=== PATIENT | male | born 1970 | race Caucasian/White ===

== ENCOUNTER 2016-04-27 19:44 | Emergency (ER) | payer BC, MEDICARE ==
[~2016-04-27] VITALS: Ht 175.3 cm; Wt 149.5 kg
[~2016-04-27 19:44] MED LIST: ABILIFY2 MG PO; ABILIFY5 MG PO; ALLEGRA ALLERG180 MG PO; AMARYL4 MG PO; AMLOPIDINE PO; ASPI81CT PO; ASPIR-LOW81 MG PO; ASPIRIN 32325 MG/TAB PO; ASPIRIN E.C. 8181 MG PO; BACTRIM DS 8001 TAB PO; BUSPAR 15MG TAB15 MG PO; BUSPAR DIVIDOSE15 MG PO; BUSPAR10 MG PO; CARAFATE 1GM1 G PO; CARDI-OMEGA1000 MG PO; CARTIA XT180 MG PO; CELEXA 20MG20 MG/TAB PO; CEPHALEXIN500 M1 PO; CIPRO 500MG TA500 MG PO; CLOPIDOGREL PO; COLACE 100100 MG/CAP PO; COZAAR 50MG50 MG/TAB PO; COZAAR100 MG PO; CYMBALTA 30MG30 MG PO; CYMBALTA 60MG60 MG PO; DEPO-TESTOS100 MG/ML IM; DITROPAN 5MG TAB5 MG PO; DOXYCYCLINE 10100 MG PO; EFFIENT10 MG PO; FARXIGA5 PO; FLEXERIL10 MG PO; FLUOXETINE PO; FORTAMET500 MG PO; GABAPENTIN400 M1 PO; GEMFIBROZIL600 MG PO; GLUCOPHAGE1000 MG PO; GLUCOPHAGE500 MG PO; HUMULIN N 10100 U/ML SC; HUMULIN R 10100 U/ML SC; HUMULIN R U-100 U/ML IJ; HUMULIN SC; IMDUR 30MG30 MG/TAB PO; IMDUR 60MG60 MG/TAB PO; INSULIN 70/3100 U/ML SQ; INSULIN HUMA100 U/ML IJ; INSULIN N (N100 U/ML SC; INSULIN STAN U SQ; INVOKAMET1; INVOKAMET4; ISOSORBIDE30 MG PO; JANUVIA 100MG100 MG PO; K-DUR 2020 MEQ PO; LAMICTAL 100MG100 MG PO; LAMICTAL 25MG T25 MG PO; LAMICTAL ODT50 MG PO; LAMICTAL200 MG PO; LANTUS100 U/ML SC; LANTUS100 U/ML SQ; LASIX 20MG TABL20 MG PO; LASIX 40MG TABL40 MG PO; LASIX40 MG PO; LEVAQUIN 5500 MG/TA1 PO; LEVEMIR SQ; LEVEMIR100 U/ML SC; LIPITOR 80MG80 MG PO; LIPITOR80 MG PO; LISINOPRIL10 MG PO; LISINOPRIL5 MG PO; LOPRESSOR 550 MG/TAB PO; LORTAB 7.5/5001 TAB PO; LYRICA 100MG C100 M1 PO; MELATONIN0.3 MG PO; METOPROLOL SUCC25 MG PO; METRONIDAZOLE500 MG PO; MOTRIN800 MG PO; MULTIPLE VITAMI1 CAP PO; MYRBETR25MG PO; NEURONTIN400 MG PO; NITRO-DUR0.4 MG/PAT TD; NITROQUICK0.4 MG SL; NITROSTAT0.4 MG/TAB SL; NORCO 325 MG-51 TAB PO; NORCO 325 MG-7.1 TAB PO; NORVASC 5MG5 MG/TAB PO; NORVASC5 MG PO; NOVOLIN N100 U/ML SC; NOVOLIN R100 U/ML; NOVOLIN R100 U/ML SC; NOVOLIN R100 U/ML SQ; NOVOLOG 100U100 U/ML SQ; NOVOLOG FLEX100 U/ML SC; NOVOLOG FLEX100 U/ML SQ; NOVOLOG100 U/ML SC; OMEPRAZOLE40 MG PO; OXYCODONE5 MG PO; PERCOCET 325 MG1 TA2 PO; PLAVIX 75MG TAB75 MG PO; PRAVASTATIN SOD80 MG PO; PRILOSEC 20MG20 MG PO; PROTONIX 40MG T40 MG PO; PROTONIX20 MG PO; PROZAC 20MG20 MG PO; PROZAC40 MG PO; RANITIDINE HYD300 MG PO; RISPERDAL 0.5M0.5 MG PO; ROXICODONE 55 MG/TAB PO; ST. JOSEPH81 M2 PO; SYNJARDY 5-1,01 EACH PO; TAZTIA180; TESSALON PERLE200 MG PO; TOPCARE ASPIRI325 MG PO; TOPROL XL25 MG PO; TOUJEO300 U/ML SQ; TRAZODO50 MG PO; TYLENOL 500MG500 MG PO; VANCOMYCIN 11 G/VIA1 IV; VICODIN 5/5001 UDTAB PO; ZANTAC 150150 MG PO; ZANTAC 150MG T150 MG PO; ZESTRIL10 MG PO; ZITHROMAX Z PA250 MG PO; ZOFRAN 4MG T4 MG/TAB PO; [UNRECOGNIZED DRUG - OTHER] SQ; fish oil PO
[2016-04-27 19:48] VITALS: TEMP 100.2
[2016-04-27 20:49] LABS: BASO % 0.3 % (0.0-2.0); EOS # 0.1 (0.0-0.7); GRAN # 8.9 (1.4-6.5); GRAN % 71.1 % (42.2-75.2); HEMATOCRIT 47.3 % (42.0-52.0); HEMOGLOBIN 16.1 g/dl (13.5-18.0); LYMPH # 2.1 (1.2-3.4); LYMPH % 16.7 % (20.0-51.0); MEAN CELL VOLUME 80 fl (80.0-100.0); MEAN CORPUSCULAR HEMOGLOBIN 27 pg (27.0-31.0); MEAN CORPUSCULAR HGB CONC 34 g/dl (33.0-37.0); MEAN PLATELET VOLUME 9.5 fl (7.4-10.4); MONO # 1.3 (0.1-0.6); MONO % 10.4 % (1.7-9.3); PLATELET COUNT 217 K/mm3 (130-400); RED BLOOD COUNT 5.89 M/mm3 (4.20-5.60); REDCELL DISTRIBUTION WIDTH-CV 16.4 % (11.5-14.5); WHITE BLOOD COUNT 12.6 K/mm3 (4.8-10.8)
[2016-04-27 20:58] LABS: ADJUSTED CALCIUM 9.9 mg/dL (8.4-10.2); ALBUMIN 4.4 gm/dL (3.5-5.0); BILIRUBIN,TOTAL 1.1 mg/dL (0.0-1.0); CALCIUM 10.2 mg/dL (8.4-10.2); CREATININE, serum 0.96 mg/dL (0.66-1.25); POTASSIUM 4.1 mmol/L (3.4-5.0); TOTAL PROTEIN 8.4 gm/dL (6.4-8.2)
[2016-04-27 21:00] LABS: PH 5 (5-8); SQUAMOUS EPITHELIAL None Seen /hpf; URINE APPEARANCE Clear; URINE BACTERIA None Seen /hpf; URINE BILIRUBIN Negative (NEGATIVE); URINE BLOOD Negative (NEGATIVE); URINE COLOR Straw; URINE GLUCOSE 3+ (NEGATIVE); URINE KETONE Negative (NEGATIVE); URINE RBC None Seen /hpf; URINE UROBILINOGEN Negative (NEGATIVE); URINE WBC 0-2 /hpf
[2016-04-27] MEDS ORDERED: NORCO 325 MG-51 TAB PO (21:53)
[2016-04-27 22:20] VITALS: BP 137/73; PULSE 74
== END 2016-04-27 22:20 | disposition home or self-care (01) ==
LOC: COL.ER 19:44
PROVIDERS: Family Medicine
DX: R10.11 Right upper quadrant pain (principal); R91.1 Solitary pulmonary nodule
CPT/HCPCS: J2270; J2405; J7030; Q9967

== ENCOUNTER → 2016-06-19 | Outpatient (CLI) | payer BC, MEDICARE ==
[~2016-06-19] MED LIST changes: +IMODIUM 2MG CAPS2 MG PO; +LYRICA 150MG C150 MG PO; +MELATONIN3 M1 PO; +MULTI VITAMINS1 TAB PO; +NOVOLOG 100U100 U/M1 SQ; +REXULTI1 MG PO; +SYNJARDY 12.5-1 EACH PO; +TRULICITY1.5 MG/0.5 SQ; +VITAMIN D 1001000 IU PO
== END ==
LOC: BHSO 09:26
DX: F31.81 Bipolar II disorder (principal)

== ENCOUNTER → 2016-07-29 | Outpatient (CLI) | payer BC, MEDICARE | LOC: BHSO 15:27 | DX: F33.1 Major depressive disorder, recurrent, moderate (principal) ==

== ENCOUNTER → 2016-08-29 | Outpatient (CLI) | payer BC, MEDICARE | LOC: BHSO 11:28 | DX: F41.1 Generalized anxiety disorder (principal) ==

== ENCOUNTER 2016-09-22 13:01 | Day surgery (SDC) | payer BC, MEDICARE ==
[~2016-09-22] VITALS: Ht 175.3 cm; Wt 151.9 kg
[~2016-09-22 13:01] MED LIST changes: -IMODIUM 2MG CAPS2 MG PO; -LYRICA 150MG C150 MG PO; -MELATONIN3 M1 PO; -MULTI VITAMINS1 TAB PO; -NOVOLOG 100U100 U/M1 SQ; -REXULTI1 MG PO; -SYNJARDY 12.5-1 EACH PO; -TRULICITY1.5 MG/0.5 SQ; -VITAMIN D 1001000 IU PO
[2016-09-22 13:56] VITALS: BP 115/67; PULSE 64; TEMP 98.6
[2016-09-22] MEDS ORDERED: REXULTI1 MG PO (14:05)
[2016-09-22] MEDS ORDERED: LASIX 20MG TABL20 MG PO (14:06)
[2016-09-22] MEDS ORDERED: SYNJARDY 12.5-1 EACH PO (14:07)
[2016-09-22] MEDS ORDERED: VITAMIN D 1001000 IU PO (14:11)
[2016-09-22] MEDS ORDERED: IMODIUM 2MG CAPS2 MG PO (14:11)
[2016-09-22] MEDS ORDERED: MELATONIN3 M1 PO (14:12)
[2016-09-22] MEDS ORDERED: MULTI VITAMINS1 TAB PO (14:13)
[2016-09-22 14:37] VITALS: BP 101/71; PULSE 67; TEMP 98.8
[2016-09-22 14:52] VITALS: BP 120/71; PULSE 65
[2016-09-22 15:07] VITALS: BP 124/75; PULSE 63
[2016-09-22 15:22] VITALS: BP 132/78; PULSE 64
[2016-09-22 16:13] VITALS: BP 107/70; PULSE 62
== END 2016-09-22 15:40 | disposition home or self-care (01) ==
LOC: SDCO 13:01
DX: K21.0 Gastro-esophageal reflux disease with esophagitis (principal); K29.30 Chronic superficial gastritis without bleeding; R13.10 Dysphagia, unspecified; I50.9 Heart failure, unspecified; I38 Endocarditis, valve unspecified; G47.33 Obstructive sleep apnea (adult) (pediatric); I27.2 Other secondary pulmonary hypertension; I25.119 Atherosclerotic heart disease of native coronary artery with unspecified angina pectoris; K58.0 Irritable bowel syndrome with diarrhea; Z86.14 Personal history of Methicillin resistant Staphylococcus aureus infection; E10.43 Type 1 diabetes mellitus with diabetic autonomic (poly)neuropathy; E10.40 Type 1 diabetes mellitus with diabetic neuropathy, unspecified; K31.84 Gastroparesis; Z79.4 Long term (current) use of insulin; I10 Essential (primary) hypertension; I73.9 Peripheral vascular disease, unspecified; F31.9 Bipolar disorder, unspecified; F32.9 Major depressive disorder, single episode, unspecified; K76.0 Fatty (change of) liver, not elsewhere classified; J45.909 Unspecified asthma, uncomplicated; Z89.512 Acquired absence of left leg below knee; Z89.511 Acquired absence of right leg below knee; Z89.431 Acquired absence of right foot; Z95.1 Presence of aortocoronary bypass graft
CPT/HCPCS: J2704

== ENCOUNTER 2016-10-25 10:10 | Emergency (ER) | payer BC, MEDICARE ==
[~2016-10-25] VITALS: Ht 175.3 cm; Wt 149.1 kg
[~2016-10-25 10:10] MED LIST changes: +IMODIUM 2MG CAPS2 MG PO; +MELATONIN3 M1 PO; +MULTI VITAMINS1 TAB PO; +REXULTI1 MG PO; +SYNJARDY 12.5-1 EACH PO; +VITAMIN D 1001000 IU PO
[2016-10-25 10:13] VITALS: TEMP 98.1
[2016-10-25 10:57] LABS: BASO % 0.2 % (0.0-2.0); EOS # 0.2 (0.0-0.7); EOS % 2.5 % (0-4.0); GRAN # 5.6 (1.4-6.5); GRAN % 63.6 % (42.2-75.2); HEMATOCRIT 50.2 % (42.0-52.0); LYMPH % 23.2 % (20.0-51.0); MEAN CELL VOLUME 83 fl (80.0-100.0); MEAN CORPUSCULAR HEMOGLOBIN 28 pg (27.0-31.0); MEAN CORPUSCULAR HGB CONC 34 g/dl (33.0-37.0); MEAN PLATELET VOLUME 9.6 fl (7.4-10.4); MONO # 0.9 (0.1-0.6); MONO % 9.9 % (1.7-9.3); PLATELET COUNT 180 K/mm3 (130-400); RED BLOOD COUNT 6.04 M/mm3 (4.20-5.60); REDCELL DISTRIBUTION WIDTH-CV 16.5 % (11.5-14.5); WHITE BLOOD COUNT 8.8 K/mm3 (4.8-10.8)
[2016-10-25 11:09] LABS: ADJUSTED CALCIUM 9.2 mg/dL (8.4-10.2); ALBUMIN 4.5 gm/dL (3.5-5.0); BILIRUBIN,TOTAL 0.9 mg/dL (0.0-1.0); CALCIUM 9.6 mg/dL (8.4-10.2); CREATININE, serum 1.07 mg/dL (0.66-1.25); TOTAL PROTEIN 8.4 gm/dL (6.4-8.2)
[2016-10-25] MEDS ORDERED: NOVOLOG 100U100 U/M1 SQ (11:35)
[2016-10-25] MEDS ORDERED: TRULICITY1.5 MG/0.5 SQ (11:40)
[2016-10-25] MEDS ORDERED: LYRICA 150MG C150 MG PO (11:40)
[2016-10-25 12:27] LABS: PH 5 (5-8); SQUAMOUS EPITHELIAL 0-2 /hpf; URINE APPEARANCE Clear; URINE BACTERIA None Seen /hpf; URINE BILIRUBIN Negative (NEGATIVE); URINE BLOOD Negative (NEGATIVE); URINE COLOR Yellow; URINE GLUCOSE 3+ (NEGATIVE); URINE KETONE Negative (NEGATIVE); URINE RBC 0-2 /hpf; URINE UROBILINOGEN Negative (NEGATIVE); URINE WBC 0-2 /hpf
[2016-10-25 13:10] VITALS: BP 137/87; PULSE 79
== END 2016-10-25 13:11 | disposition home or self-care (01) ==
LOC: COL.ER 10:10
PROVIDERS: Emergency Medicine
DX: K52.9 Noninfective gastroenteritis and colitis, unspecified (principal); E11.43 Type 2 diabetes mellitus with diabetic autonomic (poly)neuropathy; K31.84 Gastroparesis; I25.10 Atherosclerotic heart disease of native coronary artery without angina pectoris; I25.2 Old myocardial infarction; I10 Essential (primary) hypertension; Z95.1 Presence of aortocoronary bypass graft; Z89.512 Acquired absence of left leg below knee; Z89.511 Acquired absence of right leg below knee; Z79.4 Long term (current) use of insulin; E66.01 Morbid (severe) obesity due to excess calories; Z68.42 Body mass index [BMI] 45.0-49.9, adult
CPT/HCPCS: J2405; J3010; J7030; Q9967

== ENCOUNTER → 2016-11-07 | Outpatient (CLI) | payer MEDICARE, BC ==
[~2016-11-07] MED LIST changes: +LYRICA 150MG C150 MG PO; +NOVOLOG 100U100 U/M1 SQ; +TRULICITY1.5 MG/0.5 SQ
== END ==
LOC: BHSO 13:39
DX: F33.1 Major depressive disorder, recurrent, moderate (principal)

== ENCOUNTER → 2016-12-18 | Outpatient (CLI) | payer MEDICARE, BC | LOC: WCC 08:33 | DX: E11.621 Type 2 diabetes mellitus with foot ulcer (principal); L97.519 Non-pressure chronic ulcer of other part of right foot with unspecified severity; L84 Corns and callosities; Z89.512 Acquired absence of left leg below knee; Z89.511 Acquired absence of right leg below knee | CPT/HCPCS: 17717; 27510; A6197; A6212; G0463 ==

== ENCOUNTER → 2016-12-25 | Outpatient (CLI) | payer MEDICARE, BC | LOC: WCC 09:44 | DX: L89.899 Pressure ulcer of other site, unspecified stage (principal); E11.9 Type 2 diabetes mellitus without complications; Z89.512 Acquired absence of left leg below knee; Z89.511 Acquired absence of right leg below knee | CPT/HCPCS: 17717; 27510; A6197; A6212; G0463 ==

== ENCOUNTER → 2016-12-30 | Outpatient (CLI) | payer MEDICARE, BC | LOC: BHSO 12:44 | DX: F31.73 Bipolar disorder, in partial remission, most recent episode manic (principal) ==

== ENCOUNTER → 2016-12-31 | Outpatient (CLI) | payer MEDICARE, BC | LOC: WCC 11:40 | DX: T87.89 Other complications of amputation stump (principal); L89.899 Pressure ulcer of other site, unspecified stage; Z89.512 Acquired absence of left leg below knee; Z89.511 Acquired absence of right leg below knee; E11.9 Type 2 diabetes mellitus without complications | CPT/HCPCS: 17717; 27510; A6197; A6212 ==

== ENCOUNTER → 2017-01-05 | Outpatient (CLI) | payer MEDICARE, BC | LOC: WCC 08:26 | DX: L89.899 Pressure ulcer of other site, unspecified stage (principal); Z89.512 Acquired absence of left leg below knee; Z89.511 Acquired absence of right leg below knee | CPT/HCPCS: 17717; A6212; G0463 ==

== ENCOUNTER → 2017-01-19 | Outpatient (CLI) | payer MEDICARE, BC | LOC: WCC 08:38 | DX: T87.89 Other complications of amputation stump (principal) | CPT/HCPCS: G0463 ==

== ENCOUNTER 2017-01-29 20:25 | Emergency (ER) | payer MEDICARE, BC ==
[~2017-01-29] VITALS: Ht 175.3 cm; Wt 147.7 kg
[2017-01-29 20:27] VITALS: BP 173/83; TEMP 98.4
[2017-01-29 21:18] LABS: BASO % 0.3 % (0.0-2.0); EOS # 0.2 (0.0-0.7); EOS % 1.8 % (0-4.0); GRAN # 6.3 (1.4-6.5); GRAN % 63.8 % (42.2-75.2); HEMATOCRIT 48.5 % (42.0-52.0); HEMOGLOBIN 16.1 g/dl (13.5-18.0); LYMPH # 2.1 (1.2-3.4); LYMPH % 21.1 % (20.0-51.0); MEAN CELL VOLUME 87 fl (80.0-100.0); MEAN CORPUSCULAR HEMOGLOBIN 29 pg (27.0-31.0); MEAN CORPUSCULAR HGB CONC 33 g/dl (33.0-37.0); MEAN PLATELET VOLUME 9.8 fl (7.4-10.4); MONO # 1.3 (0.1-0.6); MONO % 12.7 % (1.7-9.3); PLATELET COUNT 194 K/mm3 (130-400); REDCELL DISTRIBUTION WIDTH-CV 15.4 % (11.5-14.5); WHITE BLOOD COUNT 9.8 K/mm3 (4.8-10.8)
[2017-01-29 21:32] LABS: ADJUSTED CALCIUM 9.2 mg/dL (8.4-10.2); ALBUMIN 4.5 gm/dL (3.5-5.0); BILIRUBIN,TOTAL 1.2 mg/dL (0.0-1.0); C-REACTIVE PROTEIN 2.1 mg/dL (0.0-0.9); CALCIUM 9.6 mg/dL (8.4-10.2); CREATININE, serum 1.05 mg/dL (0.66-1.25); POTASSIUM 4.2 mmol/L (3.4-5.0); TOTAL PROTEIN 8.1 gm/dL (6.4-8.2)
[2017-01-29 21:33] LABS: PH 7 (5-8); SQUAMOUS EPITHELIAL None Seen /hpf; URINE APPEARANCE Clear; URINE BACTERIA None Seen /hpf; URINE BILIRUBIN Negative (NEGATIVE); URINE BLOOD Negative (NEGATIVE); URINE COLOR Straw; URINE GLUCOSE 3+ (NEGATIVE); URINE KETONE Negative (NEGATIVE); URINE RBC 0-2 /hpf; URINE UROBILINOGEN Negative (NEGATIVE); URINE WBC 0-2 /hpf
[2017-01-29] MEDS ORDERED: MYRBETR50MG PO (22:28)
[2017-01-29 23:45] VITALS: PULSE 88
== END 2017-01-29 23:45 | disposition home or self-care (01) ==
LOC: COL.ER 20:25
PROVIDERS: Physician Assistant
DX: R10.31 Right lower quadrant pain (principal); E11.51 Type 2 diabetes mellitus with diabetic peripheral angiopathy without gangrene; I11.0 Hypertensive heart disease with heart failure; I50.9 Heart failure, unspecified; I25.10 Atherosclerotic heart disease of native coronary artery without angina pectoris; E78.5 Hyperlipidemia, unspecified; Z79.4 Long term (current) use of insulin; Z79.02 Long term (current) use of antithrombotics/antiplatelets; Z95.1 Presence of aortocoronary bypass graft; Z90.49 Acquired absence of other specified parts of digestive tract; Z89.512 Acquired absence of left leg below knee; Z89.511 Acquired absence of right leg below knee
CPT/HCPCS: J1170; J2550; J7030; Q9967

== ENCOUNTER 2017-03-09 11:39 | Inpatient (IN) | payer MEDICARE, BC ==
[2017-03-09] VITALS (153 sets, daily range): BP systolic 101–123; BP diastolic 56–73; PULSE 58–70; TEMP 97.4–98.1; O2SAT 92–100
[~2017-03-09] VITALS: Ht 175.3 cm; Wt 142.7 kg
[~2017-03-09 11:39] MED LIST changes: +MYRBETR50MG PO
[2017-03-09] MEDS ORDERED: ASPIRIN 32325 MG/TAB PO (12:00)
[2017-03-09 12:19] LABS: BASO % 0.4 % (0.0-2.0); EOS # 0.1 (0.0-0.7); EOS % 1.3 % (0-4.0); GRAN # 4.6 (1.4-6.5); HEMATOCRIT 49.4 % (42.0-52.0); HEMOGLOBIN 16.4 g/dl (13.5-18.0); MEAN CELL VOLUME 87 fl (80.0-100.0); MEAN CORPUSCULAR HEMOGLOBIN 29 pg (27.0-31.0); MEAN CORPUSCULAR HGB CONC 33 g/dl (33.0-37.0); MONO # 0.6 (0.1-0.6); MONO % 8.5 % (1.7-9.3); PLATELET COUNT 205 K/mm3 (130-400); RED BLOOD COUNT 5.68 M/mm3 (4.20-5.60); WHITE BLOOD COUNT 7.5 K/mm3 (4.8-10.8)
[2017-03-09 12:24] LABS: PROTHROMBIN TIME 10.5 SECONDS (9.7-12.8)
[2017-03-09 13:14] LABS: ALANINE AMINOTRANSFERASE 45 U/L (21-72); ALBUMIN 4.5 gm/dL (3.5-5.0); ALKALINE PHOSPHATASE 107 U/L (50-136); ANION GAP 13 mmol/L (7-16); BILIRUBIN,TOTAL 0.7 mg/dL (0.0-1.0); BLOOD UREA NITROGEN 18 mg/dL (9-20); CALCIUM 9.4 mg/dL (8.4-10.2); CARBON DIOXIDE 23 mmol/L (22-30); CHLORIDE 105 mmol/L (98-107); CREATINE KINASE 134 U/L (55-170); CREATININE, serum 1.04 mg/dL (0.66-1.25); GLUCOSE 185 mg/dL (74-106); LIPASE 101 U/L (23-300); POTASSIUM 4.1 mmol/L (3.4-5.0); SODIUM 141 mmol/L (137-145); TOTAL PROTEIN 7.6 gm/dL (6.4-8.2)
[2017-03-09 14:00] LABS: B-TYPE NATRIURETIC PEPTIDE 115 pg/mL (0-125)
[2017-03-09 14:01] LABS: TROPONIN-I < 0.012 ng/mL (0.000-0.034)
[2017-03-09] MEDS ORDERED: BELSOMRA10 MG PO (18:04)
[2017-03-10] VITALS (741 sets, daily range): BP systolic 94–134; BP diastolic 54–75; PULSE 56–84; TEMP 97.1–97.9; O2SAT 90–100
[2017-03-11] VITALS (403 sets, daily range): BP systolic 95–134; BP diastolic 65–75; PULSE 60–63; TEMP 97.6–98; O2SAT 93–99
[2017-03-11 05:48] LABS: HEMATOCRIT 48.4 % (42.0-52.0); HEMOGLOBIN 15.8 g/dl (13.5-18.0); MEAN CELL VOLUME 88 fl (80.0-100.0); MEAN CORPUSCULAR HEMOGLOBIN 29 pg (27.0-31.0); MEAN CORPUSCULAR HGB CONC 33 g/dl (33.0-37.0); MEAN PLATELET VOLUME 9.2 fl (7.4-10.4); PLATELET COUNT 182 K/mm3 (130-400); WHITE BLOOD COUNT 7.2 K/mm3 (4.8-10.8)
[2017-03-11 06:03] LABS: CREATININE, serum 0.94 mg/dL (0.66-1.25); POTASSIUM 3.8 mmol/L (3.4-5.0)
[2017-03-11] MEDS ORDERED: ASPIRIN 81M81 MG/TA2 PO (09:38)
[2017-03-11] MEDS ORDERED: BRILINTA90 MG PO (09:40)
[2017-03-11] MEDS ORDERED: PROAIR HFA0.09 MG/AC IH (09:42)
== END 2017-03-11 11:44 | disposition home or self-care (01) | DRG 247 ==
LOC: COL.ER 11:39 → ICU 14:32
PROVIDERS: Emergency Medicine; Internal Medicine
PROC: 027035Z Dilation of Coronary Artery, One Artery with Two Drug-eluting Intraluminal Devices, Percutaneous Approach (ICD-10-PCS; principal; 2017-03-10)
PROC: B2111ZZ Fluoroscopy of Multiple Coronary Arteries using Low Osmolar Contrast (ICD-10-PCS; 2017-03-10)
PROC: B2151ZZ Fluoroscopy of Left Heart using Low Osmolar Contrast (ICD-10-PCS; 2017-03-10)
DX: I25.110 Atherosclerotic heart disease of native coronary artery with unstable angina pectoris (principal); Z68.42 Body mass index [BMI] 45.0-49.9, adult; I50.32 Chronic diastolic (congestive) heart failure; I25.82 Chronic total occlusion of coronary artery; I11.0 Hypertensive heart disease with heart failure; E11.42 Type 2 diabetes mellitus with diabetic polyneuropathy; E11.319 Type 2 diabetes mellitus with unspecified diabetic retinopathy without macular edema; Z79.4 Long term (current) use of insulin; Z95.1 Presence of aortocoronary bypass graft; Z89.512 Acquired absence of left leg below knee; Z89.511 Acquired absence of right leg below knee; Z95.5 Presence of coronary angioplasty implant and graft; E66.01 Morbid (severe) obesity due to excess calories; I27.20 Pulmonary hypertension, unspecified; J45.909 Unspecified asthma, uncomplicated
CPT/HCPCS: 99232-AI; 99239; C1725; C1760; C1769; C1874; C1887; C1894; C9600; G0378; J0583; J1650; J1815; J2250; J3010; J7030; Q9967

== ENCOUNTER 2017-03-14 22:00 | Emergency (ER) | payer MEDICARE, BC ==
[~2017-03-14] VITALS: Ht 175.3 cm; Wt 145.5 kg
[~2017-03-14 22:00] MED LIST changes: +ASPIRIN 81M81 MG/TA2 PO; +BELSOMRA10 MG PO; +BRILINTA90 MG PO; +PROAIR HFA0.09 MG/AC IH
[2017-03-14 22:05] VITALS: TEMP 99.6
[2017-03-14 23:00] LABS: BASO % 0.2 % (0.0-2.0); EOS # 0.1 (0.0-0.7); GRAN # 7.4 (1.4-6.5); GRAN % 68.5 % (42.2-75.2); HEMATOCRIT 48.9 % (42.0-52.0); HEMOGLOBIN 16.4 g/dl (13.5-18.0); LYMPH # 1.9 (1.2-3.4); LYMPH % 17.2 % (20.0-51.0); MEAN CELL VOLUME 86 fl (80.0-100.0); MEAN CORPUSCULAR HEMOGLOBIN 29 pg (27.0-31.0); MEAN CORPUSCULAR HGB CONC 34 g/dl (33.0-37.0); MEAN PLATELET VOLUME 9.7 fl (7.4-10.4); MONO # 1.4 (0.1-0.6); MONO % 12.6 % (1.7-9.3); PLATELET COUNT 202 K/mm3 (130-400); RED BLOOD COUNT 5.69 M/mm3 (4.20-5.60); WHITE BLOOD COUNT 10.8 K/mm3 (4.8-10.8)
[2017-03-14 23:09] LABS: ADJUSTED CALCIUM 9.5 mg/dL (8.4-10.2); ALBUMIN 4.4 gm/dL (3.5-5.0); BILIRUBIN,TOTAL 1.3 mg/dL (0.0-1.0); CALCIUM 9.8 mg/dL (8.4-10.2); CREATININE, serum 0.98 mg/dL (0.66-1.25); POTASSIUM 3.6 mmol/L (3.4-5.0); TOTAL PROTEIN 8.1 gm/dL (6.4-8.2)
[2017-03-14 23:26] LABS: TROPONIN-I 0.012 ng/mL (0.000-0.034)
[2017-03-14 23:38] LABS: COLLECTION METHOD CLEAN CATCH
[2017-03-14 23:42] LABS: INFLUENZA A NEGATIVE; INFLUENZA B NEGATIVE
[2017-03-14 23:45] LABS: MUCOUS Present /lpf; PH 5 (5-8); SQUAMOUS EPITHELIAL None Seen /hpf; URINE APPEARANCE Clear; URINE BACTERIA None Seen /hpf; URINE BILIRUBIN Negative (NEGATIVE); URINE BLOOD 2+ (NEGATIVE); URINE COLOR Yellow; URINE GLUCOSE 3+ (NEGATIVE); URINE KETONE Negative (NEGATIVE); URINE LEUKOCYTE ESTERASE Negative (NEGATIVE); URINE PROTEIN(semi-quant) Negative (NEGATIVE); URINE RBC 0-2 /hpf; URINE UROBILINOGEN Negative (NEGATIVE); URINE WBC None Seen /hpf
[2017-03-15 03:30] VITALS: PULSE 86
[2017-03-15 03:48] VITALS: BP 118/60
[2017-03-15] MEDS ORDERED: ASPIRIN 32325 MG/TAB PO (04:08)
== END 2017-03-15 03:48 | disposition home or self-care (01) ==
LOC: COL.ER 22:00
PROVIDERS: Emergency Medicine
DX: R06.00 Dyspnea, unspecified (principal); I11.0 Hypertensive heart disease with heart failure; I50.9 Heart failure, unspecified; I25.10 Atherosclerotic heart disease of native coronary artery without angina pectoris; F31.9 Bipolar disorder, unspecified; I27.20 Pulmonary hypertension, unspecified; E11.51 Type 2 diabetes mellitus with diabetic peripheral angiopathy without gangrene; E78.5 Hyperlipidemia, unspecified; Z95.5 Presence of coronary angioplasty implant and graft; Z89.512 Acquired absence of left leg below knee; Z79.82 Long term (current) use of aspirin; Z79.4 Long term (current) use of insulin
CPT/HCPCS: J7050; Q9967

== ENCOUNTER 2017-03-19 12:10 | Inpatient (IN) | payer MEDICARE, BC ==
[~2017-03-19] VITALS: Ht 175.3 cm; Wt 141.7 kg
[2017-03-19] MEDS ORDERED: ASPIRIN 81M81 MG/TA2 PO (12:32)
[2017-03-19 13:13] LABS: BASO % 0.3 % (0.0-2.0); EOS # 0.1 (0.0-0.7); EOS % 0.7 % (0-4.0); GRAN # 8.6 (1.4-6.5); GRAN % 74.5 % (42.2-75.2); HEMATOCRIT 46.8 % (42.0-52.0); HEMOGLOBIN 15.7 g/dl (13.5-18.0); LYMPH # 1.3 (1.2-3.4); LYMPH % 11.2 % (20.0-51.0); MEAN CELL VOLUME 86 fl (80.0-100.0); MEAN CORPUSCULAR HEMOGLOBIN 29 pg (27.0-31.0); MEAN CORPUSCULAR HGB CONC 34 g/dl (33.0-37.0); MEAN PLATELET VOLUME 9.1 fl (7.4-10.4); MONO # 1.4 (0.1-0.6); MONO % 12.3 % (1.7-9.3); PLATELET COUNT 274 K/mm3 (130-400); RED BLOOD COUNT 5.46 M/mm3 (4.20-5.60); WHITE BLOOD COUNT 11.5 K/mm3 (4.8-10.8)
[2017-03-19 13:24] LABS: ADJUSTED CALCIUM 10.2 mg/dL (8.4-10.2); ALBUMIN 4.5 gm/dL (3.5-5.0); BILIRUBIN,TOTAL 1.1 mg/dL (0.0-1.0); CALCIUM 10.6 mg/dL (8.4-10.2); CREATININE, serum 0.89 mg/dL (0.66-1.25); POTASSIUM 4.3 mmol/L (3.4-5.0); TOTAL PROTEIN 8.8 gm/dL (6.4-8.2)
[2017-03-19 14:39] VITALS: BP 147/73; PULSE 98; TEMP 98.3
[2017-03-19 17:00] VITALS: BP 162/78; PULSE 98; TEMP 98.4
[2017-03-19 20:28] VITALS: BP 161/66; PULSE 95; TEMP 98.9
[2017-03-19 23:42] VITALS: BP 141/81; PULSE 72; TEMP 98.4
[2017-03-20 04:11] VITALS: BP 133/69; PULSE 65; TEMP 97.1
[2017-03-20 06:26] LABS: BASO % 0.3 % (0.0-2.0); EOS # 0.2 (0.0-0.7); EOS % 2.1 % (0-4.0); GRAN # 6.4 (1.4-6.5); GRAN % 68.6 % (42.2-75.2); HEMATOCRIT 41.6 % (42.0-52.0); LYMPH # 1.4 (1.2-3.4); LYMPH % 15.1 % (20.0-51.0); MEAN CELL VOLUME 87 fl (80.0-100.0); MEAN CORPUSCULAR HEMOGLOBIN 29 pg (27.0-31.0); MEAN CORPUSCULAR HGB CONC 33 g/dl (33.0-37.0); MONO # 1.2 (0.1-0.6); MONO % 13.1 % (1.7-9.3); PLATELET COUNT 263 K/mm3 (130-400); WHITE BLOOD COUNT 9.3 K/mm3 (4.8-10.8)
[2017-03-20 06:35] LABS: HEMOGLOBIN 13.7 g/dl (13.5-18.0)
[2017-03-20 06:36] LABS: CALCIUM 9.1 mg/dL (8.4-10.2); CREATININE, serum 0.79 mg/dL (0.66-1.25); MAGNESIUM 1.9 mg/dL (1.6-2.3); POTASSIUM 3.6 mmol/L (3.4-5.0)
[2017-03-20 07:35] VITALS: BP 146/79; PULSE 67; TEMP 97.7
[2017-03-20 12:18] VITALS: BP 152/74; PULSE 70; TEMP 96.6
[2017-03-20 16:14] VITALS: BP 156/71; PULSE 73; TEMP 98.3
[2017-03-20 19:27] VITALS: BP 149/76; PULSE 78; TEMP 98.2
[2017-03-21 00:44] VITALS: BP 137/72; PULSE 68; TEMP 97.1
[2017-03-21 05:00] VITALS: BP 140/74; PULSE 63; TEMP 97
[2017-03-21 07:18] LABS: BASO # 0.1 (0.0-0.2); BASO % 0.6 % (0.0-2.0); EOS # 0.2 (0.0-0.7); GRAN # 6.6 (1.4-6.5); GRAN % 68.1 % (42.2-75.2); HEMATOCRIT 42.5 % (42.0-52.0); LYMPH # 1.7 (1.2-3.4); LYMPH % 17.3 % (20.0-51.0); MEAN CELL VOLUME 85 fl (80.0-100.0); MEAN CORPUSCULAR HEMOGLOBIN 28 pg (27.0-31.0); MEAN CORPUSCULAR HGB CONC 33 g/dl (33.0-37.0); MEAN PLATELET VOLUME 9.1 fl (7.4-10.4); MONO # 1.1 (0.1-0.6); MONO % 10.8 % (1.7-9.3); PLATELET COUNT 299 K/mm3 (130-400); RED BLOOD COUNT 4.98 M/mm3 (4.20-5.60); WHITE BLOOD COUNT 9.7 K/mm3 (4.8-10.8)
[2017-03-21 07:38] LABS: CREATININE, serum 0.77 mg/dL (0.66-1.25); POTASSIUM 3.5 mmol/L (3.4-5.0)
[2017-03-21 08:33] VITALS: BP 136/74; PULSE 69; TEMP 98.1
[2017-03-21 12:05] VITALS: BP 133/74; PULSE 64; TEMP 97.9
[2017-03-21 15:41] VITALS: BP 129/64; PULSE 65; TEMP 97.7
[2017-03-21 19:47] VITALS: BP 137/69; PULSE 72; TEMP 99
[2017-03-22 00:21] VITALS: BP 124/72; PULSE 65; TEMP 98.2
[2017-03-22 03:15] VITALS: BP 112/60; PULSE 62; TEMP 97.2
[2017-03-22 06:44] LABS: HEMATOCRIT 41.6 % (42.0-52.0); HEMOGLOBIN 13.8 g/dl (13.5-18.0); MEAN CELL VOLUME 85 fl (80.0-100.0); MEAN CORPUSCULAR HEMOGLOBIN 28 pg (27.0-31.0); MEAN CORPUSCULAR HGB CONC 33 g/dl (33.0-37.0); MEAN PLATELET VOLUME 9.2 fl (7.4-10.4); PLATELET COUNT 323 K/mm3 (130-400); RED BLOOD COUNT 4.89 M/mm3 (4.20-5.60); WHITE BLOOD COUNT 9.9 K/mm3 (4.8-10.8)
[2017-03-22 06:45] LABS: ADD PATHOLOGY DIFF REVIEW NO
[2017-03-22 07:09] LABS: BAND 15 % (0-10); EOSINOPHIL 1 % (0-4); LYMPHOCYTE 23 % (20.0-51.0); NEUTROPHILS 60 % (42.0-75.2); PLATELET ESTIMATE NORMAL (NORMAL); TOTAL CELLS COUNTED 100
[2017-03-22 07:10] LABS: MICROCYTOSIS 1+
[2017-03-22 08:05] VITALS: BP 113/69; PULSE 61; TEMP 97.3
[2017-03-22 11:42] VITALS: BP 111/58; PULSE 60; TEMP 96.9
[2017-03-22 15:18] VITALS: BP 110/52; PULSE 59; TEMP 97.6
[2017-03-22 20:24] VITALS: BP 131/71; PULSE 63; TEMP 97.6
[2017-03-23] VITALS (7 sets, daily range): BP systolic 104–144; BP diastolic 48–96; PULSE 55–70; TEMP 97.3–98.9
[2017-03-24 05:27] VITALS: BP 118/72; PULSE 50; TEMP 97.9
[2017-03-24 06:36] LABS: HEMATOCRIT 44.5 % (42.0-52.0); HEMOGLOBIN 14.2 g/dl (13.5-18.0); MEAN CELL VOLUME 87 fl (80.0-100.0); MEAN CORPUSCULAR HEMOGLOBIN 28 pg (27.0-31.0); MEAN CORPUSCULAR HGB CONC 32 g/dl (33.0-37.0); PLATELET COUNT 357 K/mm3 (130-400); RED BLOOD COUNT 5.09 M/mm3 (4.20-5.60); WHITE BLOOD COUNT 8.5 K/mm3 (4.8-10.8)
[2017-03-24 06:42] LABS: ADD PATHOLOGY DIFF REVIEW NO
[2017-03-24 06:57] LABS: CALCIUM 9.3 mg/dL (8.4-10.2); CREATININE, serum 0.86 mg/dL (0.66-1.25); MAGNESIUM 1.9 mg/dL (1.6-2.3); PHOSPHOROUS 4.6 mg/dL (2.5-4.5); POTASSIUM 3.6 mmol/L (3.4-5.0)
[2017-03-24 07:47] VITALS: BP 105/61; PULSE 48; TEMP 97.6
[2017-03-24 08:09] LABS: BAND 30 % (0-10); LYMPHOCYTE 32 % (20.0-51.0); METAMYELOCYTE 1 % (0-0); NEUTROPHILS 34 % (42.0-75.2); TOTAL CELLS COUNTED 100
[2017-03-24 08:11] LABS: PLATELET ESTIMATE NORMAL (NORMAL)
[2017-03-24] MEDS ORDERED: CEPHALEXIN500 M1 PO (08:28)
[2017-03-24 11:17] VITALS: BP 115/57; PULSE 60; TEMP 97.7
[2017-03-24 16:01] VITALS: BP 126/57; PULSE 55; TEMP 98
[2017-03-24 21:09] VITALS: BP 131/60; PULSE 59; TEMP 98
[2017-03-25 01:01] VITALS: BP 102/57; PULSE 55; TEMP 97.5
[2017-03-25 04:41] VITALS: BP 109/59; PULSE 55; TEMP 97.5
[2017-03-25 07:03] VITALS: BP 122/58; PULSE 58; TEMP 97.5
[2017-03-25 11:12] VITALS: BP 130/70; PULSE 59; TEMP 97.6
== END 2017-03-25 17:33 | disposition home or self-care (01) | DRG 862 ==
LOC: COL.ER 12:10 → MEDICAL 12:50
PROVIDERS: Nurse Practitioner; Nurse Practitioner Family; Physician Assistant
PROC: 0J9C3ZZ Drainage of Pelvic Region Subcutaneous Tissue and Fascia, Percutaneous Approach (ICD-10-PCS; principal; 2017-03-23)
DX: T81.4XXA Infection following a procedure, initial encounter (principal); A40.1 Sepsis due to streptococcus, group B; L02.818 Cutaneous abscess of other sites; E87.2 Acidosis; Z68.42 Body mass index [BMI] 45.0-49.9, adult; I50.32 Chronic diastolic (congestive) heart failure; E11.65 Type 2 diabetes mellitus with hyperglycemia; I25.10 Atherosclerotic heart disease of native coronary artery without angina pectoris; I11.0 Hypertensive heart disease with heart failure; E11.319 Type 2 diabetes mellitus with unspecified diabetic retinopathy without macular edema; E11.42 Type 2 diabetes mellitus with diabetic polyneuropathy; Z79.4 Long term (current) use of insulin; Z95.1 Presence of aortocoronary bypass graft; Z95.5 Presence of coronary angioplasty implant and graft; Z89.512 Acquired absence of left leg below knee; Z89.511 Acquired absence of right leg below knee; E66.01 Morbid (severe) obesity due to excess calories; F31.9 Bipolar disorder, unspecified; B95.1 Streptococcus, group B, as the cause of diseases classified elsewhere; B96.1 Klebsiella pneumoniae [K. pneumoniae] as the cause of diseases classified elsewhere
CPT/HCPCS: OP; 99223-AI; 99231-AI; 99232-AI; 99239; A9284; G0378; J0696; J1650; J1815; J2270; J2550; J3370; J7030; J7040

== ENCOUNTER → 2017-03-31 | Outpatient (CLI) | payer MEDICARE, BC | LOC: BHSO 09:35 | DX: F41.1 Generalized anxiety disorder (principal) ==

== ENCOUNTER → 2017-04-09 | Outpatient (CLI) | payer MEDICARE, BC ==
[~2017-04-09] VITALS: Ht 176.5 cm; Wt 152.0 kg
[~2017-04-09] MED LIST changes: +HUMALOG PEN100 U/ML SQ
[2017-04-09 11:13] VITALS: BP 130/56; PULSE 72
== END ==
LOC: LIGHT 09:39
DX: E11.9 Type 2 diabetes mellitus without complications (principal); I10 Essential (primary) hypertension; E66.01 Morbid (severe) obesity due to excess calories; Z68.42 Body mass index [BMI] 45.0-49.9, adult; Z71.3 Dietary counseling and surveillance; E78.5 Hyperlipidemia, unspecified
CPT/HCPCS: G0463

== ENCOUNTER → 2017-05-14 | Outpatient (CLI) | payer MEDICARE, BC ==
[~2017-05-14] VITALS: Ht 176.5 cm; Wt 153.3 kg
[2017-05-14 11:24] VITALS: BP 132/80; PULSE 68
== END ==
LOC: LIGHT 10:48
DX: E11.9 Type 2 diabetes mellitus without complications (principal); Z79.4 Long term (current) use of insulin; I10 Essential (primary) hypertension; E66.01 Morbid (severe) obesity due to excess calories; Z71.3 Dietary counseling and surveillance; E78.5 Hyperlipidemia, unspecified
CPT/HCPCS: G0463

== ENCOUNTER → 2017-05-18 | Outpatient (CLI) | payer MEDICARE, BC | LOC: LIGHT 05-04 14:09 | DX: Z01.89 Encounter for other specified special examinations (principal) ==

== ENCOUNTER 2017-05-30 06:36 | Emergency (ER) | payer BC, MEDICARE ==
[~2017-05-30] VITALS: Ht 175 cm; Wt 154.5 kg
[2017-05-30 06:43] VITALS: TEMP 99.3
[2017-05-30] MEDS ORDERED: NORCO 325 MG-51 TAB PO (08:07)
[2017-05-30] MEDS ORDERED: FLEXERIL 1010 MG/TAB PO (08:07)
[2017-05-30 08:17] LABS: COLLECTION METHOD CLEAN CATCH
[2017-05-30 08:27] LABS: PH 5 (5-8); URINE APPEARANCE Cloudy; URINE BILIRUBIN Negative (NEGATIVE); URINE BLOOD Negative (NEGATIVE); URINE COLOR Yellow; URINE GLUCOSE Negative (NEGATIVE); URINE KETONE Negative (NEGATIVE); URINE LEUKOCYTE ESTERASE Negative (NEGATIVE); URINE NITRATE Negative (NEGATIVE); URINE PROTEIN(semi-quant) 2+ (NEGATIVE); URINE UROBILINOGEN >=4.0 mg/dL (NEGATIVE)
[2017-05-30 08:28] LABS: MUCOUS Present /lpf; URINE BACTERIA None Seen /hpf; URINE RBC 0-2 /hpf
[2017-05-30 09:03] VITALS: BP 144/77; PULSE 74
== END 2017-05-30 09:04 | disposition home or self-care (01) ==
LOC: COL.ER 06:36
PROVIDERS: Physician Assistant
DX: M54.32 Sciatica, left side (principal); I10 Essential (primary) hypertension; E11.42 Type 2 diabetes mellitus with diabetic polyneuropathy; I25.10 Atherosclerotic heart disease of native coronary artery without angina pectoris; E78.5 Hyperlipidemia, unspecified; E66.01 Morbid (severe) obesity due to excess calories; Z79.4 Long term (current) use of insulin; Z79.82 Long term (current) use of aspirin
CPT/HCPCS: J2270; J2360; J2550

== ENCOUNTER → 2017-06-11 | Outpatient (CLI) | payer BC, MEDICARE ==
[~2017-06-11] VITALS: Ht 175.3 cm; Wt 152.2 kg
[~2017-06-11] MED LIST changes: +FLEXERIL 1010 MG/TAB PO
[2017-06-11 13:49] VITALS: BP 160/80; PULSE 80
== END ==
LOC: LIGHT 09:13
DX: E11.9 Type 2 diabetes mellitus without complications (principal); I10 Essential (primary) hypertension; E66.01 Morbid (severe) obesity due to excess calories; Z68.42 Body mass index [BMI] 45.0-49.9, adult; Z71.3 Dietary counseling and surveillance; E78.5 Hyperlipidemia, unspecified; Z79.4 Long term (current) use of insulin
CPT/HCPCS: G0463

== ENCOUNTER 2017-06-26 15:46 | Outpatient (RCR) | payer BC, MEDICARE | END 2017-06-28 | disposition home or self-care (01) | LOC: COL.CR | DX: Z48.812 Encounter for surgical aftercare following surgery on the circulatory system (principal); Z95.5 Presence of coronary angioplasty implant and graft; I25.10 Atherosclerotic heart disease of native coronary artery without angina pectoris ==

== ENCOUNTER 2017-06-29 15:25 | Outpatient (RCR) | payer BC | END 2017-09-27 | disposition home or self-care (01) | LOC: COL.CR | DX: Z48.812 Encounter for surgical aftercare following surgery on the circulatory system (principal); Z95.5 Presence of coronary angioplasty implant and graft; I25.10 Atherosclerotic heart disease of native coronary artery without angina pectoris ==

== ENCOUNTER → 2017-07-16 | Outpatient (CLI) | payer BC, MEDICARE ==
[~2017-07-16] VITALS: Ht 175.3 cm; Wt 154.7 kg
[2017-07-16 14:34] VITALS: BP 126/60; PULSE 76
== END ==
LOC: LIGHT 13:15
DX: E11.9 Type 2 diabetes mellitus without complications (principal); Z79.4 Long term (current) use of insulin; I10 Essential (primary) hypertension; E66.01 Morbid (severe) obesity due to excess calories; Z68.43 Body mass index [BMI] 50.0-59.9, adult; Z71.3 Dietary counseling and surveillance; E78.5 Hyperlipidemia, unspecified
CPT/HCPCS: G0463

== ENCOUNTER → 2017-08-05 | Outpatient (CLI) | payer BC, MEDICARE | LOC: LIGHT 09:58 | DX: Z01.818 Encounter for other preprocedural examination (principal) ==

== ENCOUNTER → 2017-08-17 | Outpatient (CLI) | payer BC, MEDICARE ==
[~2017-08-17] VITALS: Ht 175.3 cm; Wt 157.4 kg
[2017-08-17 13:46] VITALS: BP 105/50; PULSE 68
== END ==
LOC: LIGHT 11:11
DX: E11.9 Type 2 diabetes mellitus without complications (principal); Z79.4 Long term (current) use of insulin; I10 Essential (primary) hypertension; E66.01 Morbid (severe) obesity due to excess calories; Z68.43 Body mass index [BMI] 50.0-59.9, adult; Z71.3 Dietary counseling and surveillance; E78.5 Hyperlipidemia, unspecified
CPT/HCPCS: G0463

== ENCOUNTER 2017-09-01 06:37 | Day surgery (SDC) | payer BC, MEDICARE ==
[~2017-09-01] VITALS: Ht 175.3 cm; Wt 156.7 kg
[2017-09-01 06:50] VITALS: BP 155/91; PULSE 71; TEMP 98.4
[2017-09-01 08:08] VITALS: BP 155/87; PULSE 77; TEMP 98.3
[2017-09-01 08:23] VITALS: BP 137/92; PULSE 68
[2017-09-01 08:38] VITALS: BP 146/77; PULSE 63
[2017-09-01 08:53] VITALS: BP 126/65; PULSE 61
== END 2017-09-01 09:13 | disposition home or self-care (01) ==
LOC: SDCO 06:37
DX: K21.0 Gastro-esophageal reflux disease with esophagitis (principal); Z01.818 Encounter for other preprocedural examination; K31.89 Other diseases of stomach and duodenum; E11.40 Type 2 diabetes mellitus with diabetic neuropathy, unspecified; Z79.4 Long term (current) use of insulin; G47.00 Insomnia, unspecified; I25.10 Atherosclerotic heart disease of native coronary artery without angina pectoris; I10 Essential (primary) hypertension; I27.20 Pulmonary hypertension, unspecified; Z95.1 Presence of aortocoronary bypass graft; Z95.5 Presence of coronary angioplasty implant and graft; Z89.512 Acquired absence of left leg below knee; Z89.511 Acquired absence of right leg below knee; E66.01 Morbid (severe) obesity due to excess calories; Z68.42 Body mass index [BMI] 45.0-49.9, adult; Z90.49 Acquired absence of other specified parts of digestive tract; Z79.82 Long term (current) use of aspirin; Z88.8 Allergy status to other drugs, medicaments and biological substances
CPT/HCPCS: OP; J2250; J3010; J7042

== ENCOUNTER → 2017-09-08 | Outpatient (CLI) | payer BC, MEDICARE | LOC: COL.RAD 07:51 | DX: K21.9 Gastro-esophageal reflux disease without esophagitis (principal); K31.89 Other diseases of stomach and duodenum; E11.8 Type 2 diabetes mellitus with unspecified complications; E66.01 Morbid (severe) obesity due to excess calories | CPT/HCPCS: A9541 ==

== ENCOUNTER → 2017-09-17 | Outpatient (CLI) | payer BC, MEDICARE | LOC: BHSO 08:34 | DX: Z01.818 Encounter for other preprocedural examination (principal) ==

== ENCOUNTER → 2017-09-17 | Outpatient (CLI) | payer BC, MEDICARE ==
[~2017-09-17] VITALS: Ht 175.3 cm; Wt 158.1 kg
[2017-09-17 13:49] VITALS: BP 130/50; PULSE 72
== END ==
LOC: LIGHT 13:35
DX: E11.9 Type 2 diabetes mellitus without complications (principal); I10 Essential (primary) hypertension; E66.01 Morbid (severe) obesity due to excess calories; Z68.43 Body mass index [BMI] 50.0-59.9, adult; Z71.3 Dietary counseling and surveillance; E78.5 Hyperlipidemia, unspecified
CPT/HCPCS: G0463

== ENCOUNTER → 2017-10-06 | Outpatient (CLI) | payer BC, MEDICARE | LOC: LIGHT 10:04 | DX: Z01.818 Encounter for other preprocedural examination (principal) ==

== ENCOUNTER 2017-10-07 08:30 | Inpatient (IN) | payer BC, MEDICARE ==
[~2017-10-07] VITALS: Ht 175.3 cm; Wt 151.4 kg
[2017-10-14] VITALS (9 sets, daily range): BP systolic 98–136; BP diastolic 48–73; PULSE 55–80; TEMP 98.1–98.4
[2017-10-15 03:55] VITALS: BP 119/62; PULSE 66; TEMP 97.4
[2017-10-15 08:12] VITALS: BP 126/60; PULSE 67; TEMP 97.9
[2017-10-15 11:00] VITALS: BP 111/58; PULSE 65; TEMP 97.7
[2017-10-15 15:36] VITALS: BP 107/59; PULSE 60; TEMP 97.7
[2017-10-15] MEDS ORDERED: TOUJEO300 U/ML SQ (18:45)
== END 2017-10-15 19:40 | disposition home or self-care (01) | DRG 620 ==
LOC: SURG 10-14 10:19 → INPTSU 10-14 10:19 → SURG 10-14 12:30
PROVIDERS: Surgery
PROC: 0DB64Z3 Excision of Stomach, Percutaneous Endoscopic Approach, Vertical (ICD-10-PCS; principal; 2017-10-14 12:30)
DX: E66.01 Morbid (severe) obesity due to excess calories (principal); F31.81 Bipolar II disorder; Z68.42 Body mass index [BMI] 45.0-49.9, adult; I25.10 Atherosclerotic heart disease of native coronary artery without angina pectoris; I10 Essential (primary) hypertension; I27.20 Pulmonary hypertension, unspecified; E11.42 Type 2 diabetes mellitus with diabetic polyneuropathy; Z79.4 Long term (current) use of insulin; Z95.1 Presence of aortocoronary bypass graft; Z89.512 Acquired absence of left leg below knee; Z89.511 Acquired absence of right leg below knee
CPT/HCPCS: A9284; J1100; J1815; J2405; J2704; J3010; J7030

== ENCOUNTER → 2017-10-08 | Outpatient (CLI) | payer BC, MEDICARE | LOC: LIGHT 10:36 | DX: Z01.818 Encounter for other preprocedural examination (principal); E66.01 Morbid (severe) obesity due to excess calories ==

== ENCOUNTER → 2017-10-26 | Outpatient (CLI) | payer BC, MEDICARE ==
[~2017-10-26] VITALS: Ht 175.3 cm; Wt 144.9 kg
[2017-10-26 13:38] VITALS: BP 114/70; PULSE 68
== END ==
LOC: LIGHT 13:30
DX: E11.9 Type 2 diabetes mellitus without complications (principal); Z79.4 Long term (current) use of insulin; I10 Essential (primary) hypertension; E66.01 Morbid (severe) obesity due to excess calories; Z68.42 Body mass index [BMI] 45.0-49.9, adult; Z71.3 Dietary counseling and surveillance; Z98.84 Bariatric surgery status

== ENCOUNTER → 2017-11-06 | Outpatient (CLI) | payer BC, MEDICARE | LOC: BHSO 10:56 | DX: F33.42 Major depressive disorder, recurrent, in full remission (principal) | CPT/HCPCS: G0463 ==

== ENCOUNTER → 2017-11-23 | Outpatient (CLI) | payer BC, MEDICARE ==
[~2017-11-23] VITALS: Ht 175.3 cm; Wt 141.1 kg
[2017-11-23 15:39] VITALS: BP 118/64; PULSE 65
== END ==
LOC: LIGHT 14:10
DX: E11.9 Type 2 diabetes mellitus without complications (principal); I10 Essential (primary) hypertension; E66.01 Morbid (severe) obesity due to excess calories; Z68.42 Body mass index [BMI] 45.0-49.9, adult; Z09 Encounter for follow-up examination after completed treatment for conditions other than malignant neoplasm

== ENCOUNTER → 2018-01-04 | Outpatient (CLI) | payer BC, MEDICARE ==
[~2018-01-04] VITALS: Ht 175.3 cm; Wt 137.4 kg
[2018-01-04 13:13] VITALS: BP 110/56; PULSE 76
== END ==
LOC: LIGHT 11:48
DX: E11.9 Type 2 diabetes mellitus without complications (principal); I10 Essential (primary) hypertension; Z98.84 Bariatric surgery status; E66.01 Morbid (severe) obesity due to excess calories; Z68.41 Body mass index [BMI] 40.0-44.9, adult; Z71.3 Dietary counseling and surveillance

== ENCOUNTER → 2018-03-29 | Outpatient (CLI) | payer BC, MEDICARE ==
[~2018-03-29] VITALS: Ht 175.3 cm; Wt 132.4 kg
[2018-03-29 13:13] VITALS: BP 108/54; PULSE 64
== END ==
LOC: LIGHT 13:02
DX: E11.65 Type 2 diabetes mellitus with hyperglycemia (principal); I10 Essential (primary) hypertension; Z98.84 Bariatric surgery status; E66.01 Morbid (severe) obesity due to excess calories; Z71.3 Dietary counseling and surveillance
CPT/HCPCS: G0463

== ENCOUNTER → 2018-04-15 | Outpatient (CLI) | payer BC, MEDICARE ==
[~2018-04-15] VITALS: Ht 175.3 cm; Wt 132.7 kg
[~2018-04-15] MED LIST changes: +FASTIN30 MG PO
[2018-04-15 11:14] VITALS: BP 112/70; PULSE 64
== END ==
LOC: LIGHT 10:19
DX: E11.65 Type 2 diabetes mellitus with hyperglycemia (principal); I10 Essential (primary) hypertension; E66.01 Morbid (severe) obesity due to excess calories; Z68.41 Body mass index [BMI] 40.0-44.9, adult; Z71.3 Dietary counseling and surveillance
CPT/HCPCS: G0463

== ENCOUNTER → 2018-05-17 | Outpatient (CLI) | payer BC, MEDICARE | LOC: BHSO 09:24 | DX: F33.42 Major depressive disorder, recurrent, in full remission (principal) | CPT/HCPCS: G0463 ==

== ENCOUNTER → 2018-05-20 | Outpatient (CLI) | payer BC, MEDICARE ==
[~2018-05-20] VITALS: Ht 175.3 cm; Wt 129.7 kg
[2018-05-20 15:11] VITALS: BP 134/70; PULSE 60
== END ==
LOC: LIGHT 11:43
DX: E11.65 Type 2 diabetes mellitus with hyperglycemia (principal); I10 Essential (primary) hypertension; Z98.84 Bariatric surgery status; E66.01 Morbid (severe) obesity due to excess calories; Z68.41 Body mass index [BMI] 40.0-44.9, adult; Z71.3 Dietary counseling and surveillance
CPT/HCPCS: G0463

== ENCOUNTER → 2018-06-24 | Outpatient (CLI) | payer BC, MEDICARE ==
[~2018-06-24] VITALS: Ht 175.3 cm; Wt 130.6 kg
[2018-06-24 14:56] VITALS: BP 126/74; PULSE 76
== END ==
LOC: LIGHT 11:22
DX: E11.65 Type 2 diabetes mellitus with hyperglycemia (principal); I10 Essential (primary) hypertension; Z98.84 Bariatric surgery status; E66.01 Morbid (severe) obesity due to excess calories; Z68.41 Body mass index [BMI] 40.0-44.9, adult; Z71.3 Dietary counseling and surveillance
CPT/HCPCS: G0463

== ENCOUNTER → 2018-08-26 | Outpatient (CLI) | payer BC, MEDICARE ==
[~2018-08-26] VITALS: Ht 175.3 cm; Wt 130.9 kg
[~2018-08-26] MED LIST changes: +TOPAMAX50 MG PO
[2018-08-26 11:04] VITALS: BP 114/70; PULSE 68
== END ==
LOC: LIGHT 07-22 14:43
DX: E11.65 Type 2 diabetes mellitus with hyperglycemia (principal); I10 Essential (primary) hypertension; Z98.84 Bariatric surgery status; E66.01 Morbid (severe) obesity due to excess calories; Z68.41 Body mass index [BMI] 40.0-44.9, adult; Z71.3 Dietary counseling and surveillance

== ENCOUNTER → 2018-09-16 | Outpatient (CLI) | payer BC, MEDICARE ==
[~2018-09-16] VITALS: Ht 175.3 cm; Wt 130.9 kg
[~2018-09-16] MED LIST changes: +ADIPEX-P37.5 MG PO; -FASTIN30 MG PO; +TOPAMAX 25MG25 M1 PO; -TOPAMAX50 MG PO
[2018-09-16 08:34] VITALS: BP 100/66; PULSE 67
== END ==
LOC: LIGHT 08:03
DX: E11.65 Type 2 diabetes mellitus with hyperglycemia (principal); I10 Essential (primary) hypertension; Z98.84 Bariatric surgery status; E66.01 Morbid (severe) obesity due to excess calories; Z68.41 Body mass index [BMI] 40.0-44.9, adult; Z71.3 Dietary counseling and surveillance
CPT/HCPCS: G0463

== ENCOUNTER → 2018-09-27 | Outpatient (CLI) | payer BC, MEDICARE | LOC: BHSO 08:41 | DX: F33.1 Major depressive disorder, recurrent, moderate (principal) ==

== ENCOUNTER → 2018-10-07 | Outpatient (CLI) | payer BC, MEDICARE | LOC: BHSO 08:47 | DX: F33.0 Major depressive disorder, recurrent, mild (principal) ==

== ENCOUNTER → 2018-10-27 | Outpatient (CLI) | payer BC, MEDICARE | LOC: BHSO 08:33 | DX: F41.1 Generalized anxiety disorder (principal) ==

== ENCOUNTER → 2018-10-28 | Outpatient (CLI) | payer BC, MEDICARE ==
[~2018-10-28] VITALS: Ht 175.3 cm; Wt 131.1 kg
[2018-10-28 16:21] VITALS: BP 126/60; PULSE 72
== END ==
LOC: LIGHT 15:00
DX: E11.65 Type 2 diabetes mellitus with hyperglycemia (principal); I10 Essential (primary) hypertension; Z98.84 Bariatric surgery status; E66.01 Morbid (severe) obesity due to excess calories; Z68.41 Body mass index [BMI] 40.0-44.9, adult; Z71.3 Dietary counseling and surveillance
CPT/HCPCS: G0463

== ENCOUNTER → 2018-11-01 | Outpatient (CLI) | payer BC, MEDICARE | LOC: BHSO 09:11 | DX: F33.42 Major depressive disorder, recurrent, in full remission (principal) | CPT/HCPCS: G0463 ==

== ENCOUNTER → 2018-11-11 | Outpatient (CLI) | payer BC, MEDICARE | LOC: ZCOL.LAB 11:29 | DX: T87.89 Other complications of amputation stump (principal); L02.611 Cutaneous abscess of right foot ==

== ENCOUNTER → 2018-11-16 | Outpatient (CLI) | payer BC, MEDICARE | LOC: BHSO 08:38 | DX: F33.1 Major depressive disorder, recurrent, moderate (principal) ==

== ENCOUNTER → 2018-11-25 | Outpatient (CLI) | payer BC, MEDICARE | LOC: BHSO 09:46 | DX: F41.1 Generalized anxiety disorder (principal) ==

== ENCOUNTER → 2018-12-01 | Outpatient (CLI) | payer BC, MEDICARE | LOC: ZCOL.LAB 10:15 | DX: Z01.812 Encounter for preprocedural laboratory examination (principal); Z86.14 Personal history of Methicillin resistant Staphylococcus aureus infection ==

== ENCOUNTER → 2018-12-14 | Outpatient (CLI) | payer BC, MEDICARE ==
[~2018-12-14] MED LIST changes: -TOPAMAX 25MG25 M1 PO; +TOPAMAX50 MG
== END ==
LOC: BHSO 08:54
DX: F41.1 Generalized anxiety disorder (principal)

== ENCOUNTER → 2019-01-13 | Outpatient (CLI) | payer BC, MEDICARE ==
[~2019-01-13] MED LIST changes: +ALLEGRA 180MG180 MG PO; +ISOSORBIDE MON120 MG PO; -TOPAMAX50 MG; +TOPAMAX50 MG PO; +WELLBUTRIN XL300 M1 PO
[2019-01-13 14:54] VITALS: BP 96/54; PULSE 60
== END ==
LOC: LIGHT 10:57
DX: E11.65 Type 2 diabetes mellitus with hyperglycemia (principal); I10 Essential (primary) hypertension; Z98.84 Bariatric surgery status; E66.01 Morbid (severe) obesity due to excess calories; Z71.3 Dietary counseling and surveillance
CPT/HCPCS: G0463

== ENCOUNTER 2019-01-25 16:00 | Inpatient (IN) | payer BC, MEDICARE ==
[~2019-01-25] VITALS: Ht 175.3 cm; Wt 128.8 kg
[2019-01-25 18:04] VITALS: BP 119/62; PULSE 66; TEMP 98.3
[2019-01-25 18:10] LABS: BASO % 0.3 % (0.0-2.0); EOS # 0.2 (0.0-0.7); EOS % 1.5 % (0-4.0); GRAN # 7.9 (1.4-6.5); GRAN % 68.1 % (42.2-75.2); HEMATOCRIT 42.8 % (42.0-52.0); HEMOGLOBIN 13.8 g/dl (13.5-18.0); LYMPH # 2.5 (1.2-3.4); LYMPH % 21.2 % (20.0-51.0); MEAN CELL VOLUME 84 fl (80.0-100.0); MEAN CORPUSCULAR HEMOGLOBIN 27 pg (27.0-31.0); MEAN CORPUSCULAR HGB CONC 32 g/dl (33.0-37.0); MEAN PLATELET VOLUME 9.3 fl (7.4-10.4); MONO % 8.6 % (1.7-9.3); PLATELET COUNT 216 K/mm3 (130-400); RED BLOOD COUNT 5.07 M/mm3 (4.20-5.60); REDCELL DISTRIBUTION WIDTH-CV 16.1 % (11.5-14.5)
[2019-01-25 18:52] LABS: INR 0.9 (0.8-3.0); PROTHROMBIN TIME 10.2 SECONDS (9.7-12.8)
[2019-01-25 18:54] LABS: ALBUMIN 4.1 gm/dL (3.5-5.0); BILIRUBIN,TOTAL 0.3 mg/dL (0.0-1.0); CALCIUM 9.2 mg/dL (8.4-10.2); CREATININE, serum 1.07 (0.66-1.25); TOTAL PROTEIN 7.5 gm/dL (6.4-8.2)
--- NOTE | 2019-01-25 19:00 | NUR ---
REPORT GIVEN TO PAULINE SHAFFER.
--- NOTE | 2019-01-25 19:23 | NUR ---
Vancomycin Initial Dosing Pharmacy Note Ordering provider: Juan Alberto Womack MD Indication/duration: Wound dehiscence with malordorous drainage, 7 days Relevant comorbidities: Right BKA 3 weeks ago, h/o MRSA skin wound infections LABS: WBC 11.6, SCr 1.07, CrCl~99, GFR 73 Recommendation: Will give loading dose of Vancomycin 2 gm IV x1, then Vancomcyin 1.5 gm IV q8h. Pharmacy will continue to monitor and order Vancomycin trough on 01/27/19. Loading dose: 2 grams Maintenance dose: 1.5 grams every 8 hours Trough goal: 15-20 ug/mL
[2019-01-25 20:00] VITALS: BP 126/65; PULSE 79; TEMP 98.5
--- NOTE | 2019-01-25 22:38 | NUR ---
PATIENT DOING WELL TONIGHT. HAS MILD PAIN, WAS GIVEN NORCO PO PRN. DRESSING TO R BKA WOUND CHANGED. WOUND CULTURE SWABBED AND SENT TO LAB. SEE ASSESSMENT. STARTED ON CONTACT PRECAUTIONS FOR HX OF MRSA, CULTURES HAVE NOT COME BACK YET. PATIENT TEACHING REGARDNG BEING NPO AT MIDNIGHT. NO FURTHER NEEDS AT THIS TIME. WILL CONTINUE TO MONITOR.
[2019-01-25 23:46] VITALS: BP 119/57; PULSE 79; TEMP 97.8
[2019-01-26] VITALS (11 sets, daily range): BP systolic 95–130; BP diastolic 53–72; PULSE 66–78; TEMP 97.7–98.5
[2019-01-26 03:50] LABS: COLLECTION METHOD CLEAN CATCH
[2019-01-26 03:55] LABS: PH 6 (5-8); SQUAMOUS EPITHELIAL None Seen /hpf; URINE APPEARANCE Clear; URINE BACTERIA None Seen /hpf; URINE BILIRUBIN Negative (NEGATIVE); URINE BLOOD Negative (NEGATIVE); URINE COLOR Yellow; URINE GLUCOSE 3+ (NEGATIVE); URINE KETONE Negative (NEGATIVE); URINE LEUKOCYTE ESTERASE Negative (NEGATIVE); URINE NITRATE Negative (NEGATIVE); URINE PROTEIN(semi-quant) Negative (NEGATIVE); URINE RBC 0-2 /hpf; URINE UROBILINOGEN >=4.0 mg/dL (NEGATIVE)
[2019-01-26 06:20] LABS: BASO % 0.3 % (0.0-2.0); EOS # 0.1 (0.0-0.7); EOS % 0.5 % (0-4.0); GRAN # 7.5 (1.4-6.5); GRAN % 71.7 % (42.2-75.2); HEMATOCRIT 40.7 % (42.0-52.0); HEMOGLOBIN 13.2 g/dl (13.5-18.0); LYMPH # 1.6 (1.2-3.4); LYMPH % 15.6 % (20.0-51.0); MEAN CELL VOLUME 84 fl (80.0-100.0); MEAN CORPUSCULAR HEMOGLOBIN 27 pg (27.0-31.0); MEAN CORPUSCULAR HGB CONC 32 g/dl (33.0-37.0); MEAN PLATELET VOLUME 9.3 fl (7.4-10.4); MONO # 1.2 (0.1-0.6); MONO % 11.5 % (1.7-9.3); PLATELET COUNT 191 K/mm3 (130-400); RED BLOOD COUNT 4.86 M/mm3 (4.20-5.60); REDCELL DISTRIBUTION WIDTH-CV 15.9 % (11.5-14.5)
[2019-01-26 06:30] LABS: CALCIUM 8.9 mg/dL (8.4-10.2); CREATININE, serum 0.88 (0.66-1.25); POTASSIUM 3.9 mmol/L (3.4-5.0)
--- NOTE | 2019-01-26 10:03 | NUR ---
SILVERIO met with the patient to discuss a discharge plan. The patient lives in [place] with his , Deion and their son. The patient has a wheelchair, knee scooter and CPAP. Patient receives CPAP supplies from [facility]. The patient's PCP is Dr. Yun and patient receives medications from [facility] with no difficulties. The patient does not have advanced directives in the EMR but reports he has them completed and designate Deion and patient's sister, Monserrat Mendez. The patient plans to return home upon discharge with Deion providing transportation. There are no additional needs at this time.
--- NOTE | 2019-01-26 13:00 | NUR ---
Changed patients dressing to right stump. There was brown/pink drainage to gauze and bedpad. Erlin to incision intact, some reddness to center of incision to right BKA. Removed gauze and ABD pad. Placed a pack of 4x4's to incision with a gauze roll to keep in place. Patient has been doing well this am. No other changes at this time. Call light within reach.
--- NOTE | 2019-01-26 13:40 | NUR ---
Patient is going to surgery at this time. Consent on the chart.
--- NOTE | 2019-01-26 17:00 | NUR ---
Patient is back from surgery. Seems to be doing ok. He is having increased pain to right BKA. Dressing is C/D/I. Patient denies nausea. Discussed pain medications ordered and how often he can have them. No other changes at this time. Call light within reach.
--- NOTE | 2019-01-26 20:11 | NUR ---
PT RESTING IN BED. A&O. FRIEND AT BEDSIDE. O2 1L NC. FRIEND BROUGHT PTS CPAP FROM HOME. PT DENEIS PAIN AT THIS TIME.
--- NOTE | 2019-01-26 23:11 | NUR ---
BLOODY DRG NOTED THROUGH RLE DRESSING. REINFORCED WITH SONIA MOORE AND MARIA.
[2019-01-27] VITALS (11 sets, daily range): BP systolic 96–132; BP diastolic 52–65; PULSE 63–79; TEMP 97.7–98.6
--- NOTE | 2019-01-27 | NUR ---
PT MADE NPO AT MIDNIGHT.
[2019-01-27 07:10] LABS: BASO % 0.2 % (0.0-2.0); EOS # 0.1 (0.0-0.7); EOS % 1.7 % (0-4.0); GRAN # 5.4 (1.4-6.5); GRAN % 65.1 % (42.2-75.2); HEMOGLOBIN 11.5 g/dl (13.5-18.0); LYMPH # 1.8 (1.2-3.4); LYMPH % 21.6 % (20.0-51.0); MEAN CELL VOLUME 85 fl (80.0-100.0); MEAN CORPUSCULAR HEMOGLOBIN 27 pg (27.0-31.0); MEAN CORPUSCULAR HGB CONC 32 g/dl (33.0-37.0); MEAN PLATELET VOLUME 9.5 fl (7.4-10.4); MONO # 0.9 (0.1-0.6); MONO % 10.8 % (1.7-9.3); PLATELET COUNT 183 K/mm3 (130-400); RED BLOOD COUNT 4.26 M/mm3 (4.20-5.60); REDCELL DISTRIBUTION WIDTH-CV 16.5 % (11.5-14.5)
[2019-01-27 07:13] LABS: HEMATOCRIT 36.3 % (42.0-52.0)
[2019-01-27 07:18] LABS: CALCIUM 8.4 mg/dL (8.4-10.2); CREATININE, serum 0.98 (0.66-1.25)
--- NOTE | 2019-01-27 07:21 | NUR ---
PT USED CPAP ALL NIGHT. SEE MAR FOR PAIN MED GIVEN. RT STUMP DRSG SEEPING ALITTLE MORE THIS AM. SHIFT REPORT GIVEN TO ANTONIA EVANS.
--- NOTE | 2019-01-27 07:22 | NUR ---
TOOK SIPS H20 WITH MEDS IN THE NIGHT.
--- NOTE | 2019-01-27 10:54 | NUR ---
Initial visit; David thanked Design Assembler for looking in on him and offering encouragement and God's blessings. Design Assembler will keep patient in her prayers.
--- NOTE | 2019-01-27 11:00 | NUR ---
Changed to disposable pad under patients right BKA. He continues to have a lot of drainage from incision. Dressing intact. Did not reinforce dressing at this time because patient stated the gauze was getting heavy. Patient is alert and oriented. Patient has been controlled with norco. Patient now has a PICC line. No other changes at this time. Call light within rech.
--- NOTE | 2019-01-27 14:15 | NUR ---
Patient is going down for surgery. Chart with patient. Consent on chart.
--- NOTE | 2019-01-27 18:44 | NUR ---
Patient sitting up in bed. Call light within reach. He has no complaints. Pain 4 on 0-10 scale. and son visiting. Dinner tray reciieved at 5:40.
--- NOTE | 2019-01-27 19:00 | NUR ---
Patient has been doing ok since surgery. Having increased pain. He stated his right BKA site is burning. He ate supper and tolerated it without nausea. No other changes at this time. Call light within reach.
--- NOTE | 2019-01-27 20:00 | NUR ---
PATIENT IN BED, HAS CPAP ON. IS ALERT AND ORIENTED X4. REPORTS NORCO HAS HELPED PAIN. RT PICC WITH IVF INFUSING WITHOUT REDNESS OR SWELLING. RT STUMP TERESA D/I.
[2019-01-28] VITALS (7 sets, daily range): BP systolic 104–116; BP diastolic 54–65; PULSE 63–67; TEMP 97.4–98.1
--- NOTE | 2019-01-28 00:04 | NUR ---
NORCO GIVEN FOR RT STUMP PAIN 11/27.
--- NOTE | 2019-01-28 01:40 | NUR ---
PATIENT REPORTS SEVERE PAIN TO RT STUMP/KNEE AREA RATING 8/10. MEDICATED WITH OXYCODONE 10MG PO NOW.
--- NOTE | 2019-01-28 04:15 | NUR ---
IV VANCO INFUSING WITHOUT PROBLEM, MEDICATED WITH NORCO FOR PAIN.
--- NOTE | 2019-01-28 05:42 | NUR ---
PT REPORTS BETTER PAIN RELIEF WITH OXYCODONE. MEDICATED AT THIS TIME WITH 10MG PO.
[2019-01-28 06:36] LABS: BASO % 0.3 % (0.0-2.0); EOS # 0.2 (0.0-0.7); EOS % 2.2 % (0-4.0); GRAN # 4.6 (1.4-6.5); GRAN % 60.4 % (42.2-75.2); HEMOGLOBIN 10.2 g/dl (13.5-18.0); LYMPH % 26.1 % (20.0-51.0); MEAN CELL VOLUME 88 fl (80.0-100.0); MEAN CORPUSCULAR HEMOGLOBIN 27 pg (27.0-31.0); MEAN CORPUSCULAR HGB CONC 31 g/dl (33.0-37.0); MEAN PLATELET VOLUME 9.8 fl (7.4-10.4); MONO # 0.8 (0.1-0.6); MONO % 10.5 % (1.7-9.3); PLATELET COUNT 174 K/mm3 (130-400); RED BLOOD COUNT 3.76 M/mm3 (4.20-5.60); REDCELL DISTRIBUTION WIDTH-CV 16.6 % (11.5-14.5)
[2019-01-28 06:52] LABS: CREATININE, serum 0.89 (0.66-1.25); POTASSIUM 3.9 mmol/L (3.4-5.0)
--- NOTE | 2019-01-28 07:00 | NUR ---
Report received from PAULINE Ahn. Pt in bed resting, feelign well, deneis needs, current pain is 4/10. Will continue to monitor.
--- NOTE | 2019-01-28 08:31 | NUR ---
Assessment charted. Pt feeling well. R BKA elevated on pillows, large occlusive dressing in place is CDI. L popliteal pulse felt. PICC to JASS. Pt eating breakfast, tolerating PO well. Pain remains 4/10 to RLE. Denies needs, will continue to monitor.
--- NOTE | 2019-01-28 17:43 | NUR ---
Pt resting in bed, bed bath provided. Feeling well, spouse at bedside. PRN pain meds provided over shift as needed. RLE elevated on pillows. No drainage noted on dressing. Denies needs, will continue to monitor and give bedside shift report to nightshift nurse who will resume care.
--- NOTE | 2019-01-28 18:28 | NUR ---
Pt sitting comfortably in bed. His is visiting. Call light with in reach. He has no complaints. Pain 4 on a 0-10 scale. Just recieved a salad for dinner.
--- NOTE | 2019-01-28 22:35 | NUR ---
Report received from PAULINE Cisneros. Patient resting in bed. Assessment complete. Lungs CTA. Wound on right leg wrapped. Patient denies pain at this time. Blood sugar was 170, so both levemir and novolog given. Patient denies any further needs at this time. Call light within reach.
--- NOTE | 2019-01-28 22:40 | NUR ---
Patient requests PRN roxicodone at this time.
[2019-01-29 00:09] VITALS: BP 121/60; PULSE 68; TEMP 98
[2019-01-29 04:14] VITALS: BP 107/60; PULSE 63; TEMP 97.7
--- NOTE | 2019-01-29 06:03 | NUR ---
Patient had uneventful night. Resting in bed. IV antibiotics infusing. Rosa given PRn for pain. No further needs at this time. Call light within reach.
[2019-01-29 06:23] LABS: BASO % 0.4 % (0.0-2.0); EOS # 0.2 (0.0-0.7); EOS % 2.7 % (0-4.0); GRAN # 3.3 (1.4-6.5); GRAN % 57.4 % (42.2-75.2); LYMPH # 1.7 (1.2-3.4); LYMPH % 29.3 % (20.0-51.0); MEAN CELL VOLUME 88 fl (80.0-100.0); MEAN CORPUSCULAR HGB CONC 30 g/dl (33.0-37.0); MEAN PLATELET VOLUME 9.4 fl (7.4-10.4); MONO # 0.6 (0.1-0.6); MONO % 9.7 % (1.7-9.3); PLATELET COUNT 146 K/mm3 (130-400); RED BLOOD COUNT 3.07 M/mm3 (4.20-5.60); REDCELL DISTRIBUTION WIDTH-CV 16.4 % (11.5-14.5)
[2019-01-29 06:36] LABS: HEMATOCRIT 26.9 % (42.0-52.0); HEMOGLOBIN 8.1 g/dl (13.5-18.0); MEAN CORPUSCULAR HEMOGLOBIN 26 pg (27.0-31.0)
--- NOTE | 2019-01-29 07:08 | NUR ---
Report given to PAULINE Dumont
[2019-01-29 07:22] VITALS: BP 112/61; PULSE 59; TEMP 97.9
[2019-01-29 07:27] LABS: CALCIUM 8.3 mg/dL (8.4-10.2); CREATININE, serum 0.83 (0.66-1.25); POTASSIUM 3.9 mmol/L (3.4-5.0)
--- NOTE | 2019-01-29 08:30 | NUR ---
Patient in bed resting. Alert and oriented x 3. Shift assessment complete. Right BKA with dionicio wrap, CDI. Denies pain at this time. Patient eating breakfast. Family at bedside. PICC to right upper arm without complications. Denies further needs at this time.
[2019-01-29 12:38] VITALS: BP 119/65; PULSE 67; TEMP 97.8
[2019-01-29 16:31] VITALS: BP 123/59; PULSE 62; TEMP 98.2
--- NOTE | 2019-01-29 19:07 | NUR ---
REPORT GIVEN TO PAULINE JOHNSON.
[2019-01-29 19:36] VITALS: BP 130/70; PULSE 70; TEMP 98
--- NOTE | 2019-01-29 21:10 | NUR ---
Assessment completed. Rating pain 7/10 to right knee area, describes as throbbing. Administered pain medication as ordered. Dressing to right knee CDI. Patient denies further needs at this time.
--- NOTE | 2019-01-29 22:31 | NUR ---
Rating pain 4/10 and feels the pain medication helped. Discussed with the patient NPO at NC for proedure in the morning. Patient verbalizes understanding and denies further needs at this time.
[2019-01-30] VITALS (13 sets, daily range): BP systolic 106–141; BP diastolic 56–71; PULSE 60–73; TEMP 97.3–98.2
--- NOTE | 2019-01-30 00:26 | NUR ---
Rating pain 5/10 in right knee, describes as a constant ache. Administered pain medication as ordered. Reviewed with patient NPO status for procedure. Patient verbalizes understanding to all and denies further needs at this time.
--- NOTE | 2019-01-30 03:10 | NUR ---
Resting in bed with eyes closed. Respirations even and unlabored. No signs or symptoms of discomfort noted.
--- NOTE | 2019-01-30 04:48 | NUR ---
Preop fluids connected as ordered. Infuse without difficulty. Bedbath provided, new gown applied, and new bed linens. Patient tolerates without difficulty.
--- NOTE | 2019-01-30 06:00 | NUR ---
Resting in bed. Patient NPO-2 cups of hot water held this AM
[2019-01-30 06:17] LABS: BASO % 0.3 % (0.0-2.0); EOS # 0.2 (0.0-0.7); EOS % 2.8 % (0-4.0); GRAN # 3.7 (1.4-6.5); GRAN % 54.3 % (42.2-75.2); LYMPH # 2.1 (1.2-3.4); LYMPH % 31.4 % (20.0-51.0); MEAN CELL VOLUME 85 fl (80.0-100.0); MEAN CORPUSCULAR HGB CONC 31 g/dl (33.0-37.0); MONO # 0.7 (0.1-0.6); MONO % 10.5 % (1.7-9.3); PLATELET COUNT 189 K/mm3 (130-400); RED BLOOD COUNT 3.77 M/mm3 (4.20-5.60); REDCELL DISTRIBUTION WIDTH-CV 16.1 % (11.5-14.5)
[2019-01-30 06:21] LABS: HEMATOCRIT 32.2 % (42.0-52.0); HEMOGLOBIN 10.1 g/dl (13.5-18.0); MEAN CORPUSCULAR HEMOGLOBIN 27 pg (27.0-31.0)
[2019-01-30 06:35] LABS: CALCIUM 8.2 mg/dL (8.4-10.2); CREATININE, serum 0.85 (0.66-1.25); POTASSIUM 3.6 mmol/L (3.4-5.0)
--- NOTE | 2019-01-30 06:43 | NUR ---
Report given PAULINE Dumont
--- NOTE | 2019-01-30 08:00 | NUR ---
SEE MORNING ASSESSMENT.
--- NOTE | 2019-01-30 09:00 | NUR ---
CONSENT FORM SIGNED AND ON PATIENT CHART. NS TO GRAVITY FLOW TUBING AND INFUING TO RUE PICC LINE. PATIENT TAKEN TO PERIOP VIA BED BY PAULINE METZ. WILL WAIT FOR ARRIVAL POST-OP BACK TO ROOM 341.
--- NOTE | 2019-01-30 11:30 | NUR ---
PATIENT ARRVIED BACK TO ROOM 341 FROM PACU. POST-OP VSS. DRESSING CD&I. DRAIN IN PLACE TO RIGHT STUMP. NO NEEDS AT THIS TIME.
--- NOTE | 2019-01-30 19:11 | NUR ---
REPORT GIVEN TO PAULINE STEWARD.
--- NOTE | 2019-01-30 21:50 | NUR ---
Sitting up in bed. Rates pain in right knee 5/10. Administered pain medication as prescribed. Moose dressing to right knee CDI. Knee is elevated on pillow. Patient denies any further concerns or needs.
--- NOTE | 2019-01-30 23:02 | NUR ---
Lying in bed with eyes closed. Respirations even and unlabored. Patient is using CPAP at this time. No signs or symptoms of discomfort noted.
[2019-01-31] VITALS (7 sets, daily range): BP systolic 110–132; BP diastolic 54–70; PULSE 61–65; TEMP 97.2–98.6
--- NOTE | 2019-01-31 00:15 | NUR ---
Lying in bed with eyes closed with CPAP on. Opens eyes when name called out. Explains that his pain is very minimal at this time. Dressing to right knee CDI, hemovac continues to be compressed draining a small amount of bloody discharge. Patient denies further needs at this time.
--- NOTE | 2019-01-31 03:55 | NUR ---
Lying in bed with eyes closed. Respirations even and unlabored. No signs or symptoms of discomfort noted at this time.
--- NOTE | 2019-01-31 04:30 | NUR ---
Lying in bed with eyes closed and CPAP on. Eyes open when enter room and say patient name. Explains that pain in right knee is at 5/10 and he would like to get pain medication. Administered pain medication as ordered. Provided bed bath to patient and linens changed at this time. Patient tolerates without difficulty. Moose wrap pressure dressing to right knee CDI. Hemovac drain compressed with scant amount of bloody discharge in container. Patient denies further needs at this time.
[2019-01-31 05:44] LABS: BASO % 0.3 % (0.0-2.0); EOS # 0.1 (0.0-0.7); EOS % 1.9 % (0-4.0); GRAN # 4.7 (1.4-6.5); GRAN % 64.3 % (42.2-75.2); HEMOGLOBIN 10.2 g/dl (13.5-18.0); LYMPH # 1.7 (1.2-3.4); LYMPH % 23.7 % (20.0-51.0); MEAN CELL VOLUME 85 fl (80.0-100.0); MEAN CORPUSCULAR HEMOGLOBIN 27 pg (27.0-31.0); MEAN CORPUSCULAR HGB CONC 31 g/dl (33.0-37.0); MEAN PLATELET VOLUME 9.1 fl (7.4-10.4); MONO # 0.7 (0.1-0.6); MONO % 9.2 % (1.7-9.3); PLATELET COUNT 200 K/mm3 (130-400); RED BLOOD COUNT 3.84 M/mm3 (4.20-5.60); REDCELL DISTRIBUTION WIDTH-CV 16.3 % (11.5-14.5)
[2019-01-31 05:46] LABS: HEMATOCRIT 32.8 % (42.0-52.0)
[2019-01-31 06:00] LABS: CALCIUM 8.6 mg/dL (8.4-10.2); CREATININE, serum 1.01 (0.66-1.25)
--- NOTE | 2019-01-31 08:20 | NUR ---
Patient in bed resting. Alert and oriented x 3. Shift assessment complete. Moose wrap to right lower extremity is CDI. Hemovac to right lower extremity with minimal drainage. PICC line to right upper extremity without difficulties. Pain 4/10 to RLE. Denies further needs at this time.
--- NOTE | 2019-01-31 14:31 | NUR ---
The patient will be needing IV antibiotics upon discharge. FIRE BOAT ENGINEER student met with the patient present the DME choice form. Patient chose [facility]. FIRE BOAT ENGINEER student faxed the referrals. FIRE BOAT ENGINEER student presented Medicare.gov's list of home health agencies to the patient. The patient chose [facility]. FIRE BOAT ENGINEER student faxed referral. Awaiting responses.
--- NOTE | 2019-01-31 15:34 | NUR ---
Isela from [facility] reports they can accept the patient for intermediate health services. building services engineer will continue to follow.
--- NOTE | 2019-01-31 15:44 | NUR ---
Abigail from [facility] reports they can accept the patient for services. The patient has met deductibles and will be covered 100%. career services officer [facility]
--- NOTE | 2019-01-31 18:57 | NUR ---
Patient has done well throughout the day. Transfered to recliner with PT. Has been up in recliner thoughout the day. Hemovac to right lower extremity with bloody drainage present, MARIA wrap remains CDI. Denies further needs at this time. Reported off to tester electronic scale.
--- NOTE | 2019-01-31 20:38 | NUR ---
Sitting up in chair. Patient says that it feels good to be out of the bed. Rates pain 3/10 in right knee. Moose dressing to right knee CDI. Hemovac drain intact draining scant amount of bloody discharge. Patient denies concerns or needs at this time.
--- NOTE | 2019-01-31 21:00 | NUR ---
Patient requests to transfer into bed. Has prosthetic on left leg. Transfer with standby assist. Repositions self in bed. Dressing to right knee CDI. Patient continues to have only minimal pain. Company in room with the patient. Patient denies further needs at this time.
--- NOTE | 2019-02-01 00:42 | NUR ---
Lying in bed with eyes open. Rates pain 7/10 in right knee, dressing CDI. Administered pain medication as prescribed. Patient explains that he is going to try to sleep at this time and was applying his CPAP. Denies further needs.
--- NOTE | 2019-02-01 00:53 | NUR ---
Lying in bed with eyes closed. Respirations even and unlabored. No signs or symptoms of discomfort noted.
[2019-02-01 06:20] LABS: BASO % 0.2 % (0.0-2.0); EOS # 0.2 (0.0-0.7); EOS % 2.1 % (0-4.0); GRAN # 6.3 (1.4-6.5); GRAN % 66.3 % (42.2-75.2); HEMOGLOBIN 10.4 g/dl (13.5-18.0); LYMPH # 2.1 (1.2-3.4); LYMPH % 22.1 % (20.0-51.0); MEAN CELL VOLUME 85 fl (80.0-100.0); MEAN CORPUSCULAR HEMOGLOBIN 27 pg (27.0-31.0); MEAN CORPUSCULAR HGB CONC 31 g/dl (33.0-37.0); MEAN PLATELET VOLUME 9.2 fl (7.4-10.4); MONO # 0.8 (0.1-0.6); MONO % 8.5 % (1.7-9.3); PLATELET COUNT 201 K/mm3 (130-400); RED BLOOD COUNT 3.91 M/mm3 (4.20-5.60); REDCELL DISTRIBUTION WIDTH-CV 15.9 % (11.5-14.5)
[2019-02-01 06:28] LABS: CALCIUM 8.7 mg/dL (8.4-10.2); CREATININE, serum 0.82 (0.66-1.25); POTASSIUM 3.6 mmol/L (3.4-5.0)
[2019-02-01 06:38] VITALS: BP 123/74; PULSE 62; TEMP 97.4
[2019-02-01 06:59] LABS: HEMATOCRIT 33.2 % (42.0-52.0)
--- NOTE | 2019-02-01 07:30 | NUR ---
Head to toe assessment performed. Pt reports last bowel movement a week prior but states this is normal and is not in any discomfot. PICC line in right upper arm in place with dionicio wrap. No reddness or swelling above or below. Observed Hemovac drain reomved and dressing changed. Wound edges well approximated with george. Slight reddness and edema observed. Pt. reports no pain and denied needing anything at this time.
--- NOTE | 2019-02-01 07:50 | NUR ---
Reported on to Angela CARPENTER
[2019-02-01 08:00] VITALS: BP 123/64; PULSE 52; TEMP 98.3
--- NOTE | 2019-02-01 08:00 | NUR ---
Patient in bed resting. Alert and oriented x 3. Shift assessment complete. PICC line to JASS without complications. Has Moose wrap to right lower extremity, CDI. Denies pain at this time. Denies further needs at this time.
--- NOTE | 2019-02-01 09:00 | NUR ---
Pt sitting up in bed and reports no pain. Ate roughly 50% of breakfast. Denied needing anything else at this time.
[2019-02-01] MEDS ORDERED: MAXIPIME2 GM IV (09:57)
[2019-02-01] MEDS ORDERED: BD POSIFLUSH SF10 ML IV (09:57)
[2019-02-01] MEDS ORDERED: NORCO 325 MG-51 TAB PO (10:04)
--- NOTE | 2019-02-01 10:30 | NUR ---
Moved to chair on own. Peformed his own oral and body hygiene and got self dressed.
--- NOTE | 2019-02-01 10:32 | NUR ---
The patient is to discharge home today, 02/01 with home health nursing services with [facility]. SILVERIO presented the IM form to the patient. The patient understood and signed the form. A copy was provided to the patient and original was placed in the chart. The patient is requiring IV antibiotics. [facility] reports the patient is covered 100%. SILVERIO faxed discharge orders and other necessary paperwork. There are no addtional needs at this time.
[2019-02-01 10:56] VITALS: BP 113/54; PULSE 64; TEMP 98.3
--- NOTE | 2019-02-01 11:16 | NUR ---
Reported off to PAULINE Murray
--- NOTE | 2019-02-01 15:55 | NUR ---
Discharge education provided to patient. Educated on signs and symptoms of infection and when to call provider. Provided with follow up appointments and education on medications. PICC line education provided to patient. Caps changed and dressing changed prior to dischage, patient will be coming in to express unit for dressing changes. Patient states he has been called by pharmacy for delivery of medications. Denies further needs at this time. Patient out by wheelchair with surgical staff and spouse.
== END 2019-02-01 13:55 | disposition home health service (06) | DRG 464 ==
LOC: SURG 16:00
PROVIDERS: Nurse Practitioner Family; Orthopaedic Surgery; ADMIT Hospitalist
PROC: 0QBG0ZZ Excision of Right Tibia, Open Approach (ICD-10-PCS; 2019-01-26)
PROC: 0JCN0ZZ Extirpation of Matter from Right Lower Leg Subcutaneous Tissue and Fascia, Open Approach (ICD-10-PCS; 2019-01-27)
PROC: 02HV33Z Insertion of Infusion Device into Superior Vena Cava, Percutaneous Approach (ICD-10-PCS; 2019-01-27)
PROC: 0QBG0ZZ Excision of Right Tibia, Open Approach (ICD-10-PCS; 2019-01-27)
PROC: 0YQH0ZZ Repair Right Lower Leg, Open Approach (ICD-10-PCS; 2019-01-30)
PROC: 0JBN0ZZ Excision of Right Lower Leg Subcutaneous Tissue and Fascia, Open Approach (ICD-10-PCS; principal; 2019-01-30 08:00)
DX: T87.81 Dehiscence of amputation stump (principal); Z68.41 Body mass index [BMI] 40.0-44.9, adult; L03.115 Cellulitis of right lower limb; T87.43 Infection of amputation stump, right lower extremity; Y83.5 Amputation of limb(s) as the cause of abnormal reaction of the patient, or of later complication, without mention of misadventure at the time of the procedure; E11.9 Type 2 diabetes mellitus without complications; I25.10 Atherosclerotic heart disease of native coronary artery without angina pectoris; F32.9 Major depressive disorder, single episode, unspecified; I10 Essential (primary) hypertension; G47.33 Obstructive sleep apnea (adult) (pediatric); D50.9 Iron deficiency anemia, unspecified; I25.2 Old myocardial infarction; E66.01 Morbid (severe) obesity due to excess calories; N32.81 Overactive bladder; K21.9 Gastro-esophageal reflux disease without esophagitis; F41.9 Anxiety disorder, unspecified; G47.00 Insomnia, unspecified; Z79.82 Long term (current) use of aspirin; Z79.4 Long term (current) use of insulin; Z99.81 Dependence on supplemental oxygen; Z95.1 Presence of aortocoronary bypass graft; Z95.5 Presence of coronary angioplasty implant and graft; Z86.14 Personal history of Methicillin resistant Staphylococcus aureus infection; Z88.8 Allergy status to other drugs, medicaments and biological substances
CPT/HCPCS: 99222-AI; 99231-AI; 99232-AI; 99239; A9284; C1751; J0690; J0692; J1815; J2270; J2405; J2543; J2704; J3010; J3370; J7030; J7040; J7050

== ENCOUNTER → 2019-02-24 | Outpatient (CLI) | payer BC, MEDICARE ==
[~2019-02-24] VITALS: Ht 175.3 cm; Wt 123.9 kg
[~2019-02-24] MED LIST changes: +BD POSIFLUSH SF10 ML IV; +MAXIPIME2 GM IV
[2019-02-24 15:32] VITALS: BP 114/56; PULSE 60
[2019-03-01 16:22] VITALS: BP 114/56; PULSE 60
== END ==
LOC: LIGHT 13:48
DX: E11.9 Type 2 diabetes mellitus without complications (principal); I10 Essential (primary) hypertension; Z98.84 Bariatric surgery status; E66.01 Morbid (severe) obesity due to excess calories; Z71.3 Dietary counseling and surveillance
CPT/HCPCS: G0463

== ENCOUNTER 2019-03-02 12:25 | Outpatient (RCR) | payer BC, MEDICARE ==
--- NOTE | 2019-02-07 14:15 | NUR ---
Pt states " I have Home Health and they are going to do the labs and dressing changes. It is too much for me to try to get there with the wheelchair and transportation."
[~2019-03-02] VITALS: Ht 175.3 cm; Wt 124.0 kg
--- NOTE | 2019-03-02 13:00 | NUR ---
received a phone call from patient regarding concern of some discomfort of PICC insertion site. Patient advised to come to the express unit for evaluation. PICC intact right upper arm. Patient reported half-dollar size area of discomfort around insertion site. No redness noted. Vein is nondistended. No fullness palpated. Probable irritation of the vein and/or subcutaneous area. Advised elevation, rest, and heat. Patient may take Tylenol if warranted for discomfort. Advised to contact express unit if pain not relieved or improved by a.m. At that time we will discuss other options. Patient voiced understanding of instructions.
[2019-03-02 13:25] VITALS: BP 134/73; PULSE 77; TEMP 97.7
[2019-03-20] MEDS ORDERED: PLAVIX 75MG TAB75 MG PO (22:11)
[2019-03-20] MEDS ORDERED: CEPHALEXIN500 M1 PO (22:53)
[2019-03-24] MEDS ORDERED: DIFLUCAN200 MG PO (10:03)
[2019-04-13] MEDS ORDERED: NORCO 325 MG-51 TAB PO (19:13)
== END 2019-04-21 18:27 | disposition home or self-care (01) ==
LOC: EUO 12:25
DX: T87.43 Infection of amputation stump, right lower extremity (principal)

== ENCOUNTER 2019-03-20 16:16 | Inpatient (IN) | payer BC, MEDICARE ==
[~2019-03-20] VITALS: Ht 175.3 cm; Wt 117.0 kg
[2019-03-20 17:19] LABS: BASO # 0.1 (0.0-0.2); BASO % 0.5 % (0.0-2.0); EOS # 0.2 (0.0-0.7); EOS % 2.1 % (0-4.0); GRAN # 7.8 (1.4-6.5); GRAN % 70.4 % (42.2-75.2); HEMATOCRIT 39.5 % (42.0-52.0); MEAN CELL VOLUME 75 fl (80.0-100.0); MEAN CORPUSCULAR HEMOGLOBIN 23 pg (27.0-31.0); MEAN CORPUSCULAR HGB CONC 30 g/dl (33.0-37.0); MEAN PLATELET VOLUME 9.6 fl (7.4-10.4); MONO % 8.6 % (1.7-9.3); PLATELET COUNT 239 K/mm3 (130-400); REDCELL DISTRIBUTION WIDTH-CV 16.9 % (11.5-14.5)
[2019-03-20 17:32] LABS: ALBUMIN 4.3 gm/dL (3.5-5.0); BILIRUBIN,TOTAL 0.4 mg/dL (0.0-1.0); C-REACTIVE PROTEIN 1.3 mg/dL (0.0-0.9); CALCIUM 9.8 mg/dL (8.4-10.2); CREATININE, serum 1.53 (0.66-1.25); POTASSIUM 4.4 mmol/L (3.4-5.0); TOTAL PROTEIN 8.1 gm/dL (6.4-8.2)
[2019-03-20 17:40] LABS: TROPONIN-I 0.019 ng/mL (0.000-0.035)
[2019-03-20 18:56] LABS: COLLECTION METHOD CLEAN CATCH
[2019-03-20 19:21] LABS: BUDDING YEAST Present /hpf; MUCOUS Present /lpf; PH 5 (5-8); SQUAMOUS EPITHELIAL 0-2 /hpf; URINE APPEARANCE Clear; URINE BACTERIA Rare /hpf; URINE BILIRUBIN Negative (NEGATIVE); URINE BLOOD 2+ (NEGATIVE); URINE COLOR Straw; URINE GLUCOSE 3+ (NEGATIVE); URINE KETONE Negative (NEGATIVE); URINE LEUKOCYTE ESTERASE 1+ (NEGATIVE); URINE NITRATE Negative (NEGATIVE); URINE PROTEIN(semi-quant) Negative (NEGATIVE); URINE RBC 20-50 /hpf; URINE UROBILINOGEN Negative (NEGATIVE)
--- NOTE | 2019-03-20 22:07 | NUR ---
Pt arrived to unit from ED with c/o right sided abdominal pain that radiates to back. Patient is alert and oriented with VSS. Heart and lung sounds normal. Has IV in Right AC with NS running at 125. Patient is obese with soft abdomen and decreased BS in all quadrants. Patient does have EMANI BKA. Patient call light within reach, no concerns at this time. Will continue to monitor
[2019-03-20] MEDS ORDERED: PLAVIX 75MG TAB75 MG PO (22:11)
[2019-03-20 22:13] VITALS: BP 133/58; PULSE 60; TEMP 97.3
[2019-03-20 22:50] VITALS: BP 133/58; PULSE 61; TEMP 97.3
[2019-03-20] MEDS ORDERED: CEPHALEXIN500 M1 PO (22:53)
[2019-03-21 03:59] VITALS: BP 107/60; PULSE 66; TEMP 97.9
--- NOTE | 2019-03-21 04:11 | NUR ---
Pt resting in bed bed with his own CPAP machine on. No concerns at this time. Call light within reach, will continue to monitor
[2019-03-21 07:29] LABS: BASO % 0.2 % (0.0-2.0); GRAN # 15.6 (1.4-6.5); GRAN % 84.9 % (42.2-75.2); HEMATOCRIT 37.2 % (42.0-52.0); HEMOGLOBIN 11.4 g/dl (13.5-18.0); LYMPH # 1.2 (1.2-3.4); LYMPH % 6.4 % (20.0-51.0); MEAN CELL VOLUME 74 fl (80.0-100.0); MEAN CORPUSCULAR HEMOGLOBIN 23 pg (27.0-31.0); MEAN CORPUSCULAR HGB CONC 31 g/dl (33.0-37.0); MEAN PLATELET VOLUME 9.7 fl (7.4-10.4); MONO # 1.5 (0.1-0.6); MONO % 8.1 % (1.7-9.3); PLATELET COUNT 227 K/mm3 (130-400); REDCELL DISTRIBUTION WIDTH-CV 17.1 % (11.5-14.5)
[2019-03-21 07:37] VITALS: BP 101/50; PULSE 75; TEMP 97.7
[2019-03-21 07:43] LABS: CALCIUM 9.2 mg/dL (8.4-10.2); CREATININE, serum 1.36 (0.66-1.25); POTASSIUM 4.1 mmol/L (3.4-5.0)
--- NOTE | 2019-03-21 08:00 | NUR ---
PATIENT IS A&O. VSS. PATIENT IS CURRENTLY NPO FOR POSSIBLE CYSTO TODAY. AWAITING ORDERS FROM UROLOGY. AM MEDS GIVEN WITH SIPS. IV FLUIDS INFUSING IN RIGHT AC VIA PUMP. NO C/O N/V. BS 173. HEAD TO TOE WNL. NO C/O PAIN. PATIENT CONCERNED ABOUT MARIJA TO RIGHT SUMP AND REQUESTING NURSING CALL ORTHO FOR REMOVAL DATE. NOTIFIED ORTHO. PATIENT HAS AN OUTPATIENT APT IN 2 DAYS AND WILL HAVE MARIJA REMOVED AT THAT TIME. NO OTHER NEEDS. CALL LIGHT IN REACH.
--- NOTE | 2019-03-21 09:29 | NUR ---
SILVERIO met with the patient to discuss a discharge plan. The patient lives in [place] with Deion and their son. The patient has a wheelchair, knee scooter and CPAP. The patient reports independence with ADLs. The patient's PCP is Dr. Yun and patient receives medications from [facility] with no difficulties. The patient has advanced directives in the EMR. The patient plans to return home upon discharge with Deion providing transportation. There are no additional needs at this time.
--- NOTE | 2019-03-21 09:45 | NUR ---
HOSPITALIST CARE TEAM ROUNDING. SEE ORDERS.
--- NOTE | 2019-03-21 11:21 | NUR ---
Initial visit; Patient and spouse thanked Revenue Tax Specialist for looking in on David and offering God's blessings and a continued recovery.
[2019-03-21 11:53] VITALS: BP 101/49; PULSE 72; TEMP 98.2
[2019-03-21 15:58] VITALS: BP 114/52; PULSE 75; TEMP 98.2
--- NOTE | 2019-03-21 19:15 | NUR ---
Report received from Sarah CARPENTER. Patient sitting up in bed awaiting supper tray. Denies needs at this time.
[2019-03-21 19:59] VITALS: BP 117/44; PULSE 77; TEMP 98.4
[2019-03-21 23:15] VITALS: BP 119/60; PULSE 76; TEMP 99.6
--- NOTE | 2019-03-21 23:36 | NUR ---
Patient awakened for meds. Accu check 304 patient reports due to the flavored tea he had. SSI given. Patient NPO after midnight and voices understanding.
--- NOTE | 2019-03-22 01:41 | NUR ---
Patient rests with eyes closed. Respirations with ease. CPAP on.
[2019-03-22 04:00] VITALS: BP 118/60; PULSE 68; TEMP 98.4
--- NOTE | 2019-03-22 05:15 | NUR ---
Patient rests with eyes closed. CPAP on.
--- NOTE | 2019-03-22 06:24 | NUR ---
Message left on Dr. Vaughn cell phone of positive blood culture called to this nurse by lab results of beverley albicans.
[2019-03-22 06:54] LABS: BASO % 0.2 % (0.0-2.0); EOS # 0.2 (0.0-0.7); EOS % 1.4 % (0-4.0); GRAN # 8.7 (1.4-6.5); GRAN % 71.6 % (42.2-75.2); HEMOGLOBIN 10.3 g/dl (13.5-18.0); LYMPH # 1.8 (1.2-3.4); LYMPH % 14.9 % (20.0-51.0); MEAN CELL VOLUME 74 fl (80.0-100.0); MEAN CORPUSCULAR HEMOGLOBIN 22 pg (27.0-31.0); MEAN CORPUSCULAR HGB CONC 30 g/dl (33.0-37.0); MEAN PLATELET VOLUME 9.5 fl (7.4-10.4); MONO # 1.4 (0.1-0.6); MONO % 11.2 % (1.7-9.3); PLATELET COUNT 195 K/mm3 (130-400); REDCELL DISTRIBUTION WIDTH-CV 17.2 % (11.5-14.5)
[2019-03-22 06:58] LABS: HEMATOCRIT 34.1 % (42.0-52.0)
[2019-03-22 07:10] LABS: ALBUMIN 3.5 gm/dL (3.5-5.0); BILIRUBIN,TOTAL 0.3 mg/dL (0.0-1.0); CALCIUM 8.5 mg/dL (8.4-10.2); CREATININE, serum 1.08 (0.66-1.25); POTASSIUM 3.5 mmol/L (3.4-5.0)
[2019-03-22 07:14] VITALS: BP 115/51; PULSE 72; TEMP 98.2
--- NOTE | 2019-03-22 11:30 | NUR ---
Airplane Refueler attended clinical rounds with the team. Patient likely to discharge tomorrow. Patient plans to return home upon discharge.
[2019-03-22 12:00] VITALS: BP 123/61; PULSE 71; TEMP 97.7
[2019-03-22 16:24] VITALS: BP 102/44; PULSE 67; TEMP 98.6
--- NOTE | 2019-03-22 18:30 | NUR ---
Patient has been doing well today. He has been comfortable without pain or nausea. He understands that he staying one more night than will hopefully discharge home tomorrow. Dressing to right BKA is clean and dry. Offered patient a shower but he wanted to wait, he does not have a change of clothes. No other changes at this time. Call light within reach.
[2019-03-22 20:25] VITALS: BP 132/73; PULSE 67; TEMP 98
--- NOTE | 2019-03-22 20:30 | NUR ---
PATIENT RESTING IN BED QUIETLY, DENIES ANY PAIN, DIZZINESS. STUMP UNDERWEAR CUTTER INTACT TO RIGHT STUMP. CALL LIGHT WITHIN PATIENT'S REACH.
--- NOTE | 2019-03-22 23:30 | NUR ---
PATIENT STATES HE REQUESTED/GIVEN XEROFORM WITH GAUZE WRAP DRESSING, WITH PATIENT HAVING CHANGED DRESSING AT HOME. PATIENT CHANGED DRESSING WITH NO PROBLEMS, REPORTING THAT LATERAL END OF RIGHT STUMP INCISION HAS NOT COMPLETELY HEALED "YET".
[2019-03-22 23:48] VITALS: BP 115/64; PULSE 67; TEMP 98.6
--- NOTE | 2019-03-23 04:00 | NUR ---
PATIENT AWAKE, STATED HE JUST WOKE UP. RESTING QUIETLY IN BED. DENIES ANY PAIN OR CONCERNS. WATER/CALL LIGHT WITHIN REACH. BED IN LOW POSITION. REPORTS CONCERNS OBSERVED BLOOD TO DRESSING OF IV SITE TO RIGHT AC. OBSERVED IV SITE WITHOUT REDNESS OR SWELLING WITH PATIENT DENYING PAIN WITH PALPATION TO IV SITE.
[2019-03-23 04:11] VITALS: BP 118/70; PULSE 67; TEMP 97.8
--- NOTE | 2019-03-23 06:26 | NUR ---
CONTINUES TO HAVE NO COMPLAINTS CURRENTLY. RESTING QUIETLY IN BED. CALL LIGHT WITHIN REACH.
--- NOTE | 2019-03-23 07:01 | NUR ---
REPORT GIVEN TO DAY SHIFT NURSEMARTIN RN. PATIENT DENIES ANY NEEDS OR CONCERNS. CALL LIGHT WITHIN PATIENT'S REACH.
[2019-03-23 07:09] VITALS: BP 118/59; PULSE 65; TEMP 98
[2019-03-23 07:25] LABS: CALCIUM 8.9 mg/dL (8.4-10.2); CREATININE, serum 1.15 (0.66-1.25); POTASSIUM 3.5 mmol/L (3.4-5.0)
[2019-03-23 07:37] LABS: BASO % 0.3 % (0.0-2.0); EOS # 0.4 (0.0-0.7); EOS % 3.2 % (0-4.0); GRAN # 7.4 (1.4-6.5); GRAN % 66.3 % (42.2-75.2); HEMATOCRIT 37.4 % (42.0-52.0); LYMPH # 2.2 (1.2-3.4); LYMPH % 19.4 % (20.0-51.0); MEAN CELL VOLUME 75 fl (80.0-100.0); MEAN CORPUSCULAR HEMOGLOBIN 22 pg (27.0-31.0); MEAN CORPUSCULAR HGB CONC 29 g/dl (33.0-37.0); MEAN PLATELET VOLUME 9.7 fl (7.4-10.4); MONO # 1.1 (0.1-0.6); MONO % 10.1 % (1.7-9.3); PLATELET COUNT 244 K/mm3 (130-400); RED BLOOD COUNT 4.97 M/mm3 (4.20-5.60); REDCELL DISTRIBUTION WIDTH-CV 17.5 % (11.5-14.5)
--- NOTE | 2019-03-23 10:00 | NUR ---
Patient resting in bed. Hospitalist team rounded. Plan of care reviewed. Patient independent with dressing change to R.stump, george intact-xeroform & kerlix intact. Int to Rac. Awaiting ID reccomindations. He is tolerating diet. denies pain. Will monitor.
[2019-03-23 11:24] VITALS: BP 112/61; PULSE 64; TEMP 98.1
[2019-03-23 15:42] VITALS: BP 115/58; BP 152/89; PULSE 53; PULSE 66; TEMP 98.5
--- NOTE | 2019-03-23 17:27 | NUR ---
Patient resting in bed. denies pain. Insulin per orders. minimal needs today.
--- NOTE | 2019-03-23 19:23 | NUR ---
report to Cinda Patient denies concerns
--- NOTE | 2019-03-23 19:33 | NUR ---
REPORT RECEIVED FROM DAY SHIFT NURSE, PATIENT RESTING IN BED, DENIES ANY NEEDS OR CONCERNS CURRENTLY. CALL LIGHT/WATER WITHIN PATIENT'S REACH. BED IN LOW POSITION.
[2019-03-23 20:00] VITALS: BP 122/75; PULSE 65; TEMP 98.1
[2019-03-23 23:29] VITALS: BP 128/68; PULSE 62; TEMP 98
--- NOTE | 2019-03-24 01:35 | NUR ---
DENIES ANY NEEDS CURRENTLY. RESTING IN BED WITH CALL LIGHT/WATER WITHIN PATIENT'S REACH. BED IN LOW POSITION.
[2019-03-24 04:00] VITALS: BP 122/66; PULSE 54; TEMP 98.1
[2019-03-24 06:46] LABS: BASO % 0.4 % (0.0-2.0); EOS # 0.5 (0.0-0.7); EOS % 4.5 % (0-4.0); GRAN # 6.3 (1.4-6.5); GRAN % 61.1 % (42.2-75.2); HEMOGLOBIN 10.8 g/dl (13.5-18.0); LYMPH # 2.5 (1.2-3.4); MEAN CELL VOLUME 74 fl (80.0-100.0); MEAN CORPUSCULAR HEMOGLOBIN 22 pg (27.0-31.0); MEAN CORPUSCULAR HGB CONC 30 g/dl (33.0-37.0); MEAN PLATELET VOLUME 9.7 fl (7.4-10.4); MONO # 0.9 (0.1-0.6); PLATELET COUNT 227 K/mm3 (130-400); RED BLOOD COUNT 4.91 M/mm3 (4.20-5.60); REDCELL DISTRIBUTION WIDTH-CV 17.3 % (11.5-14.5)
[2019-03-24 06:53] LABS: CREATININE, serum 1.07 (0.66-1.25); POTASSIUM 3.8 mmol/L (3.4-5.0)
[2019-03-24 06:58] LABS: HEMATOCRIT 36.5 % (42.0-52.0)
--- NOTE | 2019-03-24 07:10 | NUR ---
sitting up in bed eating breakfst, bedside shift report received from PAULINE Bennett
[2019-03-24 07:32] VITALS: BP 122/55; PULSE 64; TEMP 97.7
--- NOTE | 2019-03-24 07:34 | NUR ---
RESTING IN BED WITH NO COMPLAINTS DURING SHIFT REPORT TO DAY NURSE.
--- NOTE | 2019-03-24 08:30 | NUR ---
remains sitting up in bed watching TV, full assessment completed, see interventions for further info, dressing off incison to right stump, george intact, dry and healing to medial side but red on lateral side, provided patient with xeroform gauze and kerlix for him to redress the incision, denies needs
--- NOTE | 2019-03-24 09:52 | NUR ---
Dr Rey and care team in to see patient, will plan discharge later,
[2019-03-24] MEDS ORDERED: DIFLUCAN200 MG PO (10:03)
--- NOTE | 2019-03-24 10:28 | NUR ---
remains sitting up in bed with TV on
--- NOTE | 2019-03-24 10:39 | NUR ---
Dry Ice Maker attended rounds with the team. Patient to discharge today. No additional concerns.
--- NOTE | 2019-03-24 10:54 | NUR ---
Dr Azar called this nurse and report was provided
[2019-03-24 11:39] VITALS: BP 115/65; PULSE 65; TEMP 98
--- NOTE | 2019-03-24 13:00 | NUR ---
discharge instructions given to patient, verbalizes understanding, discharged per WC
== END 2019-03-24 13:00 | disposition home or self-care (01) | DRG 728 ==
LOC: COL.ER 16:16 → SURG 19:35
PROVIDERS: Emergency Medicine; Nurse Practitioner Family; Physician Assistant; ADMIT Internal Medicine
DX: B37.49 Other urogenital candidiasis (principal); N17.9 Acute kidney failure, unspecified; N13.6 Pyonephrosis; I25.10 Atherosclerotic heart disease of native coronary artery without angina pectoris; K59.00 Constipation, unspecified; F31.9 Bipolar disorder, unspecified; I27.20 Pulmonary hypertension, unspecified; K21.9 Gastro-esophageal reflux disease without esophagitis; G47.00 Insomnia, unspecified; E11.65 Type 2 diabetes mellitus with hyperglycemia; E11.51 Type 2 diabetes mellitus with diabetic peripheral angiopathy without gangrene; J98.4 Other disorders of lung; G43.909 Migraine, unspecified, not intractable, without status migrainosus; B96.89 Other specified bacterial agents as the cause of diseases classified elsewhere; G47.33 Obstructive sleep apnea (adult) (pediatric); Z79.4 Long term (current) use of insulin; I25.2 Old myocardial infarction; Z95.1 Presence of aortocoronary bypass graft; Z86.14 Personal history of Methicillin resistant Staphylococcus aureus infection; Z90.3 Acquired absence of stomach [part of]; Z95.5 Presence of coronary angioplasty implant and graft; Z90.49 Acquired absence of other specified parts of digestive tract; Z89.511 Acquired absence of right leg below knee; Z79.891 Long term (current) use of opiate analgesic; Z88.8 Allergy status to other drugs, medicaments and biological substances; Z89.612 Acquired absence of left leg above knee; Z89.611 Acquired absence of right leg above knee
CPT/HCPCS: 99222-AI; 99232-AI; 99239; J0696; J1170; J1450; J1644; J1815; J2270; J2405; J3010; J7030; Q9967

== ENCOUNTER 2019-04-13 17:05 | Emergency (ER) | payer BC, MEDICARE ==
[~2019-04-13] VITALS: Ht 175.3 cm; Wt 120.5 kg
[~2019-04-13 17:05] MED LIST changes: +DIFLUCAN200 MG PO
[2019-04-13 18:03] LABS: BASO # 0.1 (0.0-0.2); BASO % 0.6 % (0.0-2.0); EOS # 0.2 (0.0-0.7); EOS % 2.1 % (0-4.0); GRAN # 5.2 (1.4-6.5); GRAN % 56.9 % (42.2-75.2); HEMATOCRIT 38.2 % (42.0-52.0); HEMOGLOBIN 11.3 g/dl (13.5-18.0); LYMPH # 2.9 (1.2-3.4); LYMPH % 31.5 % (20.0-51.0); MEAN CELL VOLUME 70 fl (80.0-100.0); MEAN CORPUSCULAR HEMOGLOBIN 21 pg (27.0-31.0); MEAN CORPUSCULAR HGB CONC 30 g/dl (33.0-37.0); MEAN PLATELET VOLUME 9.3 fl (7.4-10.4); MONO # 0.8 (0.1-0.6); MONO % 8.5 % (1.7-9.3); PLATELET COUNT 233 K/mm3 (130-400); RED BLOOD COUNT 5.44 M/mm3 (4.20-5.60); REDCELL DISTRIBUTION WIDTH-CV 17.7 % (11.5-14.5)
[2019-04-13 18:14] LABS: ALBUMIN 4.2 gm/dL (3.5-5.0); BILIRUBIN,TOTAL 0.4 mg/dL (0.0-1.0); CALCIUM 9.1 mg/dL (8.4-10.2); CREATININE, serum 1.07 (0.66-1.25); POTASSIUM 4.2 mmol/L (3.4-5.0); TOTAL PROTEIN 8.1 gm/dL (6.4-8.2)
[2019-04-13] MEDS ORDERED: NORCO 325 MG-51 TAB PO (19:13)
[2019-04-13 21:01] VITALS: BP 130/78; PULSE 72; TEMP 98.1
== END 2019-04-13 21:00 | disposition home or self-care (01) ==
LOC: COL.ER 17:05
PROVIDERS: Emergency Medicine
DX: R07.89 Other chest pain (principal); E11.65 Type 2 diabetes mellitus with hyperglycemia; I10 Essential (primary) hypertension; Z79.4 Long term (current) use of insulin; Z79.02 Long term (current) use of antithrombotics/antiplatelets; Z89.512 Acquired absence of left leg below knee

== ENCOUNTER → 2019-04-27 | Outpatient (CLI) | payer BC, MEDICARE ==
[~2019-04-27] MED LIST changes: +NATURAL IRON65 MG PO; +WELLBUTRIN XL150 MG PO
== END ==
LOC: BHSO 09:38
DX: F33.41 Major depressive disorder, recurrent, in partial remission (principal)
CPT/HCPCS: G0463

== ENCOUNTER → 2019-10-13 | Outpatient (CLI) | payer BC, MEDICARE ==
[~2019-10-13] VITALS: Ht 175.3 cm; Wt 136.1 kg
[~2019-10-13] MED LIST changes: +SAXENDA6 MG/ML SQ
[2019-10-13 16:03] VITALS: BP 112/60; PULSE 76
== END ==
LOC: LIGHT 15:54
DX: E66.01 Morbid (severe) obesity due to excess calories (principal); Z68.41 Body mass index [BMI] 40.0-44.9, adult; I10 Essential (primary) hypertension; Z98.84 Bariatric surgery status; E11.9 Type 2 diabetes mellitus without complications; Z79.4 Long term (current) use of insulin
CPT/HCPCS: G0463

== ENCOUNTER → 2019-11-09 | Outpatient (CLI) | payer BC, MEDICARE | LOC: BHSO 09:35 | DX: F33.42 Major depressive disorder, recurrent, in full remission (principal) | CPT/HCPCS: G0463 ==

== ENCOUNTER → 2019-11-24 | Outpatient (CLI) | payer BC, MEDICARE ==
[~2019-11-24] VITALS: Ht 175.3 cm; Wt 126.6 kg
[2019-11-24 16:02] VITALS: BP 128/86; PULSE 60
== END ==
LOC: LIGHT 10:32
DX: E66.01 Morbid (severe) obesity due to excess calories (principal); E11.9 Type 2 diabetes mellitus without complications; I10 Essential (primary) hypertension; Z98.84 Bariatric surgery status; Z79.4 Long term (current) use of insulin
CPT/HCPCS: G0463

== ENCOUNTER → 2020-01-16 | Outpatient (CLI) | payer BC, MEDICARE ==
[~2020-01-16] VITALS: Ht 175.3 cm; Wt 134.5 kg
[2020-01-16 16:39] VITALS: BP 148/86; PULSE 71
== END ==
LOC: LIGHT 11:27
DX: E66.01 Morbid (severe) obesity due to excess calories (principal); Z68.41 Body mass index [BMI] 40.0-44.9, adult; E11.9 Type 2 diabetes mellitus without complications; I10 Essential (primary) hypertension; Z98.84 Bariatric surgery status
CPT/HCPCS: G0463

== ENCOUNTER → 2020-07-11 | Outpatient (CLI) | payer BC, MEDICARE ==
[~2020-07-11] MED LIST changes: +ADMELOG SO100 UNIT/1 SQ; +AMOXICILLIN 8751 TAB PO; +DESENEX TP; +DOXYCYCLINE HY100 MG PO; +LEVEMIR100 U/ML SQ; +LUNESTA3 MG PO; +SEGLUROMET 7.51 EAC1 PO; +TAZTIA180 PO; +TOUJEO MAX300 UNIT/1 SQ; +VANCOCIN HCL1 GM IV; +WELLBUTRIN SR150 M1 PO; +ZESTRIL 5MG5 MG PO
== END ==
LOC: COL.RAD 09:33
DX: K31.89 Other diseases of stomach and duodenum (principal); Z90.3 Acquired absence of stomach [part of]; K21.9 Gastro-esophageal reflux disease without esophagitis; Z98.890 Other specified postprocedural states; Z96.89 Presence of other specified functional implants

== ENCOUNTER 2020-10-19 20:40 | Inpatient (IN) | payer BC, MEDICARE ==
[~2020-10-19] VITALS: Ht 175.3 cm; Wt 132.4 kg
[~2020-10-19 20:40] MED LIST changes: -ADMELOG SO100 UNIT/1 SQ; -AMOXICILLIN 8751 TAB PO; -DESENEX TP; -DOXYCYCLINE HY100 MG PO; -LEVEMIR100 U/ML SQ; -LUNESTA3 MG PO; -SEGLUROMET 7.51 EAC1 PO; -TAZTIA180 PO; -TOUJEO MAX300 UNIT/1 SQ; -VANCOCIN HCL1 GM IV; -WELLBUTRIN SR150 M1 PO; -ZESTRIL 5MG5 MG PO
[2020-10-19 21:04] LABS: BASO % 0.3 % (0.0-2.0); EOS # 0.1 (0.0-0.7); EOS % 0.8 % (0-4.0); GRAN # 9.8 (1.4-6.5); GRAN % 74.4 % (42.2-75.2); HEMATOCRIT 49.7 % (42.0-52.0); HEMOGLOBIN 16.8 g/dl (13.5-18.0); LYMPH # 1.8 (1.2-3.4); LYMPH % 13.6 % (20.0-51.0); MEAN CELL VOLUME 82 fl (80.0-100.0); MEAN CORPUSCULAR HEMOGLOBIN 28 pg (27.0-31.0); MEAN CORPUSCULAR HGB CONC 34 g/dl (33.0-37.0); MEAN PLATELET VOLUME 9.5 fl (7.4-10.4); MONO # 1.4 (0.1-0.6); MONO % 10.4 % (1.7-9.3); PLATELET COUNT 212 K/mm3 (130-400); RED BLOOD COUNT 6.06 M/mm3 (4.20-5.60); REDCELL DISTRIBUTION WIDTH-CV 16.7 % (11.5-14.5)
[2020-10-19 21:18] LABS: ALBUMIN 4.4 gm/dL (3.5-5.0); BILIRUBIN,TOTAL 0.8 mg/dL (0.0-1.0); C-REACTIVE PROTEIN 0.7 mg/dL (0.0-0.9); CALCIUM 9.5 mg/dL (8.4-10.2); CREATININE, serum 1.04 (0.66-1.25); POTASSIUM 4.2 mmol/L (3.4-5.0); TOTAL PROTEIN 8.3 gm/dL (6.4-8.2)
[2020-10-20] VITALS (7 sets, daily range): BP systolic 126–155; BP diastolic 61–75; PULSE 76–93; TEMP 99.2–101.5
[2020-10-20] MEDS ORDERED: TOUJEO MAX300 UNIT/1 SQ (00:10)
[2020-10-20] MEDS ORDERED: ADMELOG SO100 UNIT/1 SQ (00:10)
[2020-10-20] MEDS ORDERED: REXULTI1 MG PO (00:11)
[2020-10-20] MEDS ORDERED: DITROPAN 5MG TAB5 MG PO (00:12)
[2020-10-20] MEDS ORDERED: LYRICA 150MG C150 MG PO (00:12)
[2020-10-20] MEDS ORDERED: LASIX 40MG TABL40 MG PO (00:12)
[2020-10-20] MEDS ORDERED: WELLBUTRIN XL300 M1 PO (00:13)
[2020-10-20] MEDS ORDERED: WELLBUTRIN SR150 M1 PO (00:13)
[2020-10-20] MEDS ORDERED: PRILOSEC 20MG20 MG PO (00:13)
[2020-10-20] MEDS ORDERED: LUNESTA3 MG PO (00:13)
[2020-10-20] MEDS ORDERED: PLAVIX 75MG TAB75 MG PO (00:14)
[2020-10-20] MEDS ORDERED: IMDUR 60MG60 MG/TAB PO (00:14)
[2020-10-20] MEDS ORDERED: TAZTIA180 PO (00:14)
[2020-10-20] MEDS ORDERED: SEGLUROMET 7.51 EAC1 PO (00:16)
[2020-10-20] MEDS ORDERED: ASPIRIN 81M81 MG/TA2 PO (00:22)
--- NOTE | 2020-10-20 01:48 | NUR ---
PATIENT ARRIVED TO UNIT FROM ED ALERT AND ORIENTED X4. RIGHT STAMP REDDNEN NO DRAINAGE NOTED. TEM 101.5, DENIES PAIN AT THIS TIME. ORIENTED TO ROOM, CALL LIGHT IN REACH, BED LOW AND LOCKED.
--- NOTE | 2020-10-20 01:49 | NUR ---
Vancomycin Initial Dosing Pharmacy Note Ordering provider: Rashid Delgado MD 50 YO M Indication/duration: RLE CELLULITS Relevant comorbidities: T2DM W/BILATERAL BKA W/SUBSEQUENT BILATERAL REVISIONS GOAL: 10- HX: PT WITH EXTENSIVE DOSING HISTORY, TWO MOST RECENT VT LISTED BELOW DATE SCR VT DOSING REGIMEN 01/27/19 0.98 18.78 1.5 GM Q8H 11/10/14 0.87 15.29 1.5 GM Q8H BMI: 46.1 WT: 141.8 KG ADJBW: 99 KG SCR: 1.04 ADJBW EST CRCL~ 118 ML/MIN T 1/2 ~ 7H TMAX: 101.5 WBC: 13.2 EST: 4 CRP: 1.1 LA: 1.6 MICRO IN PROCESS NO IMAGING AVAILABLE AT THIS TIME PT RECEIVED 1 GM DOSE IN ED ON 10/20 @ ~2200, WILL GIVE AN ADDITIONAL 1.5 GM DOSE NOW TO ACHEIVE AN ADEQUATE LOADING DOSE (2.5 GM ~ 18MG/KG). WILL THEN START A MAINTENANCE REGIMEN OF 1.25 GM Q8H, BASED ON PREVIOUS DOSING HISTORY THIS SHOULD PROVIDE A LEVEL WITHIN GOAL. WILL FOLLOW CLOSELY PT IS AT HIGH RISK FOR ACCUMULATION AND NOT FOLLOWING POPULATION BASED KINETICS 2/2 ELEVATED BMI. WILL FOLLOW RENAL FUNCTION, MICRO, IMAGING, AND CARE PLAN FOR NEED TO ADJUST THERAPY. THANK YOU FOR THIS DOSING CONSULT!
--- NOTE | 2020-10-20 03:42 | NUR ---
IV VANCO INFUSING, TETANUS SHOT GIVEN TO RIGHT DELTOID AREA. PATIENT RESTING IN BED STATING PAIN IS MUCH BETTER. WILL CONTINUE TO MONITOR.
[2020-10-20 07:57] LABS: HEMATOCRIT 49.6 % (42.0-52.0); HEMOGLOBIN 16.3 g/dl (13.5-18.0); MEAN CELL VOLUME 85 fl (80.0-100.0); MEAN CORPUSCULAR HEMOGLOBIN 28 pg (27.0-31.0); MEAN CORPUSCULAR HGB CONC 33 g/dl (33.0-37.0); MEAN PLATELET VOLUME 9.4 fl (7.4-10.4); PLATELET COUNT 173 K/mm3 (130-400); RED BLOOD COUNT 5.81 M/mm3 (4.20-5.60); REDCELL DISTRIBUTION WIDTH-CV 16.6 % (11.5-14.5)
[2020-10-20 08:09] LABS: CALCIUM 8.7 mg/dL (8.4-10.2); CREATININE, serum 1.01 (0.66-1.25); POTASSIUM 4.4 mmol/L (3.4-5.0)
[2020-10-20 08:32] LABS: BAND 2 % (0-10); BASOPHIL 1 % (0-2); LYMPHOCYTE 11 % (20.0-51.0); NEUTROPHILS 75 % (42.0-75.2); PLATELET ESTIMATE NORMAL (NORMAL)
[2020-10-20 08:33] LABS: ANISOCYTOSIS 1+; HYPOCHROMIA 2+
--- NOTE | 2020-10-20 10:12 | NUR ---
Assessment completed, alert/oriented, vital signs stable, continues to run low grade fevers, reports feeling "crappy" overall, pain to his right stump that started yesterday/ treating with [place], some swelling and redness noted to right stump as well, he has a wound/sore to his right stump that is close and not draining at this time, blood glucose levels have been high/ treating with SSI, heart RRR, lungs CTA/ no resp.difficulty, IV abx infusing/ Cx pending, he denies other needs at this time, will continue to monitor
--- NOTE | 2020-10-20 19:09 | NUR ---
PATIENT IN BED SITTING UP, ALERT AND ORIENTED X4, SPOUSE AT BEDSIDE. NORCO 1 TAB GIVEN FOR 10/27 TO RIGHT STAMP. CALL LIGHT IN REACH, WILL CONTINUE TO MONITOR.
[2020-10-21 04:06] VITALS: BP 133/71; PULSE 79; TEMP 99.6
[2020-10-21 06:29] LABS: BASO # 0.1 (0.0-0.2); BASO % 0.4 % (0.0-2.0); EOS % 0.3 % (0-4.0); GRAN % 80.2 % (42.2-75.2); HEMATOCRIT 48.1 % (42.0-52.0); HEMOGLOBIN 15.8 g/dl (13.5-18.0); LYMPH # 1.3 (1.2-3.4); LYMPH % 8.8 % (20.0-51.0); MEAN CELL VOLUME 86 fl (80.0-100.0); MEAN CORPUSCULAR HEMOGLOBIN 28 pg (27.0-31.0); MEAN CORPUSCULAR HGB CONC 33 g/dl (33.0-37.0); MEAN PLATELET VOLUME 9.7 fl (7.4-10.4); MONO # 1.4 (0.1-0.6); MONO % 9.6 % (1.7-9.3); PLATELET COUNT 166 K/mm3 (130-400); RED BLOOD COUNT 5.57 M/mm3 (4.20-5.60)
[2020-10-21 06:44] LABS: CREATININE, serum 1.08 (0.66-1.25); MAGNESIUM 2.1 mg/dL (1.6-2.3)
[2020-10-21 07:53] VITALS: BP 130/73; PULSE 74; TEMP 98
--- NOTE | 2020-10-21 11:25 | NUR ---
Assessment completed, alert/oriented, vital signs stable, reporting pain moderate 5/10 and the [place] is helping take the "edge off", right stump is still warm/red/swollen, small amount of serosanguinous drainage noted, intermittent low grade fevers overnight but afebrile today so far, heart RRR, lungS CTA/ no resp.difficulty noted, IV abx infusing, he is tolerating PO intake without N/V but does not have much of an appetite, blood sugars are controlled, denies other needs at this time
[2020-10-21 11:31] VITALS: BP 114/63; PULSE 74; TEMP 98.2
--- NOTE | 2020-10-21 11:41 | NUR ---
Plan is to return home with spouse Deion . SW met with patient about care. Patient reports that his PCP is Dr. Yun and Dr. Cates. Patient idnciated that he obtains medications from [facility]. Patient shares that he uses prothetics and right now they are causing him pain. Patient indicated that it is a wound spot and wants to be able to manage it if needing would care. Patient shares that he has a CPAP machine that he uses nightly. Patient inidcated he does not have additional concerns at this time. Educated on suports.
[2020-10-21 16:17] VITALS: BP 122/63; PULSE 82; TEMP 99.7
[2020-10-21 20:30] VITALS: BP 123/61; PULSE 77; TEMP 98.6
[2020-10-21 23:58] VITALS: BP 131/72; PULSE 73; TEMP 98.9
[2020-10-22 04:28] VITALS: BP 133/74; PULSE 74; TEMP 98.7
[2020-10-22 07:31] VITALS: BP 147/67; PULSE 87; TEMP 97.5
--- NOTE | 2020-10-22 09:53 | NUR ---
Pt napping upon entry, easily awakened, has C/O headache, PRN tylenol given. right stump warmer to the touch than left, open to air, scabbed on lower side, no drainage noted. Shift assessments complete, left Pt in bed, lowest position, call light in reach.
--- NOTE | 2020-10-22 10:34 | NUR ---
Initial visit; Patient thanked Motion Picture Cameraman for looking in on him and offering God's blessings.
[2020-10-22 11:00] VITALS: BP 152/64; PULSE 80; TEMP 99.1
[2020-10-22 15:39] VITALS: BP 136/59; PULSE 72; TEMP 99
[2020-10-22 19:51] VITALS: BP 142/66; PULSE 83; TEMP 99.7
--- NOTE | 2020-10-22 22:38 | NUR ---
pt has been having headache.Tylenol was given. Will continue to monitor.
[2020-10-22 23:41] VITALS: BP 129/97; PULSE 103; TEMP 98.1
[2020-10-23] VITALS (7 sets, daily range): BP systolic 122–139; BP diastolic 59–75; PULSE 75–83; TEMP 98.6–100.2
[2020-10-23 06:54] LABS: HEMATOCRIT 42.7 % (42.0-52.0); HEMOGLOBIN 13.9 g/dl (13.5-18.0); MEAN CELL VOLUME 85 fl (80.0-100.0); MEAN CORPUSCULAR HEMOGLOBIN 28 pg (27.0-31.0); MEAN CORPUSCULAR HGB CONC 33 g/dl (33.0-37.0); MEAN PLATELET VOLUME 9.5 fl (7.4-10.4); PLATELET COUNT 187 K/mm3 (130-400); RED BLOOD COUNT 5.01 M/mm3 (4.20-5.60); REDCELL DISTRIBUTION WIDTH-CV 16.6 % (11.5-14.5)
[2020-10-23 08:03] LABS: BASO % 0.3 % (0.0-2.0); EOS # 0.1 (0.0-0.7); EOS % 0.6 % (0-4.0); GRAN # 7.5 (1.4-6.5); GRAN % 76.3 % (42.2-75.2); LYMPH % 10.5 % (20.0-51.0); MONO # 1.1 (0.1-0.6); MONO % 11.2 % (1.7-9.3)
--- NOTE | 2020-10-23 08:55 | NUR ---
Pt sleeping upon entry, easily awakened. No C/O pain at this time. Shift assessment complete, left Pt call light in reach, bed in lowest position.
--- NOTE | 2020-10-23 23:33 | NUR ---
Pt had a headache when i came in. Tylenol was given. Pain is now rated 0/10.Will continue to monitor.
[2020-10-24] VITALS (7 sets, daily range): BP systolic 122–145; BP diastolic 61–67; PULSE 70–87; TEMP 98–99
--- NOTE | 2020-10-24 06:40 | NUR ---
awake and watching TV, bedside shift report received from PAULINE Mendoza
[2020-10-24 06:50] LABS: BASO % 0.3 % (0.0-2.0); EOS # 0.1 (0.0-0.7); EOS % 0.7 % (0-4.0); GRAN # 7.2 (1.4-6.5); GRAN % 74.1 % (42.2-75.2); HEMATOCRIT 42.3 % (42.0-52.0); HEMOGLOBIN 13.6 g/dl (13.5-18.0); LYMPH # 1.2 (1.2-3.4); MEAN CELL VOLUME 86 fl (80.0-100.0); MEAN CORPUSCULAR HEMOGLOBIN 28 pg (27.0-31.0); MEAN CORPUSCULAR HGB CONC 32 g/dl (33.0-37.0); MEAN PLATELET VOLUME 9.4 fl (7.4-10.4); MONO # 1.1 (0.1-0.6); MONO % 11.5 % (1.7-9.3); PLATELET COUNT 210 K/mm3 (130-400); RED BLOOD COUNT 4.94 M/mm3 (4.20-5.60); REDCELL DISTRIBUTION WIDTH-CV 16.8 % (11.5-14.5)
[2020-10-24 07:02] LABS: CALCIUM 9.1 mg/dL (8.4-10.2); CREATININE, serum 0.93 (0.66-1.25); POTASSIUM 3.7 mmol/L (3.4-5.0)
[2020-10-24 07:34] LABS: C-REACTIVE PROTEIN 23.7 mg/dL (0.0-0.9)
--- NOTE | 2020-10-24 08:30 | NUR ---
sitting up in bed ready to eat breakfast, full assessment completed, see interventions for further info, has 3cm scabbed dry area to right stump, it is dry and without drainage, right stump is warm to touch and swollen, he denies pain or needs, breakfast here
--- NOTE | 2020-10-24 09:56 | NUR ---
occupational therapy was in and worked with patient and he is sitting up in chair
--- NOTE | 2020-10-24 13:07 | NUR ---
c/o pain to right stump 10/27, medicated with hydrocodone 5mg 1 tab
--- NOTE | 2020-10-24 13:20 | NUR ---
telemetry discontinued, tech notified
--- NOTE | 2020-10-24 14:16 | NUR ---
SW met with the patient to introduce oneself and to review d/c plan. The patient states that he still plans on returning home with his spouse upon discharge. He states that he will be at home alone during the day and that his bathroom is upstairs. He is concerned about how to get up the bathroom. SW discussed the option of getting a bedside commode for during the day and where he can obtain one. The patient verbalized understanding and reports that he will start looking at getting one. He had no other questions or concerns for SW at this time. SW to follow as needed. *Discharge plan: home with spouse*
--- NOTE | 2020-10-24 14:30 | NUR ---
asked to have Temp checked he is feeling like he is getting a fever, it is 98.3 at this time, will monitor
--- NOTE | 2020-10-24 16:30 | NUR ---
appears to be sleeping, then radiology in to take patient down for MRI
--- NOTE | 2020-10-24 16:55 | NUR ---
returned from MRI per cart, assisted off cart and over onto bed, zosyn restarted and he will order supper
--- NOTE | 2020-10-24 17:37 | NUR ---
remains down having MRI
--- NOTE | 2020-10-24 18:53 | NUR ---
bedside shift report given to PAULINE Nuñez
[2020-10-25] VITALS (12 sets, daily range): BP systolic 108–145; BP diastolic 55–79; PULSE 72–92; TEMP 97.6–99.8
[2020-10-25 01:42] LABS: COLLECTION METHOD IN
[2020-10-25 01:53] LABS: PH 5 (5-8); SQUAMOUS EPITHELIAL 0-2 /hpf; URINE APPEARANCE Clear; URINE BACTERIA None Seen /hpf; URINE BILIRUBIN Negative (NEGATIVE); URINE BLOOD Negative (NEGATIVE); URINE COLOR Yellow; URINE GLUCOSE 3+ (NEGATIVE); URINE KETONE Negative (NEGATIVE); URINE LEUKOCYTE ESTERASE Negative (NEGATIVE); URINE NITRATE Negative (NEGATIVE); URINE PROTEIN(semi-quant) Negative (NEGATIVE); URINE RBC 0-2 /hpf; URINE UROBILINOGEN Negative (NEGATIVE)
[2020-10-25 06:51] LABS: HEMATOCRIT 42.4 % (42.0-52.0); HEMOGLOBIN 13.7 g/dl (13.5-18.0); MEAN CELL VOLUME 86 fl (80.0-100.0); MEAN CORPUSCULAR HEMOGLOBIN 28 pg (27.0-31.0); MEAN CORPUSCULAR HGB CONC 32 g/dl (33.0-37.0); MEAN PLATELET VOLUME 9.6 fl (7.4-10.4); PLATELET COUNT 224 K/mm3 (130-400); RED BLOOD COUNT 4.93 M/mm3 (4.20-5.60); REDCELL DISTRIBUTION WIDTH-CV 16.7 % (11.5-14.5)
[2020-10-25 06:57] LABS: CALCIUM 9.1 mg/dL (8.4-10.2); CREATININE, serum 0.91 (0.66-1.25); POTASSIUM 3.8 mmol/L (3.4-5.0)
[2020-10-25 07:09] LABS: C-REACTIVE PROTEIN 18.2 mg/dL (0.0-0.9)
[2020-10-25 07:24] LABS: BAND 16 % (0-10); EOSINOPHIL 1 % (0-4); LYMPHOCYTE 18 % (20.0-51.0); METAMYELOCYTE 3 % (0-0); NEUTROPHILS 55 % (42.0-75.2); PLATELET ESTIMATE NORMAL (NORMAL)
--- NOTE | 2020-10-25 10:50 | NUR ---
Assessment completed, alert/oriented, vital signs stable/afebrile, reports stump pain is "better than it has been", stump still warm and swollen, redness appears improved, no drainage noted, heart RRR/ distal pulses are palapble, lungsCTA/ no resp.difficulty noted, patient had sanchez placed for penile sore and groin excoriation/redness, UA sent for analysis, appetite improved, denies needs, jean paul lcontinue to monitor
--- NOTE | 2020-10-25 17:30 | NUR ---
Patient going down to OR for right stump abcess debridment at this time, consent signed, pre-op IVF infusing
--- NOTE | 2020-10-25 18:30 | NUR ---
Patient is in surgery at this time for debridement of R stump abcess.
--- NOTE | 2020-10-25 19:50 | NUR ---
Returned to room, awake, alert, oriented x 3, diaphoretic, denies pain, dressing to R lower leg/stump c/d/i, food offered, R lower ext elevated on pillow, sanchez draining per gravity, VS stable
[2020-10-26] VITALS (8 sets, daily range): BP systolic 127–153; BP diastolic 60–82; PULSE 63–88; TEMP 97–98.3
--- NOTE | 2020-10-26 00:53 | NUR ---
blood sugar is 403, call placed to Hollie Padilla see new orders
[2020-10-26 10:02] LABS: HEMATOCRIT 43.6 % (42.0-52.0); MEAN CELL VOLUME 86 fl (80.0-100.0); MEAN CORPUSCULAR HEMOGLOBIN 28 pg (27.0-31.0); MEAN CORPUSCULAR HGB CONC 32 g/dl (33.0-37.0); MEAN PLATELET VOLUME 9.2 fl (7.4-10.4); PLATELET COUNT 258 K/mm3 (130-400); RED BLOOD COUNT 5.09 M/mm3 (4.20-5.60); REDCELL DISTRIBUTION WIDTH-CV 16.2 % (11.5-14.5)
[2020-10-26 10:11] LABS: CALCIUM 8.9 mg/dL (8.4-10.2); CREATININE, serum 0.96 (0.66-1.25); POTASSIUM 4.3 mmol/L (3.4-5.0)
--- NOTE | 2020-10-26 10:11 | NUR ---
Assessment completed, alert/oriented, vital signs stable/ afebrile, reports pain is well controlled at this time, right stump dressing is intact per Ortho, plan is for repeatnd irrigation and debridment of right stump wound 10/27/@0730, patient is aware of plan of care and is agreeable, blood sugars have been running higere sen surgery last night, OT has helped him get up to the recliner, denies other needs at this time, will continue to monitor
[2020-10-26 10:19] LABS: ANISOCYTOSIS 2+; HYPOCHROMIA 2+; LYMPHOCYTE 8 % (20.0-51.0); MYELOCYTE 3 % (0-0); NEUTROPHILS 86 % (42.0-75.2); NUCLEATED RED BLOOD CELL 1 (0-6); PLATELET ESTIMATE NORMAL (NORMAL)
--- NOTE | 2020-10-26 13:08 | NUR ---
Ortho plans on taking the patient back to the OR this weekend for a second I&D. SW to follow as needed.
--- NOTE | 2020-10-26 21:40 | NUR ---
has been good. Pain rated 0/10 after morphine and narco were given. Vss. Will continue to monitor.
[2020-10-27] VITALS (11 sets, daily range): BP systolic 108–133; BP diastolic 55–71; PULSE 61–77; TEMP 97–99.1
[2020-10-27 07:01] LABS: HEMATOCRIT 39.1 % (42.0-52.0); HEMOGLOBIN 12.1 g/dl (13.5-18.0); MEAN CELL VOLUME 87 fl (80.0-100.0); MEAN CORPUSCULAR HEMOGLOBIN 27 pg (27.0-31.0); MEAN CORPUSCULAR HGB CONC 31 g/dl (33.0-37.0); MEAN PLATELET VOLUME 9.5 fl (7.4-10.4); PLATELET COUNT 256 K/mm3 (130-400); RED BLOOD COUNT 4.48 M/mm3 (4.20-5.60); REDCELL DISTRIBUTION WIDTH-CV 16.5 % (11.5-14.5)
--- NOTE | 2020-10-27 07:02 | NUR ---
Pt off unit for I&D of RLE wound at this time.
[2020-10-27 07:08] LABS: CALCIUM 8.9 mg/dL (8.4-10.2); CREATININE, serum 0.92 (0.66-1.25); POTASSIUM 3.7 mmol/L (3.4-5.0)
--- NOTE | 2020-10-27 09:00 | NUR ---
Shift assessment complete. Pt sitting up in bed eating breakfast. Had I&D to right stump wound this morning. Reporting moderate throbbing pain. [place] given per orders. Vitals stable. Vanc trough due this AM, awaiting results prior to administration. Denies needs at this time. Continuing to monitor.
[2020-10-27 09:20] LABS: BAND 5 % (0-10); EOSINOPHIL 1 % (0-4); LYMPHOCYTE 31 % (20.0-51.0); METAMYELOCYTE 3 % (0-0); MYELOCYTE 1 % (0-0); NEUTROPHILS 50 % (42.0-75.2); PLATELET ESTIMATE NORMAL (NORMAL)
[2020-10-27 09:21] LABS: ANISOCYTOSIS 1+; HYPOCHROMIA 1+
--- NOTE | 2020-10-27 22:44 | NUR ---
Pt has been good.Vss. Narco was given for pain rated 5/10. will continue to monitor.
[2020-10-28] VITALS (7 sets, daily range): BP systolic 106–134; BP diastolic 56–67; PULSE 51–73; TEMP 97.5–98.7
[2020-10-28 08:09] LABS: HEMATOCRIT 39.8 % (42.0-52.0); HEMOGLOBIN 12.4 g/dl (13.5-18.0); MEAN CELL VOLUME 89 fl (80.0-100.0); MEAN CORPUSCULAR HEMOGLOBIN 28 pg (27.0-31.0); MEAN CORPUSCULAR HGB CONC 31 g/dl (33.0-37.0); MEAN PLATELET VOLUME 9.4 fl (7.4-10.4); PLATELET COUNT 255 K/mm3 (130-400); RED BLOOD COUNT 4.48 M/mm3 (4.20-5.60); REDCELL DISTRIBUTION WIDTH-CV 16.6 % (11.5-14.5)
[2020-10-28 08:20] LABS: CALCIUM 8.8 mg/dL (8.4-10.2); CREATININE, serum 0.89 (0.66-1.25); POTASSIUM 3.7 mmol/L (3.4-5.0)
--- NOTE | 2020-10-28 09:30 | NUR ---
Report received from PAULINE Cope. Pt in bed resting, assessment charted. Pt denies any pain at this time and is feeling very well today in comparison to yesterday. REsting well. Reed draining copious amounts of nahum clear urine. R stump is draining, will reinforce dressing. L A/C int. Will continue to monitor.
--- NOTE | 2020-10-28 18:12 | NUR ---
Pt has done very well today, great urine output, large stool outputx1, 1 PRN norco provided per request. PT sitting up, anticipating surgery tomorrow, resting between disturbances, no further drainage on R BKA since reinforcing this shift. Will give bedside shift report to nightshift nurse who will resume care.
--- NOTE | 2020-10-28 22:17 | NUR ---
Pt has been good.Pain rated 0/10.Pt will be NPO after minight for a procedure tomorrow. Will continue to monitor.
[2020-10-29] VITALS (10 sets, daily range): BP systolic 113–135; BP diastolic 54–80; PULSE 57–78; TEMP 98.1–98.8
[2020-10-29 06:24] LABS: HEMATOCRIT 40.1 % (42.0-52.0); HEMOGLOBIN 12.6 g/dl (13.5-18.0)
--- NOTE | 2020-10-29 08:54 | NUR ---
Assessment completed, alert/oriented, vital signs stable and afebrile, reports pain is mild and controlled this morning, heart RRR, lungs CTA/ no resp.difficulty, encouraging IS uses while awake and patient is compliant, right lower BKA stump is dressed and dressing is C/D/I, scheduled for 3rd Irrigation/debridement today, he is NPO, blood sugars are controlled/ gave half his long acting insulin dose as he is NPO for surgery/ jean paul lcontinue to monitor,other morning meds given, he denies other needs at this time
--- NOTE | 2020-10-29 12:15 | NUR ---
Patient going down to OR at this time
--- NOTE | 2020-10-29 16:00 | NUR ---
Patient arrived back to room 352 from PACU at this time, alert/oriented, vital signs stable, pain is controlled at this time, o2 sats stable on 2 L., right stump dressing C/D/I, will continue to monitor
--- NOTE | 2020-10-29 20:00 | NUR ---
PATIENT IS A&O. VSS. C/O PAIN IN RLE RATED AT 6/10. GAVE PRN NORCO, ONE TAB WITH HS MEDS. RLE STRUMP DRESSING IS CD&I WITH ACEWRAP AND IS ELEVATED ON PILLOW. LLE HAS ALSO BEEN PREVIOUSLY AMPUTATED AND COMPLETELY HEELED. GARCIA TO DD WITH MOD AMOUNTS OF DOMINIQUE URINE WITH SEDIMENT. IV ABX INFUSING INTO LEFT AC IV VIA PUMP. PATIENT ON CONTACT FOR MRSA. NO C/O N/V. EVENING BS WAS 125. INSULIN GIVEN PER ORDERS. HEAD TO TOE ASSESSMENT COMPLETE. NO OTHER NEEDS AT THIS TIME. CALL LIGHT IN REACH.
[2020-10-30 00:41] VITALS: BP 120/58; PULSE 84; TEMP 97.8
[2020-10-30 04:45] VITALS: BP 127/62; PULSE 84; TEMP 97.6
[2020-10-30 07:16] LABS: HEMOGLOBIN 11.6 g/dl (13.5-18.0); MEAN CELL VOLUME 89 fl (80.0-100.0); MEAN CORPUSCULAR HEMOGLOBIN 28 pg (27.0-31.0); MEAN CORPUSCULAR HGB CONC 32 g/dl (33.0-37.0); MEAN PLATELET VOLUME 9.7 fl (7.4-10.4); PLATELET COUNT 278 K/mm3 (130-400); REDCELL DISTRIBUTION WIDTH-CV 17.1 % (11.5-14.5)
[2020-10-30 07:24] LABS: CALCIUM 8.4 mg/dL (8.4-10.2); CREATININE, serum 0.95 (0.66-1.25)
[2020-10-30 07:32] LABS: HEMATOCRIT 36.5 % (42.0-52.0)
[2020-10-30 07:54] VITALS: BP 115/64; PULSE 61; TEMP 98.4
--- NOTE | 2020-10-30 09:00 | NUR ---
Assessment completed, alert/oriented, vital signs stable, reports pain is controlled this morning, right stump dressing is C/D/I, heart RRR, lungs CTA/ no resp.difficulty and encouraging IS use every 1-2 hours, left AC INT went bad/ restarted 22G INT to right forearm, Vanco infusing at this time, sanchez patent/ patient stated catheter starting to get uncomfortable/ we will discuss with hospitalist about removing cath today, he is sitting up eating breakfast and will continue to monitor
[2020-10-30 10:02] LABS: ANISOCYTOSIS 1+; BAND 7 % (0-10); EOSINOPHIL 1 % (0-4); LYMPHOCYTE 16 % (20.0-51.0); METAMYELOCYTE 1 % (0-0); NEUTROPHILS 68 % (42.0-75.2); PLATELET ESTIMATE NORMAL (NORMAL)
[2020-10-30 10:03] LABS: HYPOCHROMIA 1+
[2020-10-30 12:10] VITALS: BP 130/62; PULSE 64; TEMP 98.1
--- NOTE | 2020-10-30 15:08 | NUR ---
ID is recommending two weeks of IV antibiotics. SILVERIO met with the patient to discuss the options of home with IV antibiotics and home health, the [facility], or going to a SNF/[facility]. 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 He reports that he would prefer to try and go to IPR or a local facility. His first preference is IPR and then he was open for SW to send referrals to the local facilities. The patient reports that if they are unable to take, then his second preference to get the IV antibiotics would be at home with home health. He reports that he does not have reliable transportation to go to the [facility]. SILVERIO consulted I[facility] Director, Misty. The patient has [employer] as his primary insurance. Misty is submitting for auth. SILVERIO contacted and faxed a referral to [facility] and [facility]. Awaiting screens.
[2020-10-30 16:50] VITALS: BP 115/53; PULSE 65; TEMP 98.5
[2020-10-30 20:33] VITALS: BP 131/56; PULSE 70; TEMP 98.6
--- NOTE | 2020-10-30 23:21 | NUR ---
Pt has been good. Pain rated 5/10. Narco was given. Will continue to monitor.
[2020-10-31 00:10] VITALS: BP 107/55; PULSE 61; TEMP 98.2
[2020-10-31 04:50] VITALS: BP 121/67; PULSE 60; TEMP 97.6
[2020-10-31 07:16] LABS: HEMATOCRIT 37.8 % (42.0-52.0); HEMOGLOBIN 11.8 g/dl (13.5-18.0); MEAN CELL VOLUME 90 fl (80.0-100.0); MEAN CORPUSCULAR HEMOGLOBIN 28 pg (27.0-31.0); MEAN CORPUSCULAR HGB CONC 31 g/dl (33.0-37.0); MEAN PLATELET VOLUME 9.5 fl (7.4-10.4); PLATELET COUNT 306 K/mm3 (130-400); RED BLOOD COUNT 4.22 M/mm3 (4.20-5.60); REDCELL DISTRIBUTION WIDTH-CV 17.1 % (11.5-14.5)
[2020-10-31 07:29] LABS: CALCIUM 8.6 mg/dL (8.4-10.2)
--- NOTE | 2020-10-31 08:00 | NUR ---
Patient is resting in bed, alert and oriented x 4, vital signs stable. No nausea or vomiting. Reports pain of 5 out of 10, hydrocodone provided. His pain is in the right lower knee. Left knee without problems. BRENDONnebel has bulky bandage, unable to see. Medications and antibiotic given. No further needs at this time. Call light within reach.
[2020-10-31 08:11] LABS: ANISOCYTOSIS 1+; BAND 5 % (0-10); HYPOCHROMIA 2+; LYMPHOCYTE 17 % (20.0-51.0); NEUTROPHILS 72 % (42.0-75.2); NUCLEATED RED BLOOD CELL 1 (0-6)
[2020-10-31 08:12] LABS: PLATELET ESTIMATE NORMAL (NORMAL); POIKILOCYTOSIS 1+; STOMATOCYTE 1+
[2020-10-31 08:29] VITALS: BP 123/64; PULSE 66; TEMP 98.3
--- NOTE | 2020-10-31 11:26 | NUR ---
THIS RN WENT TO THE PATIENTS ROOM, AND THE PATIENT HAS A COMPLAINT OF PAIN AT THIS TIME. IT HAS ONLY BEEN 2 HOURS SINCE HIS LAST PAIN MEDICATION, HOWEVER HE HAS STATED "IT WAS GIVEN, BUT IT DID NOT DO ANYTHING FOR MY PAIN". THIS RN REMINDED HIM TO LET US KNOW SOONER BECAUSE WE CAN DO SOMETHING ABOUT IT, HOWEVER, IF IT'S BEEN 2 HOURS, WE WILL HAVE TO WAIT ANOTHER 2 HOURS FOR HIS PAIN MEDICATIONS ACCORDING TO THE ORDERS PER THE DOCTOR. THE PATIENT IS UNDERSTANDING. THE ORIENTING NURSERADHA IS GOING TO OFFER THE PATIENT TYLENOL IN THE MEAN TIME. NO OTHER CONCERNS AT THIS TIME.
[2020-10-31 12:25] VITALS: BP 109/64; PULSE 62; TEMP 98.4
--- NOTE | 2020-10-31 13:50 | NUR ---
Misty, I[facility] Director, reports that she received auth from the patient's insurance and that she is able to accept the patient.
[2020-10-31] MEDS ORDERED: ZESTRIL 5MG5 MG PO (16:28)
[2020-10-31] MEDS ORDERED: PERCOCET 325 MG1 TA2 PO (16:28)
[2020-10-31] MEDS ORDERED: COLACE 100100 MG/CAP PO (16:29)
--- NOTE | 2020-10-31 16:29 | NUR ---
The patient is to discharge today, 10/31, to [facility]. No additional needs at this time.
[2020-10-31] MEDS ORDERED: VANCOCIN HCL1 GM IV (16:38)
[2020-10-31 16:41] VITALS: BP 119/58; PULSE 59; TEMP 98.5
[2020-10-31] MEDS ORDERED: DESENEX TP (16:43)
[2020-10-31] MEDS ORDERED: LEVEMIR100 U/ML SQ (16:43)
[2020-10-31] MEDS ORDERED: NOVOLOG 100U100 U/M1 SQ (16:44)
[2020-10-31 18:23] VITALS: BP 119/58; PULSE 59; TEMP 98.5
== END 2020-10-31 19:14 | DRG 488 ==
LOC: COL.ER 20:40 → MEDICAL 21:47
PROVIDERS: Internal Medicine; Nurse Practitioner Family; Nurse Practitioner Primary Care; Orthopaedic Surgery; Orthopaedic Surgery Sports Medicine; Physician Assistant; Student in an Organized Health Care Education/Training Program; ADMIT Internal Medicine
PROC: 0SBC0ZZ Excision of Right Knee Joint, Open Approach (ICD-10-PCS; principal; 2020-10-25 16:00)
PROC: 02HV33Z Insertion of Infusion Device into Superior Vena Cava, Percutaneous Approach (ICD-10-PCS; 2020-10-31)
DX: T87.43 Infection of amputation stump, right lower extremity (principal); A41.9 Sepsis, unspecified organism; L03.115 Cellulitis of right lower limb; I50.22 Chronic systolic (congestive) heart failure; Z68.42 Body mass index [BMI] 45.0-49.9, adult; T87.81 Dehiscence of amputation stump; Y83.8 Other surgical procedures as the cause of abnormal reaction of the patient, or of later complication, without mention of misadventure at the time of the procedure; E11.40 Type 2 diabetes mellitus with diabetic neuropathy, unspecified; I25.10 Atherosclerotic heart disease of native coronary artery without angina pectoris; I11.0 Hypertensive heart disease with heart failure; G47.33 Obstructive sleep apnea (adult) (pediatric); F31.9 Bipolar disorder, unspecified; F41.9 Anxiety disorder, unspecified; L30.4 Erythema intertrigo; E66.9 Obesity, unspecified; J98.4 Other disorders of lung; L30.2 Cutaneous autosensitization; S30.812A Abrasion of penis, initial encounter; I27.20 Pulmonary hypertension, unspecified; Z98.84 Bariatric surgery status; Z86.14 Personal history of Methicillin resistant Staphylococcus aureus infection; Z89.511 Acquired absence of right leg below knee; Z95.1 Presence of aortocoronary bypass graft
CPT/HCPCS: 99223-AI; 99232-AI; 99233-AI; 99239; A9284; A9585; C1751; J0690; J1100; J1170; J1650; J1815; J1885; J2270; J2405; J2543; J2704; J3010; J3370; J7030; J7040; J7050

== ENCOUNTER 2020-10-31 15:50 | Inpatient (IN) | payer BC, MEDICARE ==
[~2020-10-31] VITALS: Ht 175.3 cm; Wt 138.3 kg
[~2020-10-31 15:50] MED LIST changes: +ADMELOG SO100 UNIT/1 SQ; +LUNESTA3 MG PO; +SEGLUROMET 7.51 EAC1 PO; +TAZTIA180 PO; +TOUJEO MAX300 UNIT/1 SQ; +WELLBUTRIN SR150 M1 PO
[2020-10-31] MEDS ORDERED: PERCOCET 325 MG1 TA2 PO (16:28)
[2020-10-31] MEDS ORDERED: ZESTRIL 5MG5 MG PO (16:28)
[2020-10-31] MEDS ORDERED: COLACE 100100 MG/CAP PO (16:29)
[2020-10-31] MEDS ORDERED: VANCOCIN HCL1 GM IV (16:38)
[2020-10-31] MEDS ORDERED: DESENEX TP (16:43)
[2020-10-31] MEDS ORDERED: LEVEMIR100 U/ML SQ (16:43)
[2020-10-31] MEDS ORDERED: NOVOLOG 100U100 U/M1 SQ (16:44)
--- NOTE | 2020-10-31 19:00 | NUR ---
PT ADMITTED TO ROOM 335 FROM MEDICAL PER BED. PLACED IN ISOLATION FOR MRSA. INSTRUCTED ON NEED TO GOWN AND GLOVE PER ISOLATION PRECAUTIONS. PAIN TO RLE TOLERABLE AT LEVEL 3/10 AT THIS TIME. DRSG TO RT STUMP CDI.
[2020-10-31 20:23] VITALS: BP 136/57; PULSE 65; TEMP 98.3
[2020-11-01 04:11] VITALS: BP 140/60; PULSE 84; TEMP 97.6
--- NOTE | 2020-11-01 11:37 | NUR ---
Patient attended morning therapies. He is currently resting in wheelchair call light in reach and alarm set. Will continue to monitor.
[2020-11-01 16:43] VITALS: BP 114/49; PULSE 52; TEMP 997.6
[2020-11-01 18:41] VITALS: BP 112/57; PULSE 59; TEMP 97.7
--- NOTE | 2020-11-01 20:04 | NUR ---
Patient's blood sugars were low this shift. Did not require any insulins and was given orange juice this morning with BS less then 70. He continues to have a rash on his back, but he reports that he doesn't feel that it is from his antibiotic. He thinks it is from sweating when lying in bed. This nurse removed the bed pads and placed a draw sheet over the bed to try to decrease sweating. Dressing was changed to patient's right below the knee amputation by Dr. Williamson. New orders received to have george removed to incision in 2 to 3 weeks. Change dressing as needed using stockinet and gauze. Can use maribel prep remover to get rid of orange coloring on his right leg. The dressings to the right stump required to be changed two times this afternoon due to bloody drainage. Stump is currently secured with gauze over incision, kerlix wrap, ABD pads, more kerlix wrap and then dionicio bandage with stockinet over the dressing. Patient tolerated dressing change with no discomfort reported. Will continue to monitor.
--- NOTE | 2020-11-01 21:00 | NUR ---
PT RESTING IN BED. PAIN CONTROLLED AT THIS TIME. SEE COMPLETED ASSESSMENT. CALL LIGHT IN REACH. BED ALARM SET. CONTINUED ISOLATION FOR MRSA.
--- NOTE | 2020-11-02 03:30 | NUR ---
VANCOMYCIN INFUSION COMPLETE. PT CLAMMY AND COOL TO TOUCH. AWAKES EASILY. CHECKED BLOODSUGAR. 48. GAVE OJ AT THIS TIME.
--- NOTE | 2020-11-02 03:47 | NUR ---
BLOOD SUGAR NOW 61.
[2020-11-02 04:16] VITALS: BP 99/53; PULSE 50; TEMP 97.5
--- NOTE | 2020-11-02 04:16 | NUR ---
BLOOD SUGAR 100 AT THIS RUBIN ASYMPTOMATIC.
--- NOTE | 2020-11-02 10:10 | NUR ---
Pt assessment complete. Pt is sitting up in the wheelchair upon entry, he is A/O x4. His breathing is even and unlabored on RA. Pt denies SOB. No N/V. Currently reports low back pain 09/27, PRN pain medication administered. Pt states there was drainage to R stump in PT, bandage to be changed later today d/t drainage. Pt has no further needs at this time. Call light within reach.
[2020-11-02 10:16] VITALS: BP 132/60
--- NOTE | 2020-11-02 10:50 | NUR ---
Met w/ pt to complete SW assessment. Pt lives w/ , who works, in a 2 story townhouse w/ 4 steps w/ handrail on left. The bedrooms & bathroom are on 2nd floor which has flight of steps w/ bilateral handrails. The bathroom has a tub/shower combo w/ curtain & hand held shower head. The toliet is ADA height. Pt reported he was walking w/out a device, expect for his prothetics & independent w/ his self care & IADL's. Pt reports driving. Pharmacy: [facility] & reports he has no concerns or issues w/ affording his medications. He does have DPOA paperwork & should be on chart. Pt does have his own w/c, knee walker, & r/walker. He will need a bedside commode due to not being able to get to bathroom on 2nd floor. Did explain the rehab process & plan. Pt had no questions/concerns at this time about his rehab stay. Inquired about doing a family meeting on 11/05/20 @ 1:00 pm & he felt his would be able to do that via phone. Did SW will contine to work w/ pt during his stay to ensure d/c recommendations from the team, as plan is for him to return home.
--- NOTE | 2020-11-02 12:00 | NUR ---
Bandage to R stump changed, bloody drainage present. Slowly oozing blood. Edges well approximated. Non adherant gauze, ABD, Kirlex and Moose wrap placed. Pt reports pain to back has improved. No further needs.
[2020-11-02 16:44] VITALS: BP 118/57; PULSE 58; TEMP 97.8
--- NOTE | 2020-11-02 18:24 | NUR ---
Pt up in wheelchair most of the day. Intermittent pain to R stump. Dressing CDI at this time. Pt concerned of the swelling to R thigh. No redness or tenderness to area, states his pain is from the knee down. Discussed starting Lovenox tomorrow with him. Rash to back still present, reports this is less itchy. Desenex applied to assist in keeping the back dry. No further needs at this time. Call light within reach.
--- NOTE | 2020-11-02 21:30 | NUR ---
PATIENT IS CALM IN BED.DUE MEDS GIVEN.DENIES PAIN.SAFETY MEASURES IN PLACE.NO OTHER NEEDS AT THIS TIME.
--- NOTE | 2020-11-03 06:07 | NUR ---
PATIENT HAD A CALM NIGHT.INFORMED BY THE ELEVATOR CONSTRUCTOR HYDRAULIC THAT PATIENT AM BLOOD GLUCOSE CHECK 52.PATIENT OFFERED ORANGE JUICE.DID A RECHECK AFTER 15 MIN BLOOD SUGAR 82.PATIENT DENIES PAIN.SAFETY MEASURES MAINTAINED.NO OTHER NEEDS AT THIS TIME.
[2020-11-03 06:18] VITALS: BP 103/55; PULSE 58; TEMP 97.3
[2020-11-03 07:33] VITALS: PULSE 58; TEMP 97.3
[2020-11-03 07:34] VITALS: BP 103/52
--- NOTE | 2020-11-03 09:55 | NUR ---
Patient attending all therapies this morning.
--- NOTE | 2020-11-03 11:13 | NUR ---
Lab draw was completed for a trough level.
[2020-11-03 11:28] LABS: CREATININE, serum 1.07 (0.66-1.25)
[2020-11-03 12:20] VITALS: BP 114/59
--- NOTE | 2020-11-03 14:34 | NUR ---
Patient took a nap following lunch and upon wakening to use his urinal patient observed bloody drainage from his RBKA incision. This nurse removed old bloody drainage and applied new sterile gauze/ABD pad on incision and secured it with kerlix and compression dionicio wrap. Area around the incision was slightly warm, slightly red and had +1 edema. Right thigh has edema. Patient tolerated dressing change well. Patient communicated that last night he had received his Ruel nutrition drink, but that it was colored and tasted so bad that he almost vomited. He requested that he receive the plain Ruel with diet sprite. This was communicated to the kitchen staff. Patient currently resting in bed, call light in reach. Will continue to monitor.
[2020-11-03 15:25] VITALS: BP 122/55; PULSE 63; TEMP 97.8
[2020-11-04 06:18] VITALS: BP 128/67; PULSE 60; TEMP 98.1
--- NOTE | 2020-11-04 06:18 | NUR ---
RESTING QUIETLY/SLEEPING MOST OF NIGHT. RLE ELEVATED. ICE IN USE FOR PART OF THE SHIFT TO RLE. DRESSING/MARIA TO RLE CD&I. PT AFEBRILE. SOME EDEMA NOTED TO RLE.
--- NOTE | 2020-11-04 10:13 | NUR ---
Dressing was changed to patient's RBKA incision. Observed bloody drainage to incision. Dressing was removed and sterile gauze was applied over the area, ABD pad placed over that, secured with kerlix and dionicio wrap. Patient has swelling and some redness around the incision site and swelling to his right thigh. This will be communicated to ortho today. Compression dressing was placed from the stump to upper thigh. Patient tolerated well. Stump is elevated over two pillows. Will continue to monitor.
--- NOTE | 2020-11-04 10:19 | NUR ---
Call placed to Space Controller Hedy Taylor. Awaiting a return call.
--- NOTE | 2020-11-04 10:25 | NUR ---
Patient currently resting in bed, call light in reach and texting on his phone. Patient denies pain at this time. Will continue to monitor.
[2020-11-04 13:31] LABS: BASO % 0.5 % (0.0-2.0); EOS # 0.1 (0.0-0.7); EOS % 1.6 % (0-4.0); GRAN # 5.1 (1.4-6.5); GRAN % 63.9 % (42.2-75.2); HEMOGLOBIN 11.2 g/dl (13.5-18.0); LYMPH # 2.1 (1.2-3.4); LYMPH % 25.7 % (20.0-51.0); MEAN CELL VOLUME 89 fl (80.0-100.0); MEAN CORPUSCULAR HEMOGLOBIN 28 pg (27.0-31.0); MEAN CORPUSCULAR HGB CONC 31 g/dl (33.0-37.0); MEAN PLATELET VOLUME 9.3 fl (7.4-10.4); MONO # 0.6 (0.1-0.6); MONO % 7.3 % (1.7-9.3); PLATELET COUNT 367 K/mm3 (130-400); RED BLOOD COUNT 4.07 M/mm3 (4.20-5.60); REDCELL DISTRIBUTION WIDTH-CV 16.9 % (11.5-14.5)
[2020-11-04 13:33] LABS: HEMATOCRIT 36.2 % (42.0-52.0)
--- NOTE | 2020-11-04 14:57 | NUR ---
Received return call from Dr. Hedy Daniels and she ordered a CBC and agreed with the compression dressing from the end of the right leg stump to upper thigh to help with edema. Will continue to monitor.
[2020-11-04 15:17] VITALS: BP 122/63; PULSE 58; TEMP 98.2
--- NOTE | 2020-11-04 19:20 | NUR ---
RECEIVED CHANGE OF SHIFT REPORT FROM DAY SHIFT NURSE. PATIENT UP IN W/C WITH CHAIR ALARM ON, CALL LIGHT WITHIN REACH. DENIES ANY NEEDS AT TIME OF REPORT.
[2020-11-05 06:00] VITALS: BP 139/64; PULSE 54; TEMP 97.6
[2020-11-05 07:05] LABS: BASO % 0.4 % (0.0-2.0); EOS # 0.2 (0.0-0.7); GRAN # 4.7 (1.4-6.5); GRAN % 61.8 % (42.2-75.2); HEMATOCRIT 35.7 % (42.0-52.0); HEMOGLOBIN 11.2 g/dl (13.5-18.0); LYMPH # 1.9 (1.2-3.4); LYMPH % 25.3 % (20.0-51.0); MEAN CELL VOLUME 87 fl (80.0-100.0); MEAN CORPUSCULAR HEMOGLOBIN 27 pg (27.0-31.0); MEAN CORPUSCULAR HGB CONC 31 g/dl (33.0-37.0); MEAN PLATELET VOLUME 9.2 fl (7.4-10.4); MONO # 0.7 (0.1-0.6); MONO % 9.6 % (1.7-9.3); PLATELET COUNT 351 K/mm3 (130-400); RED BLOOD COUNT 4.09 M/mm3 (4.20-5.60)
[2020-11-05 07:12] LABS: ALBUMIN 3.6 gm/dL (3.5-5.0); BILIRUBIN,TOTAL 0.5 mg/dL (0.0-1.0); CALCIUM 9.2 mg/dL (8.4-10.2); CREATININE, serum 1.04 (0.66-1.25); POTASSIUM 3.7 mmol/L (3.4-5.0); TOTAL PROTEIN 7.3 gm/dL (6.4-8.2)
[2020-11-05 07:32] LABS: ERYTHROCYTE SEDIMENTATION RATE 71 mm/hr (0-30)
--- NOTE | 2020-11-05 07:40 | NUR ---
CHANGE OF SHIFT REPORT GIVEN TO DAY SHIFT NURSE, VANESA CARPENTER.
--- NOTE | 2020-11-05 09:45 | NUR ---
Contact [facility] & spoke w/ Jaqueline about pt needing IV antibiotic therapy upon d/c. Answered her questions & informed her of tentative d/c for 11/07/20. Faxed requested referral information.
--- NOTE | 2020-11-05 10:34 | NUR ---
Visited w/ pt about tentative d/c for 11/07/20. Informed him that SW had contact [place] for the IV antibiotic, which he was good w/. Talked to him about equipment & told him [facility] is not able to do bedside commodes or sliding boards. He is fine w/ using [facility]. Provided him a list of home health agencies & he choose [facility]. Inquired if there is anything else that he can think of or has questions about, which he did not at this time.
--- NOTE | 2020-11-05 11:20 | NUR ---
Patient alert and oriented, answers questions appropriately. See assessment. LLE with prosthesis in place. RLE with dressing CDI, changed per Dr Williamson this a.m. Patient questions dressing change protocol and to ensure other staff is aware of how Dr Williamson wants dressing to RLE to be changed, assured patient this information will be passed along during shift report. No other c/o at this time.
--- NOTE | 2020-11-05 11:21 | NUR ---
Contacted [facility] & spoke w/ Hailey. Referral made for nursing, PT/OT. Faxed requested information.
--- NOTE | 2020-11-05 12:15 | NUR ---
Follow-up; Visited briefly outside of patient's room. Patient states he is doing better and hopes to go home soon. He thanked Telemarketing Sales Representative for asking and wishing him well.
--- NOTE | 2020-11-05 13:05 | NUR ---
Conduected family meeting w/ pt & , Deion, via phone. Also present was PT, OT, & Granulating Machine Operator/SW. Team explained how pt has beend doing functionally & what they have been working on. Informed them of tentative d/c date for 11/07/20, pending the decision of ortho to do another I&D. Team have recommended home health PT/OT/nursing for IV antibiotic, sliding board, & bedside commode. They had a few questions which were answered by the team.
--- NOTE | 2020-11-05 14:06 | NUR ---
Pt had informed SW that he was wrong about the home health agency & wants to use [facility]. Contacted [facility] & cancelled referral. Attempted to contact [facility] but left a message regarding referral. Faxed referral information.
--- NOTE | 2020-11-05 16:07 | NUR ---
Admission QIM scores were reviewed by the team. Code of 2 chosen for toilet hygiene was determined by team discussion to be the most usual performance for this patient during the assessment period. Code of 88 chosen for toileting transfers was determined by team discussion to be the most usual performance for this patient during the assessment period. Code of 3 chosen for lower body dressing was determined by team discussion to be the most usual performance for this patient during the assessment period. Code of 6 chosen for sit to lying was determined by team discussion to be the most usual performance for this patient during the assessment period. Code of 6 chosen for lying to sitting on side of bed was determined by team discussion to be the most usual performance for this patient during the assessment period. Code of 3 for sit to stand was determined by team discussion to be the most usual performance for this patient during the assessment period. Code of 3 for chair/bed to chair transfers was determined by team discussion to be the most usual performance for this patient during the assessment period.--Misty Stevens,
[2020-11-05 16:44] VITALS: BP 145/75; PULSE 54; TEMP 97.3
--- NOTE | 2020-11-05 17:00 | NUR ---
Working to secure a transfer board & bariatric drop arm commode for pt prior to d/c. Pt's first choice was [facility] but they do not have equipment carry these items. Contacted [facility] & they do have a transfer board but did not have a bariatric drop arm commode & could not say when they could get one. Contacted [facility] & they also have a transfer board in stock but not a bariatric drop arm commode. However, they have one ordered & if it does not go to the person ordered for then they would be able to get it. Was informed they would be able to tell SW more on 11/06/20.
[2020-11-06 04:03] VITALS: BP 115/67; PULSE 52; TEMP 97.8
--- NOTE | 2020-11-06 04:30 | NUR ---
Patient is alert and oriented x4. He was sitting in his own wheelchair when RN did the assessment. His right BKA dressing was soah with blood and changed the dressings. Its covered with 4x4 ABD pad and stockinette. He transfer himself by the use of slider. RN just watch him do it himself. He complains of pain at 2100 and Coleman PRN was given. He slept after the meds and woke up without complains of pain. He said that he noticed his stump is more reddened. RN doesn't have basis of how it looks like before. RN said that he will pass it on so the Dr can see it. Continue to monitor.
--- NOTE | 2020-11-06 07:30 | NUR ---
THIS RN ASSESSED THE PT'S RIGHT STUMP. THERE IS A NOTABLE RASH, WITH REDNESS AND STREAKING. REWRAPPED WITH GAUZE AND MARIA WRAP, FIRM COMPRESSION THROUGHOUT. THE PATIENT IS PLEASED WITH THE WRAP, AND STATES THAT IT FEELS BETTER THAN IT HAS PREVIOUSLY. WILL CONTACT DR. MARINELLI REGARDING REDDNESS AND STREAKING. NO OTHER CONCERNS AT THIS TIME.
--- NOTE | 2020-11-06 10:31 | NUR ---
Provided pt update regarding d/c planning for possmellissay tomorrow, 11/07/20. Told him that [place] is on board & that his IV antibiotic will be covered at 100%. Told him that [facility] has been initiated. Explained the equipment issue, which he understood & was fine w/. He did not have any other questions or concerns at this time.
--- NOTE | 2020-11-06 10:58 | NUR ---
PT STATES THE RASH HAS EXTENDED UP THE LEG INTERMITTANTLY SINCE YESTERDAY AFTERNOON. DISCUSSED A PLAN WITH DR. MARINELLI WHO IS GOING TO COME ASSESS THE INCISION TOMORROW, AND THEN WILL DECIDE ON A WASH OUT SCHEDULED FOR THURSDAY. WILL WRAP WITH GAUZE AND AN MARIA WRAP WITH NO TENSION. NO OTHER CONCERNS AT THIS TIME.
--- NOTE | 2020-11-06 12:00 | NUR ---
Received call from Celena at [facility]. She informed SW that they could have a bariatric drop arm commode but would not have it until . She also confirmed they have the transfer board in stock. Faxed her the equipment order & requested information.
[2020-11-06 18:00] VITALS: BP 129/66; PULSE 67; TEMP 97.8
[2020-11-07 04:08] VITALS: BP 130/68; PULSE 77; TEMP 98
--- NOTE | 2020-11-07 04:30 | NUR ---
Patient transfer himself to bed after his company left last night. He did it himself with the slider. He is totally independent with his ADL's. He complains of pain in his right BKA and he got [place]. He requested if he can get Ambien too. 2meds given at same time. After a while Tech told RN that he complains of not feeling well. When I checked him he is snooring already. I hang his Vanco dose at 0200 and wake him up he just open his eyes and get back to sleep. He didn't even notice that meds is done. He slept most of the night. Continue to monitor.
--- NOTE | 2020-11-07 06:39 | NUR ---
Picc Line cap was changed this morning.
--- NOTE | 2020-11-07 08:00 | NUR ---
Patient in bed resting. Alert and oriented x 3. Assessment complete. Acewrap to LLE is CDI at this time. PICC line to JASS without complications. Denies further needs at this time.
--- NOTE | 2020-11-07 12:19 | NUR ---
Dressing change to LLE, continues to have bloody drainage from incision on stump. No additional needs at this time.
--- NOTE | 2020-11-07 14:54 | NUR ---
Contacted [facility] & spoke w/ Jaqueline, [facility] & spoke w/ Veronica, & [facility] & spoke w/ Isela regarding pt not d/c'ing today as planned but now tentatively set for 11/13/20. Spoke w/ pt & reviewed the team conference notes w/ him. Explained that the team has moved his d/c to 11/13/20, to work on getting the wound vac authorization & see how he does w/ mobility & self care w/ the wound vac. Also told him that SW has let [facility], [facility], & [facility] know of the d/c change. He did not have any questions about any of this. He did inquire about hospital having a notary & told him that SW would find out.
[2020-11-07 18:07] VITALS: BP 128/70; PULSE 56; TEMP 98.2
--- NOTE | 2020-11-07 18:12 | NUR ---
Patient doing well throughout the day, pain medication given x1 for LLE pain. Picc to JASS without complications; antibiotic infusing per orders. Patient will be NPO after midnight for procedure tomorrow. Denies further needs at this time. Will report off to security shift supervisor.
--- NOTE | 2020-11-07 18:15 | NUR ---
Notified Dr. Delgado about rash on back. No new orders at this time.
--- NOTE | 2020-11-07 19:00 | NUR ---
RECEIVED CHANGE OF SHIFT REPORT FROM DAY SHIFT NURSE. CONTACT ISOLATION CONTINUES PER ORDERS. PATIENT ANTICIPATES SURGERY TOMORROW AROUND NOON, VERBALIZES UNDERSTANDING OF NPO STATUS AFTER MIDNIGHT. DENIES ANY NEEDS OR CONCERNS.
[2020-11-08] VITALS (8 sets, daily range): BP systolic 114–144; BP diastolic 57–78; PULSE 53–62; TEMP 97.4–97.8
--- NOTE | 2020-11-08 07:31 | NUR ---
CHANGE OF SHIFT REPORT GIVEN TO DAY SHIFT NURSE, GEO CARPENTER.
--- NOTE | 2020-11-08 16:26 | NUR ---
Received report from [facility] this morning. Patient attended PT/OT this morning prior to his surgery. He was NPO after midnight. This nurse completed a dressing change to his right BKA stump. Area continues to have bloody drainage and redressed with gauze/ABD pad/Kerlix and Moose wrap prior to morning therapies. Patient went down for surgery at 12:00 PM. He received his dose of antibiotic prior to surgery. Awaiting his return to his room.
--- NOTE | 2020-11-08 16:29 | NUR ---
Received orders from AYDEE Davis for Dr. Williamson asking to hold the following meds this morning prior to surgery: Aspirin, Plavix and Lovenox. These were held as per order.
--- NOTE | 2020-11-08 19:30 | NUR ---
EVENING MEAL SERVED POST SURGERY. PT EATING WELL. PAIN CONTROLLED AT THIS TIME TO LEVEL 3/10 TO RT STUMP. ELEVATED RT STUMP ON PILLOWS. JONI DRAINAGE SYSTEM BLINKING GREEN AT THIS TIME. NO DRAIANGE IN TUBING NOTED. CALL LIGHT IN REACH. BED ALARM SET.
--- NOTE | 2020-11-08 22:07 | NUR ---
THE SINGLE USE NEGATIVE PRESSURE DRAIANGE SYSTEM TO RT STUMP WAS BLINKING GREEN BUT NOW BLINKING ORANGE. NOTIFIED CHARGE NURSE FOR ASSIST.
[2020-11-09 00:25] VITALS: BP 135/67; PULSE 57; TEMP 97.7
[2020-11-09 04:30] VITALS: BP 109/58; PULSE 49; TEMP 97.6
[2020-11-09 08:12] VITALS: BP 123/70; PULSE 58
--- NOTE | 2020-11-09 11:32 | NUR ---
Patient working with therapies this morning. Tolerated breakfast well.
--- NOTE | 2020-11-09 11:33 | NUR ---
Patient was seen by AYDEE Ramírez with Ortho this morning first thing. Patient's wound vac had started to blink yellow not green in the middle of the night. Ryan removed and discarded the wound vac as he felt that the device was not working properly. Dressing to right stump was changed. Area had a lot of red bloody drainage. Ryan applied xeroform over incision then used sterile gauze/ABD pad and secured with kerlix and dionicio wrap. Patient tolerated well. This dressing lasted until following patient's therapy with OT. Dressing had more bloody drainage and this nurse changed out dressing again. Area had more red bloody drainage and a clot of blood that was removed from the top of the incision. Dressing was changed and secured with dionicio wrap. Patient
--- NOTE | 2020-11-09 12:25 | NUR ---
Contact [facility] to inquire about the JONI wound vac. Eventually was given to Dr. Clay Davis' PA. Was informed that he had to take the dressing off this morning due to being saturated. He proceeded to explain that they are not sure what they are going to do regarding the stump at this time but plan on re-assessing on 11/12/20. Asked that he let SW know the plan to ensure proper d/c planning.
--- NOTE | 2020-11-09 12:30 | NUR ---
Spoke w/ pt about the JONI wound vac, which he had done some research on line. Told him that SW had spoke to Dr. Clay Davis' PA, & told him of their plan at this time. He is hopeful of not needing another I&D because this last one has knocked him for a loop & thanked SW for the update. He did not have any other questions/concerns.
--- NOTE | 2020-11-09 12:30 | NUR ---
Follow-up visit; Patient thanked Lock Operator for looking in on him again today and wishing him well and God's blessings.
--- NOTE | 2020-11-09 15:10 | NUR ---
Patient concerned about demarcation to his right upper thigh. Upper thigh is red, but not warm. Dressing to upper thigh was removed and left open to the air. Upon observation of incision site, bloody drainage was observed to the RBKA dressing. This nurse changed out dressing for the third time since this morning due to drainage. A call was placed to AYDEE Liu with Ortho. Awaiting a return call.
[2020-11-09 15:30] VITALS: BP 118/63; PULSE 54; TEMP 98.3
--- NOTE | 2020-11-09 15:35 | NUR ---
Received return call from AYDEE Liu with Ortho per Dr. Quinteros orders: Lie patient in supine position for 2 to 3 hours at a time. Ice and elevate Right Lower extremity. Continue with xeroform to incision, sterile gauze over that and secured with kerlix and dionicio wrap. Change as needed. Ortho will stop by tomorrow to see patient. Call with any concerns. VSS at this time.
--- NOTE | 2020-11-09 17:19 | NUR ---
Patient's blood sugar was 59 and symptoms of shaking. He ate his supper and ate icecream. Rechecked blood sugar in 15 minutes and it was 46. Patient given another cup of ice cream and he is eating it at this time. Will continue to monitor.
--- NOTE | 2020-11-09 17:42 | NUR ---
Patient blood sugar was rechecked at 1730 and is now 90. Will recheck in one hour. Dr. Delgado was notified of this occurance. No new orders at this time.
--- NOTE | 2020-11-09 19:44 | NUR ---
Patient's blood sugar was checked and is above 90 now. Patient resting in bed with right leg elevated and ice applied to stump. Will continue to monitor.
--- NOTE | 2020-11-09 20:00 | NUR ---
PT RESTING IN BED. HEAD OF BED DOWN . STUMP ELEVATED. ICE PACKS APPLIED TO RT STUMP. OCCLUSIVE DRSG CDI AT THIS TIME. AT BEDSIDE. CALL LIGHT IN REACH. BED ALARM SET.
[2020-11-10 04:05] VITALS: BP 120/69; PULSE 55; TEMP 98.4
[2020-11-10 08:01] VITALS: BP 130/65; PULSE 61
[2020-11-10 16:31] VITALS: BP 128/68; PULSE 56; TEMP 97.8
--- NOTE | 2020-11-10 17:20 | NUR ---
Patient attended group therapy and tolerated well. Independent in the room and nurse present when transfering from the bed to wheelchair and back. VSS. PICC JASS CDI. Dressing right leg reenforced d/t increased bleeding from site. Leg elevated on pillow. Pain medication given when requested. No further needs expressed from the patient. Contact precautions in place. Call light within reach
--- NOTE | 2020-11-10 19:10 | NUR ---
PT RESTING IN BED. AT SIDE. CONTINUED ISOLAION FOR MRSA. NO NEEDS AT THIS TIME.
[2020-11-11 04:56] VITALS: BP 129/67; PULSE 51; TEMP 97.9
--- NOTE | 2020-11-11 11:52 | NUR ---
Patient resting in bed, right leg elevated on pillows per ortho instruction. AYDEE Liu with Ortho changed dressing to right below the knee incision. Area was red, with bloody drainage. He cleansed area with normal saline, patted dry and then applied xeroform, 4x4 gauze, kerlix, and secured with an dionicio wrap. Patient tolerated well. Patient is to continue to elevate RLE to help with healing. Will continue to monitor. Patient's partner arrived at 11:45 AM to visit patient.
--- NOTE | 2020-11-11 14:55 | NUR ---
Patient having some constipation this afternoon. Given prn miralax. Patient's stopped by and assisted patient with grooming and changing out his clothing. Patient currently resting in bed, call light in reach and denies any questions at this time.
--- NOTE | 2020-11-11 14:58 | NUR ---
Patient reported some shakiness this afternoon. Blood sugar checked and is WNL at this time. Patient ate all his lunch and had an afternoon snack. Will continue to monitor.
[2020-11-11 16:47] VITALS: BP 134/56; PULSE 60; TEMP 97.8
[2020-11-12 06:16] VITALS: BP 125/69; PULSE 60; TEMP 98.2
[2020-11-12 06:59] LABS: BASO % 0.4 % (0.0-2.0); EOS # 0.2 (0.0-0.7); GRAN # 4.2 (1.4-6.5); GRAN % 60.2 % (42.2-75.2); HEMOGLOBIN 10.9 g/dl (13.5-18.0); LYMPH # 1.7 (1.2-3.4); LYMPH % 24.7 % (20.0-51.0); MEAN CELL VOLUME 89 fl (80.0-100.0); MEAN CORPUSCULAR HEMOGLOBIN 28 pg (27.0-31.0); MEAN CORPUSCULAR HGB CONC 31 g/dl (33.0-37.0); MEAN PLATELET VOLUME 9.5 fl (7.4-10.4); MONO # 0.8 (0.1-0.6); MONO % 11.1 % (1.7-9.3); PLATELET COUNT 196 K/mm3 (130-400); RED BLOOD COUNT 3.94 M/mm3 (4.20-5.60); REDCELL DISTRIBUTION WIDTH-CV 17.4 % (11.5-14.5)
[2020-11-12 07:07] LABS: HEMATOCRIT 35.2 % (42.0-52.0)
[2020-11-12 07:08] LABS: ALBUMIN 3.8 gm/dL (3.5-5.0); BILIRUBIN,TOTAL 0.5 mg/dL (0.0-1.0); CALCIUM 9.5 mg/dL (8.4-10.2); CREATININE, serum 1.15 (0.66-1.25); POTASSIUM 3.5 mmol/L (3.4-5.0); TOTAL PROTEIN 7.6 gm/dL (6.4-8.2)
--- NOTE | 2020-11-12 07:45 | NUR ---
Received critical value report from lab on Vanc trough and it was 22.19. This was reported to pharmacy who is managing the vanomycin. Since this was drawn to early another vanc trough will be drawn at 9:30 AM this morning and this result will be communicated to the physician and pharmacy.
[2020-11-12 09:18] LABS: ERYTHROCYTE SEDIMENTATION RATE 38 mm/hr (0-30)
--- NOTE | 2020-11-12 11:18 | NUR ---
Patient's dressing to his right below the knee amputation incision had fallen off this morning so this nurse changed dressing. This nurse observed dry bloody drainage to area and applied xeroform, gauze/ABD pads x 2 and secured with kerlix and dionicio wrap. Patient tolerated well. He is currently working with OT at this time. Will continue to monitor.
--- NOTE | 2020-11-12 15:00 | NUR ---
Present while Dr. Williamson examined the stump incision. He decided to place the JONI wound vac back on since the incision was not draining like initially. Discussed d/c of tomorrow, 11/13/20, w/ Dr. Williamson & did not see why that would not work but plans on coming back in to look at the wound & JONI wound vac. Told him that SW has the IV antibiotic, home health, & equipment set up. After Dr. Williamson left spoke w/ pt about d/c plans for tomorrow, 11/13/20. He did not seem to have a problem w/ it. Reviewed w/ him again that all SW needs to do is let [facility], [facility], & [facility] know of his d/c date. We also talked about the w/c, which he does want. Told him that we probably won't be able to have it by tomorrow but they can deliver it to his home. Inquired if he as any other questions or concerns at this time. He told SW that he did not & felt that everything is ready. Attempted to contact Jaqueline at [facility]. She was not available so left her a message of pt's d/c for tomorrow. Contacted Celena at [facility] & informed her of the d/c date. She informed SW that she has the transfer board & bariatric drop arm commode. Also requested a 22" w/c w/ swing away arm rest. Was told this item will probably not be available by tomorrow, which SW told her was fine because pt has something he can use in the meantime. Faxed the script w/ the add on for the 22" wheelchair w/ swing away arm rest. Attempted to contact Isela at [facility]. She was not availabel so left a message of pt's d/c for tomorrow.
[2020-11-12 16:41] VITALS: BP 132/64; PULSE 55; TEMP 98.1
--- NOTE | 2020-11-12 19:22 | NUR ---
RECEIVED CHANGE OF SHIFT REPORT FROM DAY SHIFT NURSE. CONTACT ISOLATION CONTINUES. ANTICIPATE DISCHARGE TOMORROW.
--- NOTE | 2020-11-12 19:43 | NUR ---
Patient attended all therapies this shift. He ate well for all meals. He was seen by Dr. Williamson this afternoon and Dr. Williamson applied a new wound vac to his left leg incision. This nurse was asked to apply another Tegaderm dressing over the original dressing to help the wound vac suction more effectively. This was completed and wound device is working well at this time. Follow up appointment calls were made for Dr. Williamson (waiting on a return call) and Dr. Yun, PCP. Nursing staff will need to call the Infectious Disease physician, Dr. Ruiz tomorrow for a follow up appointment with patient.
[2020-11-13 05:39] VITALS: BP 117/66; PULSE 53; TEMP 96.8
--- NOTE | 2020-11-13 07:00 | NUR ---
awake resting in bed, bedside shift report received from PAULINE Bennett
--- NOTE | 2020-11-13 07:08 | NUR ---
CHANGE OF SHIFT REPORT GIVEN TO DAY SHIFT NURSE, SCOTT CARPENTER.
--- NOTE | 2020-11-13 07:40 | NUR ---
had breakfast and tolerated well, full assessment completed, see interventions for further info, wound vac appears to be functioning properly at this time, dressing to right stump with dark red dried drainage, denies needs at this time
--- NOTE | 2020-11-13 09:00 | NUR ---
out of room with physical therapy
[2020-11-13] MEDS ORDERED: DOXYCYCLINE HY100 MG PO (09:14)
[2020-11-13] MEDS ORDERED: AMOXICILLIN 8751 TAB PO (09:14)
--- NOTE | 2020-11-13 12:07 | NUR ---
Visited w/ pt about d/c for today, 11/13/20. He stated he feels he is ready & has no questions or concerns at this time. Told him that it appears they are switching his IV antibiotics to PO, which he was pleased to hear. Told him that [facility] will be out tomorrow, 11/14/20 around 9:00 am. Also provided him w/ the name & phone number to coordinate the delivery of his equipment when he gets home. Pt was very thankful for everything.
[2020-11-13] MEDS ORDERED: TOUJEO MAX300 UNIT/1 SQ (12:12)
[2020-11-13] MEDS ORDERED: ADMELOG SO100 UNIT/1 SQ (12:13)
--- NOTE | 2020-11-13 13:41 | NUR ---
Follow-up; David told Chemist Assistant he is preparing to go home today. Chemist Assistant wished him well and offered God's blessings.
--- NOTE | 2020-11-13 14:28 | NUR ---
discharge instructions given to patient and his spouse, verbalizes understanding
--- NOTE | 2020-11-13 14:39 | NUR ---
discharged per WC
--- NOTE | 2020-11-15 13:15 | NUR ---
Discharge QIM scores were reviewed by the team. Code of 6 chosen for toilet hygiene was determined by team discussion to be the most usual performance for this patient during the assessment period. Code of 6 chosen for toileting transfers was determined by team discussion to be the most usual performance for this patient during the assessment period. Code of 6 chosen for upper body dressing was determined by team discussion to be the most usual performance for this patient during the assessment period. Code of 6 chosen for lower body dressing was determined by team discussion to be the most usual performance for this patient during the assessment period. Code of 3 for chair/bed to chair transfers was determined by team discussion to be the most usual performance for this patient during the assessment period.--PD Sridevi
== END 2020-11-13 14:39 | disposition home health service (06) | DRG 463 ==
PROVIDERS: Orthopaedic Surgery; ADMIT Internal Medicine
PROC: 0JCN0ZZ Extirpation of Matter from Right Lower Leg Subcutaneous Tissue and Fascia, Open Approach (ICD-10-PCS; 2020-11-08)
PROC: 0JBN0ZZ Excision of Right Lower Leg Subcutaneous Tissue and Fascia, Open Approach (ICD-10-PCS; principal; 2020-11-08 13:00)
DX: T87.43 Infection of amputation stump, right lower extremity (principal); A41.9 Sepsis, unspecified organism; L03.115 Cellulitis of right lower limb; I50.22 Chronic systolic (congestive) heart failure; Z68.41 Body mass index [BMI] 40.0-44.9, adult; Z68.42 Body mass index [BMI] 45.0-49.9, adult; E11.40 Type 2 diabetes mellitus with diabetic neuropathy, unspecified; I11.0 Hypertensive heart disease with heart failure; I25.10 Atherosclerotic heart disease of native coronary artery without angina pectoris; G47.33 Obstructive sleep apnea (adult) (pediatric); I27.20 Pulmonary hypertension, unspecified; F31.9 Bipolar disorder, unspecified; I25.2 Old myocardial infarction; Y83.9 Surgical procedure, unspecified as the cause of abnormal reaction of the patient, or of later complication, without mention of misadventure at the time of the procedure; E11.649 Type 2 diabetes mellitus with hypoglycemia without coma; K21.9 Gastro-esophageal reflux disease without esophagitis; S30.812A Abrasion of penis, initial encounter; X58.XXXA Exposure to other specified factors, initial encounter; Y92.239 Unspecified place in hospital as the place of occurrence of the external cause; L30.4 Erythema intertrigo; E66.9 Obesity, unspecified; F41.9 Anxiety disorder, unspecified; E78.5 Hyperlipidemia, unspecified; R53.81 Other malaise; Z79.82 Long term (current) use of aspirin; Z79.4 Long term (current) use of insulin; Z79.891 Long term (current) use of opiate analgesic; Z99.81 Dependence on supplemental oxygen; Z95.1 Presence of aortocoronary bypass graft; Z95.5 Presence of coronary angioplasty implant and graft; Z89.512 Acquired absence of left leg below knee; Z89.511 Acquired absence of right leg below knee; Z88.8 Allergy status to other drugs, medicaments and biological substances
CPT/HCPCS: 99223-AI; 99231-AI; 99232-AI; 99233-AI; 99239; J0692; J1170; J1650; J1815; J2405; J2704; J3010; J3370; J7050

== ENCOUNTER 2021-11-29 07:58 | Day surgery (SDC) | payer BC, MEDICARE ==
[~2021-11-29] VITALS: Ht 175.3 cm; Wt 131.8 kg
[2021-11-29] VITALS (15 sets, daily range): BP systolic 103–144; BP diastolic 56–79; PULSE 49–79; TEMP 97.6–98.7
[~2021-11-29 07:58] MED LIST changes: +AMOXICILLIN 8751 TAB PO; +DESENEX TP; +DOXYCYCLINE HY100 MG PO; +FIBER GUMMIES2.5 GM PO; +HUMULIN R 10100 U/ML SQ; +LEVEMIR100 U/ML SQ; +RANEXA 500MG T500 MG PO; +REPATHA SU140 MG/1 M SQ; +VANCOCIN HCL1 GM IV; -VITAMIN D 1001000 IU PO; +VITAMIN D31000 IU PO; +ZESTRIL 5MG5 MG PO
[2021-11-29 09:07] LABS: HEMATOCRIT 44.7 % (42.0-52.0); HEMOGLOBIN 15.5 g/dl (13.5-18.0); MEAN CELL VOLUME 89 fl (80.0-100.0); MEAN CORPUSCULAR HEMOGLOBIN 31 pg (27-31); MEAN CORPUSCULAR HGB CONC 35 g/dl (33.0-37.0); MEAN PLATELET VOLUME 9.7 fl (7.4-10.4); PLATELET COUNT 186 K/mm3 (130-400); RED BLOOD COUNT 5.03 M/mm3 (4.20-5.60); REDCELL DISTRIBUTION WIDTH-CV 15.1 % (11.5-14.5)
[2021-11-29 09:15] LABS: PROTHROMBIN TIME 11.4 SECONDS (9.7-12.8)
[2021-11-29 09:23] LABS: CALCIUM 8.7 mg/dL (8.4-10.2); CREATININE, serum 1.22 mg/dL (0.72-1.25)
--- NOTE | 2021-11-29 10:06 | NUR ---
See merge for all medication, assessment, interventions, and vital sign times.
[2021-11-29] MEDS ORDERED: TOUJEO MAX300 UNIT/1 SQ (10:20)
[2021-11-29] MEDS ORDERED: RANEXA 500MG T500 MG PO (10:24)
[2021-11-29] MEDS ORDERED: LUNESTA3 MG PO (10:25)
[2021-11-29] MEDS ORDERED: PRILOSEC 20MG20 MG PO (10:26)
--- NOTE | 2021-11-29 14:20 | NUR ---
Received order for outpatient cardiac rehab phase II. Staff went to patient room 318. Patient laying in bed eating lunch. Monitors are in place. Spoke with patient regarding Cardiac Rehab. Patient states he has attending Cardiac Rehab in the past but it has been a couple of years. He states he should probably attend again. Discussed cardiac risk factors. Patient states that he is aware of his risk factors ie- diabetes. Patient and staff agreed to call him next week to schedule a date and time to start.
--- NOTE | 2021-11-29 19:30 | NUR ---
Initial shift assessment done- denies any pain tonight-- Tele on, Right groin cath site with gauze/occlusive dressing, clean dry and intact, site soft/no hematoma bruising- will give a snack tonight-- no requests, urinal at bedside, states will not get out of bed tonight-- has both prothesis here but will just use the urinal tonight- IV fluids of 1/2 NS at 100cc/hr
--- NOTE | 2021-11-30 00:10 | NUR ---
Right groin site remains clean and dry- soft, no hematoma- VSS, set up patient home cpap for patient- no requests.
[2021-11-30 03:43] LABS: BASO % 0.4 % (0.0-2.0); EOS # 0.1 K/mm3 (0.0-0.7); EOS % 1.9 % (0.0-4.0); GRAN # 4.3 K/mm3 (1.4-6.5); GRAN % 57.1 % (42.2-75.2); HEMATOCRIT 44.5 % (42.0-52.0); LYMPH # 2.3 K/mm3 (1.2-3.4); LYMPH % 30.9 % (20.0-51.0); MEAN CELL VOLUME 91 fl (80.0-100.0); MEAN CORPUSCULAR HEMOGLOBIN 31 pg (27-31); MEAN CORPUSCULAR HGB CONC 34 g/dl (33.0-37.0); MEAN PLATELET VOLUME 9.9 fl (7.4-10.4); MONO # 0.7 K/mm3 (0.1-0.6); MONO % 9.3 % (1.7-9.3); PLATELET COUNT 190 K/mm3 (130-400); RED BLOOD COUNT 4.89 M/mm3 (4.20-5.60); REDCELL DISTRIBUTION WIDTH-CV 15.4 % (11.5-14.5)
[2021-11-30 04:05] VITALS: BP 130/65; PULSE 54; TEMP 98
--- NOTE | 2021-11-30 04:10 | NUR ---
Has been resting for most of the night- VSS, using home CPAP, right groin site remains clean/no drainage- site soft, no hematoma- did say he checked his own blood sugar and it was in the 130,s, did request a small snack- given
[2021-11-30 06:09] LABS: CALCIUM 8.8 mg/dL (8.4-10.2); CREATININE, serum 1.09 mg/dL (0.72-1.25); POTASSIUM 3.9 mmol/L (3.5-4.5)
[2021-11-30 07:17] VITALS: BP 118/62; PULSE 56; TEMP 97.8
--- NOTE | 2021-11-30 09:00 | NUR ---
Pt. sitting up in bed. Pt. is A&OX3, assessment complete. INT to lt. forearm patent. Rt. groin cath site CDI. Pt. denies pain or other needs, call light within reach.
[2021-11-30 11:21] VITALS: BP 101/49; PULSE 55; TEMP 98.1
--- NOTE | 2021-11-30 11:24 | NUR ---
SW met with patient to complete intake. Patient states that he lives with his Deion Billings [phone]. Patient has prosthetic legs, is independent with ADL's and does not utilize HH services at this time. PCP is Dr Yun, and phramacy is [facility]. DPOA/HC is spouse. Patient states he plans to return to his home upon dc. SW will continue to follow. DC plan: home
[2021-11-30] MEDS ORDERED: RANEXA1000 MG PO (12:07)
--- NOTE | 2021-11-30 13:00 | NUR ---
Pt. has orders to discharge. Pt. education, medications, health summary, and follow-ups reviewed with the pt. Pt. voices understanding. INT discontinued from lt. forearm. pt. dressed independently and waiting for to arrive.
--- NOTE | 2021-11-30 13:20 | NUR ---
Pt. escorted out by wheelchair by QUALITY TECHNICIAN.
== END 2021-11-30 13:25 | disposition home or self-care (01) ==
LOC: COL.CAR 07:58 → MEDICAL 07:59 → COL.CAR 08:30 → MEDICAL 12:12 → COL.CAR 12:13 → MEDICAL 11-30 13:25 → COL.CAR 11-30 13:25 → MEDICAL 11-30 13:25
PROVIDERS: Internal Medicine Cardiovascular Disease
DX: I25.110 Atherosclerotic heart disease of native coronary artery with unstable angina pectoris (principal); E11.9 Type 2 diabetes mellitus without complications; Z79.4 Long term (current) use of insulin
CPT/HCPCS: C1725; C1760; C1769; C1874; C1887; C1894; C9600; J0583; J1815; J2250; J3010; Q9967

== ENCOUNTER → 2023-04-23 | Outpatient (CLI) | payer BC, MEDICARE ==
[~2023-04-23] MED LIST changes: +CARDIZEM CD 18180 MG PO; +RANEXA1000 MG PO
== END ==
LOC: MHCPAIN 09:29
DX: M54.16 Radiculopathy, lumbar region (principal)
CPT/HCPCS: J1100; Q9967

== ENCOUNTER → 2023-05-13 | Outpatient (CLI) | payer BC, MEDICARE | LOC: MHCPAIN 15:43 | DX: M47.897 Other spondylosis, lumbosacral region (principal); M48.061 Spinal stenosis, lumbar region without neurogenic claudication; E11.40 Type 2 diabetes mellitus with diabetic neuropathy, unspecified | CPT/HCPCS: G0463 ==